=== PATIENT | male | born 1970 | race Caucasian/White ===

== ENCOUNTER 2020-11-15 09:01 | Outpatient (CLI) | payer SELFPAY ==
--- NOTE | 2020-11-15 09:00 | XR_ITS ---
WS: [id number] KUB, AP view, 11/15/2020 Clinical Data: URETERAL STONE Comparison: None. Findings: No abnormal intraabdominal masses are seen. There is no dilatated small bowel or evidence of obstruct ion. There are clustered calcifications to the left of the L3-L4 disc interspace which could be in the pro ximal left ureter. There are calcifications on the left side of the true pelvis which may be phleboli ths but one could be a left UVJ calculus. No calcifications overlying the right renal fossa. XR/XR KUB [id number] Impression: 1. Possible proximal left ureteral calculi. 2. Possible left UVJ calculus.
== END 2020-11-15 09:02 | disposition home or self-care (01) ==
LOC: RAD 09:08
PROVIDERS: PCP Urology; Visit Provider Nurse Practitioner Family
DX: N20.1 Calculus of ureter (principal)
CPT/HCPCS: 74018; 81003; 87077; 87086; 87184

== ENCOUNTER → 2020-11-22 08:31 | Outpatient (BNVA) | payer SELFPAY | PROVIDERS: PCP Urology; Visit Provider Urology | DX: N20.1 Calculus of ureter (principal); Z20.822 Contact with and (suspected) exposure to COVID-19 | CPT/HCPCS: 87635 ==

== ENCOUNTER 2020-11-24 09:21 | Outpatient (CLI) | payer OTHER, SELFPAY ==
--- NOTE | 2020-11-24 10:00 | XR_ITS ---
WS: [id number] Exam: XR KUB [id number] Date/Time of Exam: 11/24/2020 9:47 AM Reason For Exam: STONE Comparison 11/15/2020. A 9 mm irregular calcification is noted along the left paraspinal region at about the level of the L3 -4 disc. This may represent a left ureteral stone. This shows no change in location since previous ex am. Several small left pelvic calcifications are also noted unchanged. No bowel obstruction or free a ir. Moderate amount stool in the colon. No sign of organ enlargement. No other calcifications are see n in the region of the kidneys. XR/XR KUB [id number] IMPRESSION: 1. 9 mm irregular calcification noted along the left paraspinal region at about the level of the L3-4 disc. This shows no change in appearance or location sin ce previous study. This could be a stone in the left ureter. 2. No acute abdominal process noted.
== END 2020-11-24 09:22 | disposition home or self-care (01) ==
LOC: RAD 09:23
PROVIDERS: PCP Urology; Visit Provider Urology
DX: N20.9 Urinary calculus, unspecified (principal); Z20.822 Contact with and (suspected) exposure to COVID-19
CPT/HCPCS: 74018; 81003; 87635

== ENCOUNTER 2020-12-01 11:39 | Day surgery (SDC) | payer SELFPAY ==
[2020-11-30 13:32] VITALS: BMI 49.9
--- NOTE | 2020-12-01 | XR_ITS ---
WS: [id number] KUB, AP view, 12/01/2020 Clinical Data: OR PICS Comparison: KUB, 11/24/2020. Findings: No abnormal intraabdominal masses are seen. There is no dilatated small bowel or evidence of obstruc tion. The 0.9 cm irregular calcification at the level of the left L3 transverse process remains the same. T here are phleboliths in the left side of the true pelvis. No calcifications are overlying the right k idney. XR/XR KUB [id number] Impression: No change in calcification to the left L3 transverse process which could be in the left renal pelvis or proximal ureter.
[2020-12-01 12:13] VITALS: BP 211/117; PULSE 81; RESP 18; TEMP 37; O2SAT 96
[2020-12-01] MEDS: sodium chloride 0.9% 1,000 ML 30 ML IV (13:00)
--- NOTE | 2020-12-01 13:11 | W.PM.OPSUD ---
Surgery/Procedure H&P Update DATE OF PROCEDURE: December 01, 2020 DATE H&P PERFORMED: 11/24/20 H&P UPDATE INFORMATION: I have reviewed H&P completed within last 30 days, I have examined patient prior to procedure, No changes to prior documentation and H&P is in [facility] EMR on date indicated PREOP DIAGNOSIS: Refractory large left ureteral calculus PLANNED PROCEDURE: Operation Date: 12/01/20 13:20 Proposed Procedures p Cystoscopy 21655 36063 N20.1(Not Applicable) - Richy Sterling MD s Ureteral Stent Placement(Left) - Richy Sterling MD s ESWL(Not Applicable) - Richy Sterling MD
--- NOTE | 2020-12-01 13:12 | PM.OP ---
Operative Report Date of procedure: December 01, 2020 Pre-op Diagnosis: Refractory large left ureteral calculus Post-op Diagnosis: Same Procedure Done: 1. Cystoscopy, left ureteral stent placement 2. Extracorporeal shockwave lithotripsy to left ureteral calculus Implants: Left ureteral stent (7 Greenlandic by 26 cm double-pigtail without string) Pathology: None Surgeon: Asher Anesthesia: General Estimated blood loss: None Urine output: Not measured Complications: None Findings: 7 Greenlandic by 26 cm double-pigtail stent placed Stone easily identified and responded very well to treatment. Condition: stable Disposition: PACU Brief History: Mignon is a very pleasant 50-year-old white female with a long history of recurrent urolithiasis. Recently diagnosed with an obstructing left proximal ureteral stone. Symptoms well controlled with conservative measures and ultimately she elected to proceed with ESWL and stent. She has had multiple treatments with ESWL in the past with good response. Very familiar with the procedure stent etc. Procedure: After routine preoperative evaluation examination and obtaining of informed consent she was taken to the operating suite on 12/01/2020 where general anesthesia was administered without difficulty after appropriate timeout was performed, SCDs confirmed to be functioning, preoperative antibiotics administered, beta-simran protocol confirmed. Prepped and draped in usual sterile fashion in dorsolithotomy position paying careful attention to avoiding pressure points. 21 Greenlandic cystoscope with 30 degree lens was introduced into the urethra meatus and advanced into the bladder under videoscopy. Bladder was systematically examined and found to be within normal limits. There were no stones. Flexible tip guidewire was then easily advanced up the left ureter bypassing the stone curling in the area of the renal pelvis and a 7 Greenlandic by 26 cm double-pigtail stent was advanced over the guidewire through the cystoscope into appropriate position as confirmed via fluoroscopy and cystoscopy. Bladder was drained and the scope removed. She was then placed in supine position and the stone was brought to the focal point utilizing biplanar fluoroscopy. Shockwave was initiated intensity of 1 advanced slowly to an intensity of 4. Rate was begun at 60 with relatively early change. Real-time fluoroscopy was utilized for positional changes as needed. After significant change had occurred the right was increased to 80 and the last 500 shocks at 90. By the completion of the procedure the stone appeared to be completely fragmented. She tolerated procedure well without complications and was awakened in the operating room and returned to the cart room in stable condition. PLANS: 1. Anticipate discharge from outpatient surgery today 2. Follow-up next week with KUB and possible cystoscopy with stent removal.
[2020-12-01] MEDS: levofloxacin-dextrose 5 % 500 MG/100 ML PREMIX 100 MG IV (13:20)
--- NOTE | 2020-12-01 13:25 | P.ANESASSM_ITS ---
Pre-Anesthetic Assessment Pre-Anesthetic Assessment: Height/Weight: Height 1.65 m Weight 136.078 kg Temp Pulse Resp BP Pulse Ox 98.6 F 81 18 211/117 96 12/01/20 12:13 12/01/20 12:13 12/01/20 12:13 12/01/20 12:13 12/01/20 12:13 Preop Diagnosis: Refractory large left ureteral calculus Proposed Procedure: Operation Date: 12/01/20 13:20 Proposed Procedures p Cystoscopy 33892 64117 N20.1(Not Applicable) - Richy Sterling MD s Ureteral Stent Placement(Left) - Richy Sterling MD s ESWL(Not Applicable) - Richy Sterling MD Was Beta Erin taken within 24 hours: N/A Was Clonidine taken within 24 hours: N/A Last intake: Intake Last Liquid Date 11/30/20 Last Solid Date 11/30/20 Social: Social History: No alcohol and No tobacco Exam: Pre-Anes Outpt Exam: alert, oriented x 3, clear to auscultation diamante aterally and regular rate & rhythm Airway: Submandibular: WNL Cervical ROM: WNL MP: 2 Dentition: Full : Comments: Kidney stones Metabolic: Metabolic: Morbid obesity Anesthetic Plan: ASA status: 3 Anesthesia: General Risk of > 500 ml blood loss (7ml/kg in children): No PFSH Anesthesia PFSH: Medical History (Updated 11/26/20 @ 08:36 by Richy Sterling MD) History of stent insertion of renal artery BILATERAL Hydroureteronephrosis Left ureteral calculus Surgical History History of knee replacement Hx of appendectomy Family History Other No pertinent family history Social History Smoking and tobacco status: former smoker Alcohol intake: current Alcohol intake frequency: holidays/special occasions only Marital status: Current occupational status: unemployed History of recent travel: No Data Anesthesia Cardiac Studies: No Data to Display
[2020-12-01 14:39] VITALS: BP 167/98; PULSE 70; RESP 16; TEMP 36.3; O2SAT 95
[2020-12-01 14:45] VITALS: BP 165/95; PULSE 78; RESP 20; O2SAT 97
[2020-12-01 14:50] VITALS: BP 138/84; PULSE 79; RESP 20; O2SAT 97
[2020-12-01 14:55] VITALS: BP 157/89; PULSE 90; RESP 20; TEMP 36.4; O2SAT 95
[2020-12-01 14:58] VITALS: BP 163/101; PULSE 83; RESP 20; TEMP 36.4; O2SAT 94
--- NOTE | 2020-12-01 16:28 | ANE.PACU2 ---
Inpatient post-anesthesia follow up: Airway intact: Yes Vital signs: Temperature 97.6 F Pulse Rate 83 Respiratory Rate 20 Blood Pressure 163/101 Pulse Oximetry 94 Oxygen Delivery Me thod Room Air Oxygen Flow Rate 6 Fraction of Inspir ed Oxygen Hydration adequate: Yes Nausea and vomiting: No Pain level: 2 Mental status: Baseline
== END 2020-12-01 16:00 | disposition home or self-care (01) ==
PROVIDERS: PCP Urology; Visit Provider Urology
PROC: 0TJB8ZZ Inspection of Bladder, Via Natural or Artificial Opening Endoscopic (ICD-10-PCS; CPT 52000; principal; 2020-12-01 12:50)
PROC: (CPT 50605; 2020-12-01 12:50)
PROC: (CPT 50590; 2020-12-01 12:50)
DX: N20.1 Calculus of ureter (principal); E66.01 Morbid (severe) obesity due to excess calories; Z68.42 Body mass index [BMI] 45.0-49.9, adult; Z87.891 Personal history of nicotine dependence
CPT/HCPCS: 50590; 52332; 74018; 96365; C2625; J1100; J1956; J2370; J2405; J2704; J2710; J3010; J3490; J7030

== ENCOUNTER 2020-12-13 09:42 | Outpatient (CLI) | payer SELFPAY ==
--- NOTE | 2020-12-13 07:00 | XR_ITS ---
WS: [id number] Exam: XR KUB [id number] Date/Time of Exam: 12/13/2020 9:45 AM Reason For Exam: N20.1 - Calculus of ureter Comparison 12/01/2020. A left-sided ureteral catheter is in place appearing to be in appropriate location. There are small c alcifications superimposing the left kidney most likely representing renal stones. There are several nonspecific pelvic calcifications are noted. No bowel obstruction or free air. Visualized organ arias ns are intact. XR/XR KUB [id number] IMPRESSION: 1. Left-sided ureteral catheter appearing to be in satisfactory position. 2. Several small calcification superimpose the left kidney and apparently repre sent known renal stones. No acute abdominal process.
== END 2020-12-13 09:43 | disposition home or self-care (01) ==
LOC: RAD 09:44
PROVIDERS: PCP Urology; Visit Provider Urology
DX: N20.1 Calculus of ureter (principal); Z96.0 Presence of urogenital implants
CPT/HCPCS: 74018; 81003

== ENCOUNTER 2021-01-25 09:14 | Outpatient (CLI) | payer SELFPAY ==
--- NOTE | 2021-01-25 09:30 | XR_ITS ---
WS: [id number] XR KUB [id number] REASON FOR EXAM: URETERAL CALCULUS FINDINGS: Compared to 12/13/2020 the left ureteral stent has been removed. No urinary tract calculi can be identified. The small calculi seen previously overlying the lower lef t kidney are not identifiable. No other significant abnormality or interval change. XR/XR KUB [id number] IMPRESSION: Left ureteral catheter is been removed. No definite urinary tract calculi ident ified.
== END 2021-01-25 09:15 | disposition home or self-care (01) ==
PROVIDERS: PCP Nurse Practitioner; Visit Provider Urology
DX: N20.1 Calculus of ureter (principal)
CPT/HCPCS: 74018; 81003

== ENCOUNTER → 2021-02-20 10:13 | Outpatient (BNVA) | payer SELFPAY | PROVIDERS: PCP Nurse Practitioner; Visit Provider Nurse Practitioner | DX: I10 Essential (primary) hypertension (principal) | CPT/HCPCS: 80053; 80061; 85025 ==

== ENCOUNTER 2021-03-07 10:27 | Emergency (ER) | payer OTHER, SELFPAY ==
[2021-03-07] VITALS (10 sets, daily range): BP systolic 112–143; BP diastolic 73–94; PULSE 22–98; RESP 15–95; TEMP 37.8; O2SAT 89–96; BMI 51.5
--- NOTE | 2021-03-07 10:36 | XR_ITS ---
WS: [id number] Portable AP upright chest, 03/07/2021 Clinical Data: covid symptoms Comparison: None. Findings: The patient has patchy bilateral pulmonary opacities consistent with pneumonia. The heart is normal. The aortic arch and descending aorta show tortuosity. No nodules, masses or effusions are seen. XR/XR chest 1V portable [id number] Impression: 1. Patchy bilateral pulmonary opacities consistent with pneumonia. 2. Atherosclerosis.
--- NOTE | 2021-03-07 11:33 | ED_ITS ---
HPI - COVID General: Chief Complaint: COVID symptoms Stated Complaint: COVID SYMPTOMS Time Seen by Provider: 03/07/21 11:33 Triage information: Has fever, cough or shortness of breath . Exposure to COVID + person last 14 days History of Present Illness: HPI Narrative: Ms. Valencia is a 50-year-old lady with significant past medical history of hypertension, hyperlipidemia, obesity, and asthma who presents emerged department due to Covid-like symptoms. Symptom onset 1 week ago and subacute. She did have known sick contacts including her 's friend who did not tell her that he was Covid positive and subsequently her developed her symptoms. She endorses initially having headaches which have since resolved, she has had fevers, cough, shortness of breath, nausea, diarrhea for 5 days, and generalized aches and pains. Her symptoms are worse with exertion but do not go with rest. There is no other specific changes in health identified. She has tried daci-bya-kjzudrf medications without significant relief. The intensity symptoms is moderate to severe. The course has been persistent. No other specific exacerbating or alleviating factors identified. COVID Results: SARS-CoV-2 Antigen (Rapid) Positive (Negative) H 03/07/21 11:50 03/07/21 SARS-CoV-2 RNA (RT-PCR) Not detected (NOT DETECTED) 11/24/20 11:35 11/24/20 Nasal/Oral Coronavirus 2019 PCR Not detected 11/22/20 08:31 11/22/20 Review of Systems General: Reports: 10 or more systems reviewed and unremarkable except in HPI and below Narrative: CONSTITUTIONAL: see hpi EYES - denies pain, denies loss of vision EARS - denies ear issues. NOSE - denies congestion or rhinorrhea. THROAT - denies sore throat or difficulty swallowing. CARDIOVASCULAR - denies chest pain and palpitations RESPIRATORY - see hpi GASTROINTESTINAL - see hpi GENITOURINARY - denies dysuria or urinary frequency MUSCULOSKELETAL- see hpi SKIN - denies rashes or new changed skin lesions NEUROLOGIC - denies focal weakness or sensory changes HEMATOLOGIC/LYMPHATIC - denies easy bruising or lymphadenopathy. [facility] PFSH: Medical History Asthma Cystitis cystica Essential (primary) hypertension History of stent insertion of renal artery BILATERAL Hydroureteronephrosis Left ureteral calculus Obesity, morbid, BMI 50 or higher SUZIE on CPAP Renal calculus Retained ureteral stent Surgical History History of knee replacement Right 2000 Hx of appendectomy Family History Other Adopted No pertinent family history Social History Smoking and tobacco status: former smoker Second hand smoke exposure: No Smoking risk assessment/counseling performed?: No Alcohol intake: current Alcohol intake frequency: holidays/special occasions only Desire information about alcohol rehabilitation?: No Counseling given: No Desire information about substance/drug rehabilitation?: No Counseling given: No Adopted: No Caregiver/support person: No Lives independently: Yes Household members: spouse Housing: House Marital status: Number of children: 2 service: No Current occupational status: unemployed Current occupation: Works from home History of recent travel: No Current gender identity: Female Special ching needs: Yes Female Reproductive History: Date of last menstrual period: 01/28/17 Physical Exam Narrative: EXAM NARRATIVE: GENERAL/CONSTITUTIONAL - mildly ill-appearing. No acute distress. obese Eyes - PERRL, no conjunctival injection ENMT - Atraumatic external nose and ears. dry mucous membranes NECK - supple. trachea midline CARDIOVASCULAR - regular rate and rhythm. Peripheral pulses 2+ and equal RESPIRATORY -clear to auscultation bilaterally. No retractions or accessory muscle use. ABDOMEN/GI - Nontender/Nondistended. No tenderness to percussion or evidence of peritonitis MSK - Extremities without obvious deformity or tenderness to palpation SKIN - Warm, Dry NEURO - alert and appropriately oriented. strength and sensation intact. Moves all extremities equally. PSYCH - Appropriate mood and affect Course ED course: - Monitor, IV access, and vital signs obtained. - The patient was seen and evaluated by me at bedside. - Initial evaluation was notable for supplemental oxygen in place. no acute distress. - symptom treatment ordered - Labs notable for covid +. elevated d dimer. mild transaminitis - Imaging notable for no PE, covid pneumonia findings present - patient qualifies for 3 lpm of home O2. - The most likely cause for the patient's symptoms is COVID 19. - The results of ED evaluation were discussed with the patient including the need for follow up with PCP. Return precautions, follow up plan, and prescriptions (including responsible and appropriate use) were discussed with the patient. The patient verbalized understanding and felt safe for discharge. - Upon serial reexamation the patient's condition was improved. They were discharged without incident or clinical deterioration. Vital Signs: Vital signs: Vital Signs Temperature 100.1 F H 03/07/21 10:54 Pulse Rate 85 03/07/21 16:37 Respiratory Rate 22 H 03/07/21 16:37 Blood Pressure 112/75 03/07/21 16:37 Pulse Oximetry 96 03/07/21 16:37 [facility] - COVID Medical Records: Attestation: I reviewed the patient's medical records. Lab Data: Attestation: I reviewed the patient's lab results. Labs: Lab Results 03/07/21 03/07/21 03/07/21 Range/Units 11:35 11:50 11:50 WBC 4.4 (4.0-10.0) 10^3/ uL RBC 4.59 (4.1-5.3) 10^6/u L Hgb 13.4 (11.5-15.3) g/dL Hct 41.5 (37.0-47.0) % MCV 90.4 (81-99) fl MCH 29.2 (28.0-34.0) pg MCHC 32.3 (30.0-36.0) g/dL RDW 14.2 (12.1-15.1) % Plt Count 143 (130-400) 10^3/c mm MPV 10.2 (7.4-10.4) fL Neut % (Auto) 67.5 % Lymph % (Auto) 26.1 % [place] % (Auto) 5.7 % Eos % (Auto) 0.0 % Baso % (Auto) 0.2 % Neut # (Auto) 2.94 (1.8-7.7) 10^3/u L Lymph # (Auto) 1.1 (0.8-4.8) 10^3/u L [place] # (Auto) 0.3 (0.2-0.9) 10^3/u L Eos # (Auto) 0.0 (0.0-0.8) 10^3/u L Baso # (Auto) 0.0 (0.0-0.1) 10^3/u L Nucleated RBC % (a uto) 0 % Nucleated RBCs # 0.0 /100WBC PT 13.60 (12.1-14.9) SECO NDS INR 1.01 (0.8-1.2) APTT 30.7 (23.9-36.7) SECO NDS Fibrinogen 425 (174-498) mg/dL D-Dimer 0.81 H (0-0.59) ug/mIFE U Specimen Type Arterial Sample Site Radial, right ABG pH 7.38 (7.35-7.45) ABG pCO2 35.4 (35-45) mmHg ABG pO2 80.3 (80.0-100.0) mmH g ABG HCO3 20.8 L (22-26) mmol/L ABG Base Excess -3.7 L (-2.0-2.0) mmol/ L Anand Test Pos Hematocrit 40.9 (37-47) % O2 Delivery Device Nc O2 Liters/Min 3.0 % FiO2 32.0 % Community Service Coordinator ID [place] Sodium (136-145) mmol/L Potassium (3.5-5.1) mmol/L Chloride (98-107) mmol/L Carbon Dioxide (22-29) mmol/L Anion Gap (5-19) BUN (6-20) mg/dL Creatinine (0.5-0.9) mg/dL GFR Calculation (90-130) mL/min Glucose (65-115) mg/dL Calculated Osmolal ity (285-295) mOsm/k g Lactic Acid (0.5-2.2) mmol/L Calcium (8.5-10.5) mg/dL Ferritin (15-150) ng/mL Total Bilirubin (0.15-1.2) mg/dL AST (0-32) U/L ALT (0-33) U/L Alkaline Phosphata se (35-105) IU/L Troponin T Gen 5 n g/L (0-10) ng/L Troponin T 120 [place] (0-10) ng/L Delta Troponin T C-Reactive Protein (0.0-4.9) mg/L NT-Pro-B Natriuret Pep (0-125) pg/mL Total Protein (6.6-8.7) g/dL Albumin (3.5-5.2) g/dL Globulin (1.3-4.6) g/dL Procalcitonin (0-0.5) ng/mL SARS-CoV-2 Ag (Rap id) (Negative) 03/07/21 03/07/21 03/07/21 Range/Units 11:50 11:50 11:50 WBC (4.0-10.0) 10^3/ uL RBC (4.1-5.3) 10^6/u L Hgb (11.5-15.3) g/dL Hct (37.0-47.0) % MCV (81-99) fl MCH (28.0-34.0) pg MCHC (30.0-36.0) g/dL RDW (12.1-15.1) % Plt Count (130-400) 10^3/c mm MPV (7.4-10.4) fL Neut % (Auto) % Lymph % (Auto) % [place] % (Auto) % Eos % (Auto) % Baso % (Auto) % Neut # (Auto) (1.8-7.7) 10^3/u L Lymph # (Auto) (0.8-4.8) 10^3/u L [place] # (Auto) (0.2-0.9) 10^3/u L Eos # (Auto) (0.0-0.8) 10^3/u L Baso # (Auto) (0.0-0.1) 10^3/u L Nucleated RBC % (a uto) % Nucleated RBCs # /100WBC PT (12.1-14.9) SECO NDS INR (0.8-1.2) APTT (23.9-36.7) SECO NDS Fibrinogen (174-498) mg/dL D-Dimer (0-0.59) ug/mIFE U Specimen Type Sample Site ABG pH (7.35-7.45) ABG pCO2 (35-45) mmHg ABG pO2 (80.0-100.0) mmH g ABG HCO3 (22-26) mmol/L ABG Base Excess (-2.0-2.0) mmol/ L Anand Test Hematocrit (37-47) % O2 Delivery Device O2 Liters/Min % FiO2 % Community Service Coordinator ID Sodium 135 L (136-145) mmol/L Potassium 4.5 (3.5-5.1) mmol/L Chloride 100 (98-107) mmol/L Carbon Dioxide 22 (22-29) mmol/L Anion Gap 17.5 (5-19) BUN 13 (6-20) mg/dL Creatinine 0.9 (0.5-0.9) mg/dL GFR Calculation 66.3 L (90-130) mL/min Glucose 142 H (65-115) mg/dL Calculated Osmolal ity 283 L (285-295) mOsm/k g Lactic Acid 0.7 (0.5-2.2) mmol/L Calcium 8.0 L (8.5-10.5) mg/dL Ferritin 770 H (15-150) ng/mL Total Bilirubin 0.2 (0.15-1.2) mg/dL AST 81 H (0-32) U/L ALT 44 H (0-33) U/L Alkaline Phosphata se 95 (35-105) IU/L Troponin T Gen 5 n g/L 14 H (0-10) ng/L Troponin T 120 [place] (0-10) ng/L Delta Troponin T C-Reactive Protein 43.9 H (0.0-4.9) mg/L NT-Pro-B Natriuret Pep 32 (0-125) pg/mL Total Protein 6.4 L (6.6-8.7) g/dL Albumin 3.7 (3.5-5.2) g/dL Globulin 2.7 (1.3-4.6) g/dL Procalcitonin 0.11 (0-0.5) ng/mL SARS-CoV-2 Ag (Rap id) (Negative) 03/07/21 03/07/21 Range/Units 11:50 14:21 WBC (4.0-10.0) 10^3/ uL RBC (4.1-5.3) 10^6/u L Hgb (11.5-15.3) g/dL Hct (37.0-47.0) % MCV (81-99) fl MCH (28.0-34.0) pg MCHC (30.0-36.0) g/dL RDW (12.1-15.1) % Plt Count (130-400) 10^3/c mm MPV (7.4-10.4) fL Neut % (Auto) % Lymph % (Auto) % [place] % (Auto) % Eos % (Auto) % Baso % (Auto) % Neut # (Auto) (1.8-7.7) 10^3/u L Lymph # (Auto) (0.8-4.8) 10^3/u L [place] # (Auto) (0.2-0.9) 10^3/u L Eos # (Auto) (0.0-0.8) 10^3/u L Baso # (Auto) (0.0-0.1) 10^3/u L Nucleated RBC % (a uto) % Nucleated RBCs # /100WBC PT (12.1-14.9) SECO NDS INR (0.8-1.2) APTT (23.9-36.7) SECO NDS Fibrinogen (174-498) mg/dL D-Dimer (0-0.59) ug/mIFE U Specimen Type Sample Site ABG pH (7.35-7.45) ABG pCO2 (35-45) mmHg ABG pO2 (80.0-100.0) mmH g ABG HCO3 (22-26) mmol/L ABG Base Excess (-2.0-2.0) mmol/ L Anand Test Hematocrit (37-47) % O2 Delivery Device O2 Liters/Min % FiO2 % Community Service Coordinator ID Sodium (136-145) mmol/L Potassium (3.5-5.1) mmol/L Chloride (98-107) mmol/L Carbon Dioxide (22-29) mmol/L Anion Gap (5-19) BUN (6-20) mg/dL Creatinine (0.5-0.9) mg/dL GFR Calculation (90-130) mL/min Glucose (65-115) mg/dL Calculated Osmolal ity (285-295) mOsm/k g Lactic Acid (0.5-2.2) mmol/L Calcium (8.5-10.5) mg/dL Ferritin (15-150) ng/mL Total Bilirubin (0.15-1.2) mg/dL AST (0-32) U/L ALT (0-33) U/L Alkaline Phosphata se (35-105) IU/L Troponin T Gen 5 n g/L (0-10) ng/L Troponin T 120 [place] 12.75 H (0-10) ng/L Delta Troponin T Not Reportable C-Reactive Protein (0.0-4.9) mg/L NT-Pro-B Natriuret Pep (0-125) pg/mL Total Protein (6.6-8.7) g/dL Albumin (3.5-5.2) g/dL Globulin (1.3-4.6) g/dL Procalcitonin (0-0.5) ng/mL SARS-CoV-2 Ag (Rap id) Positive H (Negative) EKG Data: EKG 1: Attestation: I personally reviewed and interpreted this EKG as follows: EKG interpretation date: 03/07/21 EKG interpretation time: 12:25 Prior EKG tracings: not available for review Interpretation: 12 lead shows regular rhythm at rate of 91 TN 143, QRS 134 Left axis deviation. BBB Interpretation: sinus rhythm. RBBB. EKG 2: Attestation: I personally reviewed and interpreted this EKG as follows: EKG interpretation date: 03/07/21 EKG interpretation time: 14:09 Prior EKG tracings: available for review Interpretation: 12 lead shows regular sinus rhythm at rate of 83 TN 152. QRS 141 L axis deviation. RBBB Interp: sinus rhythm. similar to previous COVID Results: SARS-CoV-2 Antigen (Rapid) Positive (Negative) H 03/07/21 11:50 03/07/21 SARS-CoV-2 RNA (RT-PCR) Not detected (NOT DETECTED) 11/24/20 11:35 11/24/20 Nasal/Oral Coronavirus 2019 PCR Not detected 11/22/20 08:31 11/22/20 Discharge Plan Discharge Patient Disposition: Home Clinical Impression: COVID-19, Transaminitis, Hypoxemia Condition: Stable Prescriptions: No Action valsartan 160 mg tablet 160 mg PO BEDTIME RF: 0 cat's claw (uncaria tomentosa) Liquid See Rx Instructions .ROUTE .COMPLEX RF: 0 Lemon Fenton 2 ml PO DAILY RF: 0 Micro-C Tabs 1 tab PO DAILY RF: 0 Mullein Tabs 1 tab PO DAILY RF: 0 Red Root 1 ml PO DAILY RF: 0 Vitamin B-12 1 tab PO DAILY RF: 0 Zinc Suspension 2 ml PO DAILY RF: 0 Zofran 4 mg tablet 4 mg PO Q8H PRN (Reason: Nausea And Vomiting) RF: 0 Aspir-81 81 mg Tablet,Delayed Release (Dr/Ec) 81 mg PO PRN PRN (Reason: Pain) RF: 0 Discharge Orders: Discharge ED (Routine); Ordered 03/07/21 Ordered By: Lauri Garcia Other Ambulatory Orders: DME: Oxygen (Order) Location: None Selected Ordered By: Lauri Garcia Referrals: Debbie Remy, LANGUAGE TRANSLATOR-C [Primary Care Provider] - Discharge Diet: Usual diet Discharge Activity: Resume usual activity Patient Instructions: Using Oxygen at Home (ED), Pneumonia (ED), Pneumonia - Viral Activity Restrictions/Additional Instructions: Thank you for visiting the emergency department. You were seen and evaluated for concern over COVID-19. You were found to have COVID-19. You will be sent home with home oxygen and a pulse oximeter. I would expect you to improve within the next week. Please return to the emergency department for anything that you are concerned about and feel needs emergency department evaluation. Coding Level of Care Code ED Oyster Buyer for Paco Gill
--- NOTE | 2021-03-07 11:44 | ECG_ITS ---
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 Measurements Intervals [place] Rate: 91 P: 44 HI: 143 QRS: -31 QRSD: 134 T: 3 QT: 341 QTc: 421 Interpretive Statements SINUS RHYTHM LEFT AXIS DEVIATION [QRS AXIS < -30] RIGHT BUNDLE BRANCH BLOCK [120+ ms QRS DURATION, UPRIGHT V1, 40+ ms S IN I/aVL/V4/V5/V6] MINIMAL VOLTAGE CRITERIA FOR LVH, CONSIDER NORMAL VARIANT [MEETS CRITERIA IN ONE OF: R(aVL), S(V1), R(V5), R(V5/V6)+S(V1)] No previous ECG available for comparison Electronically Signed On 03-08-2021 10:38:22 CDT by Chantal Griffin M.D. [id number]
[2021-03-07 11:48] LABS: ABG PCO2 35.4 mmHg (35-45); ABG PH Result 7.38 (7.35-7.45); Arterial Blood Gas Hematocrit 40.9 % (37-47); Base Excess ABG -3.7 mmol/L (-2.0-2.0); Blood Gas Allen Test Pos; Blood Gas Operator Identificat MONRO; Blood Gas Sample Site Radial, right; Blood Gas Sample Type Arterial; HCO3 ABG 20.8 mmol/L (22-26); Oxygen Device NC; PO2 ABG 80.3 mmHg (80.0-100.0)
[2021-03-07 12:19] LABS: INR 1.01 (0.8-1.2); Partial Thromboplastin Time 30.7 SECONDS (23.9-36.7)
[2021-03-07] MEDS: sodium chloride 0.9% 500 ML 999 ML IV (12:19)
[2021-03-07] MEDS: ondansetron 2 mg/ML SDV 2 mL 4 MG IVP (12:19)
[2021-03-07 12:20] LABS: Fibrinogen 425 mg/dL (174-498)
[2021-03-07] MEDS: ketorolac 30 mg/mL INJ 15 MG IVP (12:20)
[2021-03-07] MEDS: acetaminophen 325 mg Tablet 650 MG PO (12:20)
[2021-03-07 12:21] LABS: Basophils % 0.2 %; Hematocrit 41.5 % (37.0-47.0); Hemoglobin 13.4 g/dL (11.5-15.3); Lymphocytes # 1.1 10^3/uL (0.8-4.8); Lymphocytes % 26.1 %; Mean Corpuscular HGB Conc 32.3 g/dL (30.0-36.0); Mean Corpuscular Hemoglobin 29.2 pg (28.0-34.0); Mean Corpuscular Volume 90.4 fl (81-99); Mean Platelet Volume 10.2 fL (7.4-10.4); Monocytes # 0.3 10^3/uL (0.2-0.9); Monocytes % 5.7 %; Neutrophils # 2.94 10^3/uL (1.8-7.7); Neutrophils % 67.5 %; Nucleated Red Blood Cells % 0 %; Platelet Count 143 10^3/cmm (130-400); Red Blood Count 4.59 10^6/uL (4.1-5.3); Red Cell Distribution Width 14.2 % (12.1-15.1); White Blood Count 4.4 10^3/uL (4.0-10.0)
[2021-03-07 12:23] LABS: Lactic Sepsis W/Reflex 0.7 mmol/L (0.5-2.2)
[2021-03-07 12:24] LABS: D Dimer 0.81 ug/mIFEU (0-0.59)
[2021-03-07 12:25] LABS: Troponin T (5th) Once 14 ng/L (0-10)
--- NOTE | 2021-03-07 12:26 | CT_ITS ---
WS: [id number] CTA OF THE CHEST WITH PULMONARY EMBOLISM PROTOCOL TECHNIQUE: High-resolution contrast enhanced CTA of the chest with coronal and sagittal reformatted i mages with pulmonary embolism protocol. MIP images are also reviewed. CLINICAL INFORMATION: d dimer elevated, hypoxemia COMPARISON: None. DLP: 609.[address] scans at [facility] use at least one of these dose optimization techniques: automated e xposure control; mA and/or kV adjustment per patient size (includes targeted exams where dose is matc hed to clinical indication); or iterative reconstruction. FINDINGS: Proximal pulmonary arteries are normal. Normal segmental pulmonary arteries. No evidence of pulmonary embolus. Bilateral perihilar and diffuse scattered groundglass infiltrates mainly in a subpleural distribution compatible with COVID19 pneumonia. Reactive anterior mediastinal and peribronchial lymph nodes. No f ocal consolidation or pleural fluid. Adrenal glands are normal. Small esophageal hiatal hernia. No axillary lymphadenopathy. CT/CT angio chest PE protcl [id number] IMPRESSION: 1. No evidence for pulmonary embolus. 2. Scattered diffuse groundglass infiltrates compatible with COVID 19 Pneumoni a 3. Reactive mediastinal and peribronchial lymph nodes.
[2021-03-07 12:34] LABS: NT Pro B Type Natriuretic Pept 32 pg/mL (0-125); Procalcitonin 0.11 ng/mL (0-0.5)
[2021-03-07 12:46] LABS: Alanine Aminotransferase 44 U/L (0-33); Albumin Level 3.7 g/dL (3.5-5.2); Alkaline Phosphatase 95 IU/L (35-105); Anion Gap 17.5 (5-19); Aspartate Amino Transferase 81 U/L (0-32); Blood Urea Nitrogen 13 mg/dL (6-20); C Reactive Protein 43.9 mg/L (0.0-4.9); Carbon Dioxide 22 mmol/L (22-29); Chloride 100 mmol/L (98-107); Ferritin 770 ng/mL (15-150); Globulin 2.7 g/dL (1.3-4.6); Glomerular Filtration Rate 66.3 mL/min (90-130); Glucose 142 mg/dL (65-115); Osmolality Calculated 283 mOsm/kg (285-295); Potassium 4.5 mmol/L (3.5-5.1); Sodium 135 mmol/L (136-145); Total Bilirubin 0.2 mg/dL (0.15-1.2); Total Protein 6.4 g/dL (6.6-8.7)
[2021-03-07 12:50] LABS: SARS Covid-2 Antigen Positive (Negative)
[2021-03-07] MEDS: iohexol 350 mg/mL 100 mL Btl IV (13:35)
--- NOTE | 2021-03-07 13:50 | ECG_ITS ---
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 Measurements Intervals [place] Rate: 83 P: 46 IN: 152 QRS: -29 QRSD: 141 T: -2 QT: 362 QTc: 427 Interpretive Statements SINUS RHYTHM BORDERLINE LEFT AXIS DEVIATION [QRS AXIS < -20] RIGHT BUNDLE BRANCH BLOCK [120+ ms QRS DURATION, UPRIGHT V1, 40+ ms S IN I/aVL/V4/V5/V6] MINIMAL VOLTAGE CRITERIA FOR LVH, CONSIDER NORMAL VARIANT [MEETS CRITERIA IN ONE OF: R(aVL), S(V1), R(V5), R(V5/V6)+S(V1)] Compared to ECG 03/07/2021 12:18:15 No significant changes Electronically Signed On 03-07-2021 17:03:15 CDT by Chantal Griffin M.D. [id number]
[2021-03-07 14:58] LABS: Troponin 5 2HR 12.75 ng/L (0-10)
== END 2021-03-07 16:39 | disposition home or self-care (01) ==
PROVIDERS: Physician Assistant; Emergency Provider Emergency Medicine; PCP Nurse Practitioner
DX: U07.1 COVID-19 (principal); R74.01 Elevation of levels of liver transaminase levels; R09.02 Hypoxemia; Z79.82 Long term (current) use of aspirin; I10 Essential (primary) hypertension; Z87.891 Personal history of nicotine dependence
CPT/HCPCS: 36415; 36600; 71045; 71275; 80053; 82728; 82803; 83605; 83880; 84145; 84484; 85025; 85378; 85384; 85610; 85730; 86140; 87426; 93005; 96374; 96375; 99284; J1885; J2405; J7040; Q9967

== ENCOUNTER 2021-03-08 02:09 | Inpatient (IN) | payer OTHER, SELFPAY ==
[2021-03-08] VITALS (16 sets, daily range): BP systolic 119–179; BP diastolic 71–94; PULSE 87–104; RESP 16–30; TEMP 36.5–38; O2SAT 89–96; BMI 51.5
--- NOTE | 2021-03-08 02:13 | XRR_ITS ---
PROCEDURE INFORMATION: Exam: XR Chest Exam date and time: 03/08/2021 2:13 AM Age: 50 years old Clinical indication: Shortness of breath; Patient HX: Worsening SOB and hypoxia. Covid + TECHNIQUE: Imaging protocol: XR of the chest. Views: 1 view. COMPARISON: CR XR chest 1V portable [id number] 03/07/2021 10:50 AM FINDINGS: Lungs: Bilateral [id number] pulmonary opacities most consistent with pneumonia. Pleural spaces: Unremarkable. No pleural effusion. No pneumothorax. Heart/Mediastinum: Unremarkable. No cardiomegaly. Bones/joints: Moderate thoracic spondylosis. XR/XR chest 1V portable [id number] IMPRESSION: Bilateral [id number] pulmonary opacities most consistent with pneumonia.
--- NOTE | 2021-03-08 02:15 | ED_ITS ---
HPI - SOB/Dyspnea General: Chief Complaint: Shortness of Breath/Dyspnea Stated Complaint: COVID/SOB Time Seen by Provider: 03/08/21 02:10 Source: patient and EMS Mode of arrival: EMS Limitations: no limitations History of Present Illness: HPI Narrative: 2-year-old female who was seen here yesterday and was diagnosed with Covid pneumonia. Patient was placed on home oxygen she states that with any movement or activity she has been getting hypoxic at home. We met states that had to turn her oxygen up from 3-4 and she did dip to the 80s when she stood to get on there caught. She states she has had 8 days of symptoms now. Associated symptoms: Deny abdominal pain, chest pain, nausea or vomiting Review of Systems Const: Reports: chills Eyes: Denies: blurry vision or eye discomfort ENMT: Denies: throat pain or dental pain Card: Denies: chest pain Resp: Reports: dyspnea and non-productive cough GI: Denies: abdominal pain, nausea, vomiting or diarrhea : Denies: dysuria Musc: Denies: neck pain or back pain Skin/Breast: Denies: rash Neuro: Denies: headache(s) Psych: Denies: depression Jameson/Lymph: Denies: easy bruising All/Imm: Denies: urticaria PFSH ED PFSH: Medical History Asthma Cystitis cystica Essential (primary) hypertension History of stent insertion of renal artery BILATERAL Hydroureteronephrosis Left ureteral calculus Obesity, morbid, BMI 50 or higher SUZIE on CPAP Renal calculus Retained ureteral stent Surgical History History of knee replacement Right 2000 Hx of appendectomy Family History Other Adopted No pertinent family history Social History Smoking and tobacco status: former smoker Second hand smoke exposure: No Smoking risk assessment/counseling performed?: No Alcohol intake: current Alcohol intake frequency: holidays/special occasions only Desire information about alcohol rehabilitation?: No Counseling given: No Desire information about substance/drug rehabilitation?: No Counseling given: No Adopted: No Caregiver/support person: No Lives independently: Yes Household members: spouse Housing: House Marital status: Number of children: 2 service: No Current occupational status: unemployed Current occupation: Works from home History of recent travel: No Current gender identity: Female Special ching needs: Yes Female Reproductive History: Date of last menstrual period: 01/28/17 Physical Exam Const: COMMON NORMALS: no acute distress, patient oriented x3 and healthy appearing HENMT: COMMON NORMALS: normocephalic and atraumatic HEAD & SCALP: normocephalic and atraumatic Eye: COMMON NORMALS: Equal, round and reactive pupils present and EOMs intact bilaterally PUPIL: Yes Equal, round and reactive pupils present Neck/C-Spine: COMMON NORMALS: full ROM and supple Chest: COMMONS NORMALS: normal inspection of the chest and normal palpation of entire chest wall Resp: COMMON NORMALS: No retractions and No use of accessory muscles EFFORT & INSPECTION: Yes tachypneic AUSCULTATION: rales Cardio: COMMON NORMALS: regular rate, regular rhythm and No murmurs present (Cardio) RATE: regular rate RHYTHM: regular rhythm GI: COMMON NORMALS: Normal to inspection, nondistended, normoactive bowel sounds present, Soft to palpation, non-tender and no masses PALPATION: Yes Soft to palpation Extremity: COMMON NORMALS: normal to inspection and full ROM Neuro: COMMON NORMALS: patient oriented x3, moves all extremities and no focal motor deficits Psych: COMMON NORMALS: mental status grossly normal, Normal thought process present and cooperative THOUGHT PROCESS: Normal thought process present Skin: COMMON NORMALS: no rashes or lesions noted and no wounds GENERAL SKIN EXAM: no rashes or lesions noted Course Vital Signs: Vital signs: Vital Signs Temperature 100.4 F H 03/08/21 02:16 Pulse Rate 93 03/08/21 02:55 Respiratory Rate 22 H 03/08/21 02:50 Blood Pressure 179/94 03/08/21 02:16 Pulse Oximetry 93 03/08/21 02:50 MDM - SOB/Dyspnea MDM Narrative: Medical decision making narrative: Patient presents here with COVID-19 pneumonia. X-ray is worsening from earlier and she is requiring more oxygen. Spoke to hospitalist and will admit. Lab Data: Labs: Lab Results 03/08/21 03/08/21 03/08/21 Range/Units 02:40 02:40 02:52 Specimen Type Arterial Sample Site Radial, right ABG pH 7.37 (7.35-7.45) ABG pCO2 38.9 (35-45) mmHg ABG pO2 66.0 L (80.0-100.0) mmH g ABG HCO3 22.6 (22-26) mmol/L ABG Base Excess -2.4 L (-2.0-2.0) mmol/ L Anand Test Pos Hematocrit 40.2 (37-47) % O2 Delivery Device Nc O2 Liters/Min 4.0 % Television Engineer ID Harkr Sodium 134 L (136-145) mmol/L Potassium 4.1 (3.5-5.1) mmol/L Chloride 101 (98-107) mmol/L Carbon Dioxide 21 L (22-29) mmol/L Anion Gap 16.1 (5-19) BUN 15 (6-20) mg/dL Creatinine 0.8 (0.5-0.9) mg/dL GFR Calculation 75.9 L (90-130) mL/min Glucose 153 H (65-115) mg/dL Calculated Osmolal ity 282 L (285-295) mOsm/k g Lactic Acid 0.5 (0.5-2.2) mmol/L Calcium 8.1 L (8.5-10.5) mg/dL Total Bilirubin 0.2 (0.15-1.2) mg/dL AST 91 H (0-32) U/L ALT 48 H (0-33) U/L Alkaline Phosphata se 92 (35-105) IU/L C-Reactive Protein 53.0 H (0.0-4.9) mg/L NT-Pro-B Natriuret Pep 29 (0-125) pg/mL Total Protein 6.5 L (6.6-8.7) g/dL Albumin 3.4 L (3.5-5.2) g/dL Globulin 3.1 (1.3-4.6) g/dL Imaging Data^: CXR: Attestation: I personally reviewed and interpreted this imaging study as follows: My impression: Bilateral infiltrates consistent with Covid pneumonia Discharge Plan Discharge Patient Disposition: Admitted As Inpatient Clinical Impression: Pneumonia due to 2019-nCoV Condition: Stable Coding Level of Care Code ED Innersole Maker for [facility] Fwd Exam Comprehensive
[2021-03-08] MEDS: dexamethasone 4 mg/mL INJ 6 MG IVP (02:42)
[2021-03-08] MEDS: acetaminophen 325 mg Tablet 650 MG PO ×2 (02:50→18:05)
[2021-03-08] MEDS: albuterol 8 gm MDI 2 PUFF INHALATION (02:50)
[2021-03-08 02:56] LABS: Hematocrit 39.9 % (37.0-47.0); Mean Corpuscular HGB Conc 32.6 g/dL (30.0-36.0); Mean Corpuscular Hemoglobin 29.7 pg (28.0-34.0); Mean Corpuscular Volume 91.1 fl (81-99); Mean Platelet Volume 10.2 fL (7.4-10.4); Platelet Count 141 10^3/cmm (130-400); Red Blood Count 4.38 10^6/uL (4.1-5.3); Red Cell Distribution Width 14.1 % (12.1-15.1); White Blood Count 4.9 10^3/uL (4.0-10.0)
[2021-03-08 03:04] LABS: ABG PCO2 38.9 mmHg (35-45); ABG PH Result 7.37 (7.35-7.45); Arterial Blood Gas Hematocrit 40.2 % (37-47); Base Excess ABG -2.4 mmol/L (-2.0-2.0); Blood Gas Allen Test Pos; Blood Gas Operator Identificat HARKR; Blood Gas Sample Site Radial, right; Blood Gas Sample Type Arterial; HCO3 ABG 22.6 mmol/L (22-26); Oxygen Device NC
[2021-03-08 03:16] LABS: Lactic Sepsis W/Reflex 0.5 mmol/L (0.5-2.2)
[2021-03-08 03:22] LABS: Alanine Aminotransferase 48 U/L (0-33); Albumin Level 3.4 g/dL (3.5-5.2); Alkaline Phosphatase 92 IU/L (35-105); Anion Gap 16.1 (5-19); Aspartate Amino Transferase 91 U/L (0-32); Blood Urea Nitrogen 15 mg/dL (6-20); Calcium 8.1 mg/dL (8.5-10.5); Carbon Dioxide 21 mmol/L (22-29); Chloride 101 mmol/L (98-107); Globulin 3.1 g/dL (1.3-4.6); Glomerular Filtration Rate 75.9 mL/min (90-130); Glucose 153 mg/dL (65-115); NT Pro B Type Natriuretic Pept 29 pg/mL (0-125); Osmolality Calculated 282 mOsm/kg (285-295); Potassium 4.1 mmol/L (3.5-5.1); Sodium 134 mmol/L (136-145); Total Bilirubin 0.2 mg/dL (0.15-1.2); Total Protein 6.5 g/dL (6.6-8.7)
[2021-03-08 03:27] LABS: Slide Review Slide Review Perform
[2021-03-08 03:30] LABS: Absolute Neutrophil 3.5 10^3/cmm (1.4-6.5); Absolute Segmented Neutrophil 2.5 10/cmm (1.6-7.1); Band Neutrophils Absolute 0.9 10^3/cmm (0.0-1.2); Eosinophils 0 %; Lymphocytes 22 %; Lymphocytes Absolute 1.2 10^3/cmm (1.2-3.4); Monocytes Absolute 0.2 10^3/cmm (0.1-0.6); Platelet Estimate Normal (Normal); Segmented Neutrophils 52 %; Total Cells Counted 100 (0-100)
--- NOTE | 2021-03-08 04:24 | PM.HP ---
Providers/Chief Complaint Admitting Physician: Eboni Wiseman MD Primary Care Provider: Debbie Remy, PAPER GRADER-C Chief Complaint: COVID/SOB History of Present Illness Mignon Valencia is a 50 year old female with Asthma, Cystitis cystica, hypertension, CAD, SUZIE on CPAP, p/w fever, cough, shortness of breath,generalized bodyache, diarrhea for 5 days. She tested COVID + yesterday. Had presented to the ER at the time, arranged to have 3lpm supplemental 02 at home and discharged. Returned today with worsening symptoms, 02 sat dipping in the 70s at home. CXR shows B/L infiltrates s/o COVID 19 pneumonia. Review of Systems General: Reports: 10 or more systems reviewed and unremarkable except in HPI and below Const: Reports: fever(s), chills and body aches Eyes: Denies: change in vision, blurry vision or photophobia ENMT: Reports: hoarseness; Denies: throat pain, enlarged tonsils, odynophagia or nasal congestion Card: Denies: chest pain, palpitations, irregular heart rhythm, edema, swelling of feet/ankles, lightheadedness, pre-syncope, dyspnea on exertion or orthopnea Resp: Denies: dyspnea, productive cough, non-productive cough, wheezing, stridor, pain on inspiration, change in phlegm color, hemoptysis or chest congestion GI: Denies: abdominal pain, nausea, vomiting, hematemesis, coffee ground emesis, dysphagia, heartburn, diarrhea, constipation, GI cramping, change in stool character, hematochezia or melena : Denies: flank pain, difficulty voiding, dysuria, urinary frequency, urinary urgency, urinary hesitancy or hematuria Musc: Denies: neck pain, back pain, extremity pain, joint swelling, joint warmth or deformity Neuro: Denies: headache(s), numbness in extremities, weakness in extremities, sensory changes, difficulty walking, frequent falls, dizziness, vertigo, behavioral changes, Slurred speech present or seizure-like activity Psych: Denies: anxiety, depression, suicidal ideation or homicidal ideation Endo: Denies: polyuria, polydipsia, tired all the time, cold intolerance or hot flashes Jameson/Lymph: Denies: easy bruising or easy bleeding Medications/Allergies Home Medications Medication Instructions Recorded Confirmed Last Taken Type Nadeen 160 mg PO DAILY 03/07/21 03/07/21 Unknown History ondansetron HCl [Zofran] 4 mg PO Q8H 5 Days #15 tab 03/07/21 Unknown Rx Allergies Allergy/AdvReac Type Severity Reaction Status Date / Time hydromorphone [From Dilaudid] AdvReac DOES NOT Verified 01/25/21 13:38 RESPOND TO THIS PAIN MED morphine AdvReac DOES NOT Verified 01/25/21 13:38 RESPOND TO THIS PAIN MED PFSH Acute PFSH: Medical History Asthma Cystitis cystica Essential (primary) hypertension History of stent insertion of renal artery BILATERAL Hydroureteronephrosis Left ureteral calculus Obesity, morbid, BMI 50 or higher SUZIE on CPAP Renal calculus Retained ureteral stent Surgical History History of knee replacement Right 2000 Hx of appendectomy Family History Other Adopted No pertinent family history Social History Smoking and tobacco status: former smoker Second hand smoke exposure: No Smoking risk assessment/counseling performed?: No Alcohol intake: current Alcohol intake frequency: holidays/special occasions only Desire information about alcohol rehabilitation?: No Counseling given: No Desire information about substance/drug rehabilitation?: No Counseling given: No Adopted: No Caregiver/support person: No Lives independently: Yes Household members: spouse Housing: House Marital status: Number of children: 2 service: No Current occupational status: unemployed Current occupation: Works from home History of recent travel: No Current gender identity: Female Special ching needs: Yes Female Reproductive History: Date of last menstrual period: 01/28/17 Vitals/I&O/Wt Last Vital Signs Temp 100.4 F H 03/08/21 02:16 Pulse 93 03/08/21 02:55 Resp 22 H 03/08/21 02:50 BP 179/94 03/08/21 02:16 Pulse Ox 93 03/08/21 02:50 Weight last 48 hrs Weight 136.078 kg Physical Exam Narrative: EXAM NARRATIVE: General: No acute distress, AO x3 HEENT: PERRLA, pupils bilaterally equal and reactive, pallors not present Chest: Scattered wheezing to auscultation all areas CVS: S1-S2 regular, no murmurs, no tachycardia, no gallops, no rubs Abdomen: Soft, nontender, no organomegaly, bowel sounds present Neuro: No focal deficits, no facial deformity, AO x3, power 5/5 in all limbs Data : 03/08/21 02:40 03/08/21 02:40 A&P Assessment and plan (1) Pneumonia due to 2019-nCoV: Remdisivir 200mg iv x 1 followed by 100mg iv daily dexamethasone 6mg IVP daily duoneb q6h, budesonide q12h empiric CTX and azithromycin Flutter valve/spirometer at bedside trend inflammatory markers including CRP CTA negative for PE Status: Acute Attestations Medical Necessity Statement*: >2 midnight admission anticipated for above defined care Coding Level of Care Code Acute Lead Dental Assistant for [facility] Fwd Diagnoses Pneumonia due to 2019-nCoV U07.1; J12.82
[2021-03-08] MEDS: remdesivir 200 MG in sodium chloride 0.9% (100 ml) 100 ML 100 MG IV (05:10)
[2021-03-08] MEDS: ipratropium-albuterol 3 mL Neb INHALATION ×4 (05:16→20:38)
[2021-03-08] MEDS: azithromycin 500 MG in sodium chloride 0.9% 250 ML 250 MG PO (05:29)
[2021-03-08] MEDS: enoxaparin 40 mg/0.4 mL Syringe SUBCUT (05:29)
[2021-03-08] MEDS: ondansetron 2 mg/ML SDV 2 mL 4 MG IVP (06:04)
[2021-03-08] MEDS: cefTRIAXone 1,000 MG in sodium chloride 0.9% (plus) 50 ML 100 MG IV (06:24)
[2021-03-08] MEDS: pantoprazole DR 40 mg Tablet PO (08:12)
--- NOTE | 2021-03-08 08:28 | PC.PHAR ---
pt states she takes care of her own medications-pt states the macrobid was dced ext med history shows last filled on 02/15/21 30d/s-pt states she takes the medications entered
[2021-03-08] MEDS: budesonide 0.5 mg/2 mL Neb INHALATION ×2 (09:33→20:38)
[2021-03-08] MEDS: benzonatate 100 mg Capsule PO (13:20)
--- NOTE | 2021-03-08 15:20 | P.PN_ITS ---
Subjective Subjective: Interval history: GetPatient was seen this morning, she complains of shortness of breath with minimal movement to the bathroom, sometimes when she is changing positions in bed, currently on 4 L, has a persistent cough, no chest pain Vitals/I&O/Wt Last Vital Signs Temp 97.7 F 03/08/21 12:00 Pulse 87 03/08/21 12:00 Resp 18 03/08/21 12:00 BP 125/78 03/08/21 12:00 Pulse Ox 91 03/08/21 12:00 03/08/21 03/08/21 03/08/21 06:59 14:59 22:59 Intake Total 350 / 350 50 / 50 Balance 350 / 350 50 / 50 Weight last 48 hrs Weight 136.078 kg Physical Exam Const: COMMON NORMALS: no acute distress and patient oriented x3 Resp: COMMON NORMALS: normal respiratory effort, No retractions, No use of accessory muscles and clear to auscultation bilaterally AUSCULTATION: clear to auscultation bilaterally Cardio: COMMON NORMALS: regular rate, regular rhythm, S1 normal heart sound present and S2 normal heart sound present RATE: regular rate RHYTHM: regular rhythm HEART SOUNDS: S1 normal heart sound present and S2 normal heart sound present GI: COMMON NORMALS: Normal to inspection, nondistended, normoactive bowel sounds present, Soft to palpation, non-tender and No hepatosplenomegaly present PALPATION: Yes Soft to palpation and Yes No hepatosplenomegaly present Extremity: COMMON NORMALS: no pedal edema Neuro: COMMON NORMALS: patient oriented x3 Data : 03/08/21 02:40 03/08/21 02:40 A&P Assessment and plan (1) Pneumonia due to 2019-nCoV: Remdisivir 200mg iv x 1 followed by 100mg iv daily dexamethasone 6mg IVP daily duoneb q6h, budesonide q12h empiric CTX and azithromycin Flutter valve/spirometer at bedside trend inflammatory markers including CRP CTA negative for PE Plan for today continue remdesivir, Decadron, nebulizers, antibiotics, clinically monitor, Status: Acute (2) Transaminitis: Status: Acute (3) Obesity, morbid, BMI 50 or higher: Status: Chronic (4) Essential (primary) hypertension: Status: Chronic Attestations Medical Necessity Statement*: Patient requires hospitalization for COVID-19 pneumonia Coding Level of Care Code Acute Construction Scheduler for [facility] Fwd Diagnoses Pneumonia due to 2019-nCoV U07.1; J12.82 Transaminitis R74.01 Obesity, morbid, BMI 50 or higher E66.01 Essential (primary) hypertension I10
[2021-03-09] VITALS (14 sets, daily range): BP systolic 112–152; BP diastolic 78–91; PULSE 85–100; RESP 16–28; TEMP 36.6–37; O2SAT 83–92
[2021-03-09] MEDS: benzonatate 100 mg Capsule PO ×2 (01:25→10:30)
[2021-03-09] MEDS: dexamethasone 4 mg/mL INJ 6 MG IVP (03:30)
[2021-03-09] MEDS: enoxaparin 40 mg/0.4 mL Syringe SUBCUT (03:32)
[2021-03-09] MEDS: ipratropium-albuterol 3 mL Neb INHALATION ×4 (03:40→22:05)
[2021-03-09] MEDS: azithromycin 500 MG in sodium chloride 0.9% 250 ML 250 MG PO (05:15)
[2021-03-09] MEDS: cefTRIAXone 1,000 MG in sodium chloride 0.9% (plus) 50 ML 100 MG IV (06:10)
[2021-03-09 06:29] LABS: Basophils % 0.1 %; Hematocrit 40.8 % (37.0-47.0); Hemoglobin 12.7 g/dL (11.5-15.3); Lymphocytes # 0.7 10^3/uL (0.8-4.8); Mean Corpuscular HGB Conc 31.1 g/dL (30.0-36.0); Mean Corpuscular Hemoglobin 29.3 pg (28.0-34.0); Mean Corpuscular Volume 94.2 fl (81-99); Mean Platelet Volume 10.4 fL (7.4-10.4); Monocytes # 0.3 10^3/uL (0.2-0.9); Monocytes % 4.7 %; Neutrophils # 5.78 10^3/uL (1.8-7.7); Neutrophils % 84.8 %; Nucleated Red Blood Cells % 0 %; Platelet Count 167 10^3/cmm (130-400); Red Blood Count 4.33 10^6/uL (4.1-5.3); Red Cell Distribution Width 14.1 % (12.1-15.1); White Blood Count 6.8 10^3/uL (4.0-10.0)
[2021-03-09 06:38] LABS: INR 1.04 (0.8-1.2)
[2021-03-09 06:41] LABS: D Dimer 1.28 ug/mIFEU (0-0.59)
[2021-03-09] MEDS: remdesivir 100 MG in sodium chloride 0.9% (100 ml) 100 ML IV (06:42)
[2021-03-09 06:43] LABS: Lactate (Lactic Acid level) 1.1 mmol/L (0.5-2.2)
[2021-03-09 06:51] LABS: Alanine Aminotransferase 49 U/L (0-33); Albumin Level 3.4 g/dL (3.5-5.2); Alkaline Phosphatase 91 IU/L (35-105); Anion Gap 15.3 (5-19); Aspartate Amino Transferase 75 U/L (0-32); Blood Urea Nitrogen 11 mg/dL (6-20); Calcium 8.4 mg/dL (8.5-10.5); Carbon Dioxide 22 mmol/L (22-29); Chloride 104 mmol/L (98-107); Globulin 3.3 g/dL (1.3-4.6); Glomerular Filtration Rate 75.9 mL/min (90-130); Glucose 247 mg/dL (65-115); Osmolality Calculated 292 mOsm/kg (285-295); Potassium 4.3 mmol/L (3.5-5.1); Sodium 137 mmol/L (136-145); Total Bilirubin 0.2 mg/dL (0.15-1.2); Total Protein 6.7 g/dL (6.6-8.7)
[2021-03-09 06:59] LABS: NT Pro B Type Natriuretic Pept 122 pg/mL (0-125); Procalcitonin 0.09 ng/mL (0-0.5)
[2021-03-09 07:10] LABS: C Reactive Protein 43.8 mg/L (0.0-4.9)
[2021-03-09 07:28] LABS: Creatine Phosphokinase 2700 U/L (26-192)
[2021-03-09] MEDS: pantoprazole DR 40 mg Tablet PO (08:02)
[2021-03-09] MEDS: budesonide 0.5 mg/2 mL Neb INHALATION ×2 (10:14→22:05)
[2021-03-09] MEDS: sodium chloride 0.9% 1,000 ML 50 ML IV (10:31)
[2021-03-09] MEDS: guaiFENesin 600 mg Tablet PO ×2 (11:08→17:02)
[2021-03-09] MEDS: acetaminophen-codeine 120-12 mg/5 mL UDC 2.5 ML PO (11:08)
--- NOTE | 2021-03-09 14:48 | P.PN_ITS ---
Subjective Subjective: Interval history: Patient was seen this morning, she continues to complain of severe cough, she tells me that she develops bowel incontinence whenever she coughs if that severe, she does have shortness of breath with minimal exertion Vitals/I&O/Wt Last Vital Signs Temp 97.9 F 03/09/21 11:27 Pulse 99 03/09/21 11:27 Resp 16 03/09/21 11:27 BP 131/86 03/09/21 11:27 Pulse Ox 89 L 03/09/21 11:27 03/08/21 03/09/21 03/09/21 22:59 06:59 14:59 Intake Total 240 / 290 400 / 690 340 / 340 Output Total 580 / 580 Balance 240 / 290 -180 / 110 340 / 340 Weight last 48 hrs Weight 136.078 kg Physical Exam Const: COMMON NORMALS: no acute distress and patient oriented x3 Resp: COMMON NORMALS: normal respiratory effort, No retractions and No use of accessory muscles AUSCULTATION: wheezes Cardio: COMMON NORMALS: regular rate, regular rhythm, S1 normal heart sound present and S2 normal heart sound present RATE: regular rate RHYTHM: regular rhythm HEART SOUNDS: S1 normal heart sound present and S2 normal heart sound present GI: COMMON NORMALS: Normal to inspection, nondistended, normoactive bowel sounds present, Soft to palpation and non-tender PALPATION: Yes Soft to palpation Extremity: COMMON NORMALS: no pedal edema Neuro: COMMON NORMALS: patient oriented x3 Psych: COMMON NORMALS: mental status grossly normal Data : 03/09/21 05:55 03/09/21 05:55 Micro: Microbiology 03/08/21 04:30 Stool Lactoferrin - Final Stool Enteric Pathogens (PCR) - Final C.difficile Toxin B Gene (PCR) - Final Occult Blood (FIT) - Final A&P Assessment and plan (1) Pneumonia due to 2019-nCoV: Currently on 6 to 7 L, no evidence of respiratory distress, does have wheezing on exam Remdisivir 200mg iv x 1 followed by 100mg iv daily dexamethasone 6mg IVP daily duoneb q6h, budesonide q12h empiric CTX and azithromycin Tessalon Perles, Mucinex, time with codeine for cough Await C. difficile For rhabdomyolysis, start gentle IV hydration Flutter valve/spirometer at bedside trend inflammatory markers including CRP CTA negative for PE Plan for today continue remdesivir, Decadron, nebulizers, antibiotics, clinically monitor, Status: Acute (2) Transaminitis: Status: Acute (3) Obesity, morbid, BMI 50 or higher: Status: Chronic (4) Essential (primary) hypertension: Status: Chronic (5) Rhabdomyolysis: Status: Acute Attestations Medical Necessity Statement*: Patient requires hospitalization due to pneumonia secondary COVID-19 Coding Level of Care Code Acute Motor Vehicle Light Assembler for [facility] Diagnoses Pneumonia due to 2019-nCoV U07.1; J12.82 Transaminitis R74.01 Obesity, morbid, BMI 50 or higher E66.01 Essential (primary) hypertension I10 Rhabdomyolysis M62.82
[2021-03-10] VITALS (19 sets, daily range): BP systolic 124–169; BP diastolic 71–108; PULSE 74–99; RESP 18–28; TEMP 36.4–36.9; O2SAT 82–98
[2021-03-10] MEDS: dexamethasone 4 mg/mL INJ 6 MG IVP (04:07)
[2021-03-10] MEDS: azithromycin 500 MG in sodium chloride 0.9% 250 ML 250 MG PO (04:07)
[2021-03-10] MEDS: enoxaparin 40 mg/0.4 mL Syringe SUBCUT (04:07)
[2021-03-10] MEDS: acetaminophen-codeine 120-12 mg/5 mL UDC 2.5 ML PO ×2 (04:19→19:54)
[2021-03-10] MEDS: benzonatate 100 mg Capsule 200 MG PO (04:20)
[2021-03-10] MEDS: cefTRIAXone 1,000 MG in sodium chloride 0.9% (plus) 50 ML 100 MG IV (05:11)
[2021-03-10] MEDS: sodium chloride 0.9% 1,000 ML 50 ML IV (06:01)
[2021-03-10] MEDS: remdesivir 100 MG in sodium chloride 0.9% (100 ml) 100 ML IV (06:01)
[2021-03-10] MEDS: pantoprazole DR 40 mg Tablet PO (07:14)
[2021-03-10] MEDS: guaiFENesin 600 mg Tablet PO ×2 (07:14→16:56)
[2021-03-10 07:36] LABS: Basophils % 0.1 %; Hematocrit 39.1 % (37.0-47.0); Lymphocytes # 0.8 10^3/uL (0.8-4.8); Lymphocytes % 9.9 %; Mean Corpuscular HGB Conc 30.7 g/dL (30.0-36.0); Mean Corpuscular Hemoglobin 29.1 pg (28.0-34.0); Mean Corpuscular Volume 94.9 fl (81-99); Mean Platelet Volume 10.3 fL (7.4-10.4); Monocytes # 0.3 10^3/uL (0.2-0.9); Monocytes % 4.4 %; Neutrophils % 84.4 %; Nucleated Red Blood Cells % 0 %; Platelet Count 212 10^3/cmm (130-400); Red Blood Count 4.12 10^6/uL (4.1-5.3); Red Cell Distribution Width 14.2 % (12.1-15.1); White Blood Count 7.7 10^3/uL (4.0-10.0)
[2021-03-10 07:50] LABS: INR 1.05 (0.8-1.2)
[2021-03-10 08:00] LABS: Lactate (Lactic Acid level) 0.9 mmol/L (0.5-2.2)
[2021-03-10 08:11] LABS: NT Pro B Type Natriuretic Pept 199 pg/mL (0-125); Procalcitonin 0.08 ng/mL (0-0.5)
[2021-03-10 08:23] LABS: Alanine Aminotransferase 44 U/L (0-33); Albumin Level 3.4 g/dL (3.5-5.2); Alkaline Phosphatase 88 IU/L (35-105); Anion Gap 16.9 (5-19); Aspartate Amino Transferase 57 U/L (0-32); Blood Urea Nitrogen 11 mg/dL (6-20); C Reactive Protein 35.2 mg/L (0.0-4.9); Calcium 8.3 mg/dL (8.5-10.5); Carbon Dioxide 22 mmol/L (22-29); Chloride 106 mmol/L (98-107); Globulin 3.1 g/dL (1.3-4.6); Glomerular Filtration Rate 88.6 mL/min (90-130); Glucose 205 mg/dL (65-115); Magnesium 2.1 mg/dL (1.7-2.3); Osmolality Calculated 295 mOsm/kg (285-295); Phosphorus 2.3 mg/dL (2.5-4.5); Potassium 4.9 mmol/L (3.5-5.1); Sodium 140 mmol/L (136-145); Total Bilirubin 0.2 mg/dL (0.15-1.2); Total Protein 6.5 g/dL (6.6-8.7)
[2021-03-10] MEDS: budesonide 0.5 mg/2 mL Neb INHALATION ×2 (08:32→21:13)
[2021-03-10] MEDS: ipratropium-albuterol 3 mL Neb INHALATION ×3 (08:32→21:13)
[2021-03-10 09:39] LABS: Creatine Phosphokinase 1646 U/L (26-192)
[2021-03-10] MEDS: cefepime 2,000 MG in sodium chloride 0.9% (plus) 50 ML 100 MG IV (14:18)
--- NOTE | 2021-03-10 15:18 | CTR_ITS ---
PROCEDURE INFORMATION: Exam: CTA Chest With Contrast Exam date and time: 03/10/2021 3:18 PM Age: 50 years old Clinical indication: Shortness of breath; Patient HX: Covid+ PT C/O worsening SOB; Additional info: Shortness of breath, covid TECHNIQUE: Imaging protocol: Computed tomographic angiography of the chest with contrast. 3D rendering (Not supervised by radiologist): MIP and/or 3D reconstructed images were created by the technologist. Radiation optimization: All CT scans at this facility use at least one of these dose optimization techniques: automated exposure control; mA and/or kV adjustment per patient size (includes targeted exams where dose is matched to clinical indication); or iterative reconstruction. Contrast material: OMNI 350; Contrast volume: 77 ml; Contrast route: INTRAVENOUS (IV); COMPARISON: CT angio chest PE protcl [id number] 03/07/2021 1:30 PM RADIATION DOSE METRICS: Total DLP (mGy-cm): 559.48 FINDINGS: Pulmonary arteries: Small nonocclusive segmental pulmonary artery level pulmonary emboli are identified in the right upper lobe and the right lower lobe primarily. No significant dilation of the main pulmonary artery. For example, there is a linear nonocclusive thrombus within a right upper lobe posterior segmental artery on axial series 2, image [id number]. Aorta: Unremarkable. No aortic aneurysm. No aortic dissection. Lungs: Scattered widely distributed ground-glass lesions involving substantial portion of the lung parenchyma. Small intervening areas of unremarkable parenchyma. Negative for endobronchial lesion. No fibrosis. No bronchiectasis. Pleural spaces: Unremarkable. No pneumothorax. No pleural effusion. Heart: No significant dilation of the cardiac chambers. Negative for pericardial effusion. RV/LV ratio is unremarkable, less than 0.9. Mediastinal space: No thoracic esophageal wall thickening. Lymph nodes: Unremarkable. No enlarged lymph nodes. Bones/joints: Unremarkable. No acute fracture. Soft tissues: Unremarkable. CT/CT angio chest PE protcl [id number] IMPRESSION: 1. Positive for small volume pulmonary embolism. 2. There is no convincing CT angiogram evidence of acute significant right heart strain. 3. Widespread predominantly ground-glass airspace disease significantly worse than prior. 4. Commonly reported imaging features of COVID-19 pneumonia are present. Other processes such as influenza pneumonia and organizing pneumonia, as can be seen with drug toxicity and connective tissue disease, can cause a similar imaging pattern. (Reference: William) REFERENCES: William Rawls, et al., Radiological Society of [place] Expert Consensus Statement on Reporting Chest CT Findings Related to COVID-19. Endorsed by the Society of Thoracic Radiology, the [place] [employer], and RSNA. Published September 22, 2019. Radiation Dose CTDIVOL = (mGy): DLP = 559.48 (mGy-cm)
--- NOTE | 2021-03-10 15:18 | USCV_ITS ---
[facility] Age: 50 Gender: F : 1970 Exam Date: 03/10/2021 17:02 Ordering Phys: Marquez Brooks MD Technologist: Exam Location: [facility] [place] Indication: SOB BP: 160 / 71 HR: 85 Rhythm: Sinus Technical Quality: Very technically difficult study MEASUREMENTS (Male / Female) Normal Values 2D ECHO LV Diastolic Diameter PLAX 4.2 cm 4.2 - 5.9 / 3.9 - 5.3 cm LV Systolic Diameter PLAX 3.3 cm LV Chamber Size 4.9 cm IVS Diastolic Thickness 1.2 cm 0.6 - 1.0 / 0.6 - 0.9 cm IVS Systolic Thickness 1.4 cm LVPW Diastolic Thickness 1.1 cm 0.6 - 1.0 / 0.6 - 0.9 cm LVPW Systolic Thickness 1.6 cm RV Chamber Size 2.2 cm LVOT Diameter 2.0 cm LV Ejection Fraction 2D Teich 44.3 % LA Diameter 3.0 cm LA Width 2.9 cm LA Height 4.9 cm RA Width 2.3 cm RA Height 3.8 cm Aorta at Sinotubular Diameter 3.1 cm M-MODE Aortic Annulus Diameter 3.6 cm LA Ao Ratio MM 1.0 MV E Point Septal Separation 0.3 cm DOPPLER AV Peak Velocity 123.0 cm/s LVOT Peak Velocity 90.0 cm/s AV Area Cont Eq vti 2.3 cm squared AV Area Cont Eq pk 2.3 cm squared MV Area PHT 3.6 cm squared Mitral E to A Ratio 0.9 MV E' Velocity 40.0 cm/s Mitral E to MV E' Ratio 9.7 Mitral E to LV E' Lateral Ratio 8.6 Mitral E to LV E' Septal Ratio 11.4 TV Peak E Velocity 53.0 cm/s FINDINGS Left Ventricle Normal left ventricular cavity size. Normal left ventricular systolic function. Left ventricular ejection fraction is estimated at 55 %. Although no diagnostic regional wall motion abnormality could be identified, this possibility cannot be completely excluded based on this study. Abnormal diastolic function. Right Ventricle Normal right ventricular size and systolic function. RVSP could not be calculated due to incomplete tricuspid regurgitation velocity profile. Right Atrium Right atrium not well visualized. Left Atrium Left atrium not well visualized. Probably normal left atrial size. Mitral Valve Structurally normal mitral valve. No mitral valve stenosis. Trace mitral valve regurgitation. Aortic Valve Aortic valve not well visualized. No aortic valve stenosis. No aortic valve regurgitation. Tricuspid Valve Tricuspid valve not well visualized. Pulmonic Valve Pulmonic valve not well visualized. Pericardium No pericardial effusion. Aorta Normal size aortic root. CONCLUSIONS 1. This is a technically difficult study. 2. Normal left ventricular cavity size. Normal left ventricular systolic function. Left ventricular ejection fraction is estimated at 55 %. Although no diagnostic regional wall motion abnormality could be identified, this possibility cannot be completely excluded based on this study. Abnormal diastolic function. 3. No gross valvular abnormality on this study. 4. No prior similar studies to compare. Chantal Griffin MD (Electronically Signed) Final Date: 11 March 2021 09:08 S
--- NOTE | 2021-03-10 15:37 | USR_ITS ---
PROCEDURE INFORMATION: Exam: US Retroperitoneal; Complete; Kidneys and Bladder Exam date and time: 03/10/2021 3:37 PM Age: 50 years old Clinical indication: Condition or disease; Other: History of kidney stone; Additional info: HX of kidney stone TECHNIQUE: Imaging protocol: Real-time ultrasound of the retroperitoneum with image documentation. Complete exam focused on the kidneys and bladder. COMPARISON: CT abdomen pelvis w con* [id number] 11/11/2020 9:52 AM FINDINGS: Right kidney: The right renal parenchyma is moderately atrophic. There is no hydronephrosis. No perirenal fluid. There is possibly a small echogenic lower pole nonobstructing stone measuring 6 mm. Left kidney: The left renal parenchyma is moderately atrophic. There is no hydronephrosis. There is a nonobstructing lower pole stone measuring 6 mm. Urinary bladder: The bladder was decompressed and not further assessed. US/US renal BI* [id number] IMPRESSION: 1. Negative for renal obstruction. 2. Possibly bilateral nonobstructing kidney stones.
[2021-03-10] MEDS: vancomycin 1,500 MG/300 ML PIGGYBACK 200 MG IV (16:00)
[2021-03-10] MEDS: ascorbic acid 500 mg Tablet PO (16:56)
--- NOTE | 2021-03-10 18:43 | PC.RESP ---
Therapist called to check on patient. patient stated that she was having trouble breathing. Therapist had patient on settings of 45L and 80% on heated high flow. Therapist got to room and noticed that settings were changed on Heated High Flow. Nurse had changed settings to 45L and 90% without notifying therapist.
[2021-03-10 20:24] LABS: Glucose Point of Care 185 mg/dL (70-110)
[2021-03-10] MEDS: iohexol 350 mg/mL 100 mL Btl IV (20:43)
[2021-03-10] MEDS: enoxaparin 100 mg/mL Syringe 140 MG SUBCUT (21:51)
[2021-03-11] VITALS (30 sets, daily range): BP systolic 149–181; BP diastolic 102–122; PULSE 63–98; RESP 16–29; TEMP 36.5–36.7; O2SAT 84–98
[2021-03-11] MEDS: sodium chloride 0.9% 1,000 ML 50 ML IV (01:02)
[2021-03-11] MEDS: cefepime 2,000 MG in sodium chloride 0.9% (plus) 50 ML 100 MG IV ×2 (01:02→13:53)
[2021-03-11] MEDS: vancomycin 1,500 MG/300 ML PIGGYBACK 200 MG IV ×2 (02:36→15:22)
[2021-03-11] MEDS: ipratropium-albuterol 3 mL Neb INHALATION ×4 (03:16→20:36)
[2021-03-11 03:48] LABS: ABG PCO2 43.1 mmHg (35-45); ABG PH Result 7.36 (7.35-7.45); Arterial Blood Gas Hematocrit 38.5 % (37-47); Base Excess ABG -1.1 mmol/L (-2.0-2.0); Blood Gas Allen Test Pos; Blood Gas Sample Site Radial, right; Blood Gas Sample Type Arterial; HCO3 ABG 24.5 mmol/L (22-26); Oxygen Device BIPAP; PO2 ABG 88.2 mmHg (80.0-100.0)
[2021-03-11 04:05] LABS: Basophils % 0.2 %; Hematocrit 38.7 % (37.0-47.0); Hemoglobin 12.2 g/dL (11.5-15.3); Lymphocytes % 22.5 %; Mean Corpuscular HGB Conc 31.5 g/dL (30.0-36.0); Mean Corpuscular Volume 91.9 fl (81-99); Mean Platelet Volume 10.8 fL (7.4-10.4); Monocytes # 0.3 10^3/uL (0.2-0.9); Monocytes % 5.5 %; Neutrophils # 3.19 10^3/uL (1.8-7.7); Neutrophils % 69.6 %; Nucleated Red Blood Cells % 0 %; Platelet Count 159 10^3/cmm (130-400); Red Blood Count 4.21 10^6/uL (4.1-5.3); Red Cell Distribution Width 14.1 % (12.1-15.1); White Blood Count 4.6 10^3/uL (4.0-10.0)
[2021-03-11 04:18] LABS: INR 1.11 (0.8-1.2)
[2021-03-11 04:26] LABS: Lactate (Lactic Acid level) 0.9 mmol/L (0.5-2.2)
[2021-03-11 04:34] LABS: D Dimer >= 20.00 ug/mIFEU (0-0.59)
[2021-03-11 04:39] LABS: NT Pro B Type Natriuretic Pept 541 pg/mL (0-125); Procalcitonin 0.07 ng/mL (0-0.5)
[2021-03-11 04:51] LABS: Alanine Aminotransferase 43 U/L (0-33); Albumin Level 3.2 g/dL (3.5-5.2); Alkaline Phosphatase 104 IU/L (35-105); Aspartate Amino Transferase 58 U/L (0-32); Blood Urea Nitrogen 11 mg/dL (6-20); C Reactive Protein 33.3 mg/L (0.0-4.9); Calcium 8.3 mg/dL (8.5-10.5); Carbon Dioxide 19 mmol/L (22-29); Chloride 103 mmol/L (98-107); Globulin 3.2 g/dL (1.3-4.6); Glomerular Filtration Rate 88.6 mL/min (90-130); Glucose 160 mg/dL (65-115); Magnesium 1.9 mg/dL (1.7-2.3); Osmolality Calculated 287 mOsm/kg (285-295); Phosphorus 2.2 mg/dL (2.5-4.5); Sodium 137 mmol/L (136-145); Total Bilirubin 0.2 mg/dL (0.15-1.2); Total Protein 6.4 g/dL (6.6-8.7)
[2021-03-11 04:53] LABS: Slide Review Slide Review Perform
[2021-03-11 05:00] LABS: Anion Gap 19.1 (5-19); Potassium 4.1 mmol/L (3.5-5.1)
[2021-03-11 05:07] LABS: Creatine Phosphokinase 1187 U/L (26-192)
[2021-03-11] MEDS: dexamethasone 4 mg/mL INJ 6 MG IVP (05:17)
[2021-03-11] MEDS: remdesivir 100 MG in sodium chloride 0.9% (100 ml) 100 ML IV (06:14)
--- NOTE | 2021-03-11 07:00 | XRR_ITS ---
PROCEDURE INFORMATION: Exam: XR Chest Exam date and time: 03/11/2021 7:00 AM Age: 50 years old Clinical indication: Dyspnea; Additional info: SOB TECHNIQUE: Imaging protocol: XR of the chest. Views: 1 view. COMPARISON: CR (CHEST, ) 03/08/2021 2:18 AM FINDINGS: Lungs: Extensive bilateral pulmonary infiltrates are present and greater in the right lung. They are more prominent than previous study. Pleural spaces: Unremarkable. No pleural effusion. No pneumothorax. Heart/Mediastinum: Unremarkable. No cardiomegaly. Bones/joints: Unremarkable. XR/XR chest 1V portable [id number] IMPRESSION: Worsening bilateral pulmonary consolidation greater on the right lung.
[2021-03-11] MEDS: benzonatate 100 mg Capsule 200 MG PO ×3 (08:50→23:42)
[2021-03-11] MEDS: guaiFENesin 600 mg Tablet PO ×2 (08:50→17:26)
[2021-03-11] MEDS: cholecalciferol (vitamin D3) 1,000 unit Tablet 1000 UNIT PO (08:50)
[2021-03-11] MEDS: pantoprazole DR 40 mg Tablet PO (08:50)
[2021-03-11] MEDS: zinc gluconate 50 mg Tablet PO (08:50)
[2021-03-11] MEDS: ascorbic acid 500 mg Tablet PO ×2 (08:50→17:27)
[2021-03-11] MEDS: enoxaparin 100 mg/mL Syringe 140 MG SUBCUT ×2 (08:51→20:43)
[2021-03-11] MEDS: budesonide 0.5 mg/2 mL Neb INHALATION ×2 (08:52→20:36)
[2021-03-11] MEDS: acetaminophen-codeine 120-12 mg/5 mL UDC 2.5 ML PO ×3 (09:19→17:25)
[2021-03-11 14:58] LABS: Vancomycin Trough 17.2 ug/mL (10-15)
--- NOTE | 2021-03-11 17:38 | P.PN_ITS ---
Subjective Subjective: Interval history: This is a progress note for 03/10/2021 Patient continues to have worsening shortness of breath, sitting up into a chair, no fevers overnight, she is up to 40%, no chest pain, diarrhea has improved Vitals/I&O/Wt Last Vital Signs Temp 98.1 F 03/11/21 09:32 Pulse 70 03/11/21 16:00 Resp 23 H 03/11/21 16:00 BP 149/113 03/11/21 14:00 Pulse Ox 97 03/11/21 16:00 03/11/21 03/11/21 03/11/21 06:59 14:59 22:59 Intake Total 1800.833 / 3190.833 100 / 100 350 / 450 Output Total 300 / 300 Balance 1800.833 / 3190.833 -200 / -200 350 / 150 Physical Exam Const: COMMON NORMALS: no acute distress and patient oriented x3 HENMT: COMMON NORMALS: normocephalic HEAD & SCALP: normocephalic Resp: COMMON NORMALS: normal respiratory effort, No retractions and No use of accessory muscles AUSCULTATION: diminished lung sounds diffuse Cardio: COMMON NORMALS: regular rate, regular rhythm, S1 normal heart sound present and S2 normal heart sound present RATE: regular rate RHYTHM: regular rhythm HEART SOUNDS: S1 normal heart sound present and S2 normal heart sound present GI: COMMON NORMALS: Normal to inspection, nondistended, normoactive bowel sounds present, Soft to palpation and non-tender PALPATION: Yes Soft to pa lpation Extremity: COMMON NORMALS: no pedal edema Neuro: COMMON NORMALS: patient oriented x3 Psych: COMMON NORMALS: mental status grossly normal Data : 03/11/21 03:40 03/11/21 03:40 A&P Assessment and plan (1) Pneumonia due to 2019-nCoV: Heated high flow, no evidence of respiratory distress, does have wheezing on exam Remdisivir 200mg iv x 1 followed by 100mg iv daily dexamethasone 6mg IVP daily Will give 1 dose of Actemra duoneb q6h, budesonide q12h Broaden antibiotic coverage to vancomycin and cefepime Tessalon Perles, Mucinex, time with codeine for cough For rhabdomyolysis, hold IV hydration Flutter valve/spirometer at bedside trend inflammatory markers including CRP CTA negative for PE Plan for today add Actemra, broaden antibiotic coverage, moved to ICU Status: Acute (2) Transaminitis: Status: Acute (3) Obesity, morbid, BMI 50 or higher: Status: Chronic (4) Essential (primary) hypertension: Status: Chronic (5) Rhabdomyolysis: Status: Acute Attestations Medical Necessity Statement*: Patient requires hospitalization due to pneumonia secondary COVID-19 Coding Level of Care Code Acute Chisel Mortiser Operator for [facility] Fwd Diagnoses Pneumonia due to 2019-nCoV U07.1; J12.82 Transaminitis R74.01 Obesity, morbid, BMI 50 or higher E66.01 Essential (primary) hypertension I10 Rhabdomyolysis M62.82
--- NOTE | 2021-03-11 17:40 | PM.PN ---
Subjective Subjective: Interval history: Patient was seen this morning, she is in the ICU, she sitting up in a chair, on BiPAP, she feels better, is on 80% FiO2, no fevers, no chills, no nausea, no vomiting, she tells me that she only wants chest compressions for about 15 minutes and if there is likelihood of no meaningful recovery to for us to stop, she also wants to avoid intubation as much as we can, but if absolutely necessary she is okay with it, she just worried about her how she is doing, she tells me that she is ready to go if is her time, but she is concerned for her family Vitals/I&O/Wt Last Vital Signs Temp 98.1 F 03/11/21 09:32 Pulse 70 03/11/21 16:00 Resp 23 H 03/11/21 16:00 BP 149/113 03/11/21 14:00 Pulse Ox 97 03/11/21 16:00 03/11/21 03/11/21 03/11/21 06:59 14:59 22:59 Intake Total 1800.833 / 3190.833 100 / 100 350 / 450 Output Total 300 / 300 Balance 1800.833 / 3190.833 -200 / -200 350 / 150 Physical Exam Const: COMMON NORMALS: no acute distress and patient oriented x3 Resp: COMMON NORMALS: normal respiratory effort, No retractions and No use of accessory muscles AUSCULTATION: diminished lung sounds diffuse Cardio: COMMON NORMALS: regular rate, regular rhythm, S1 normal heart sound present and S2 normal heart sound present RATE: regular rate RHYTHM: regular rhythm HEART SOUNDS: S1 normal heart sound present and S2 normal heart sound present GI: COMMON NORMALS: Normal to inspection, nondistended, normoactive bowel sounds present, Soft to palpation and non-tender PALPATION: Yes Soft to palpation Extremity: COMMON NORMALS: no pedal edema Neuro: COMMON NORMALS: patient oriented x3 Psych: COMMON NORMALS: mental status grossly normal Data : 03/11/21 03:40 03/11/21 03:40 A&P Assessment and plan (1) Pneumonia due to 2019-nCoV: Heated high flow, no evidence of respiratory distress, does have wheezing on exam CT angiogram of the chest shows 1. Positive for small volume pulmonary embolism. 2. There is no convincing CT angiogram evidence of acute significant right heart strain. 3. Widespread predominantly ground-glass airspace disease significantly worse than prior. 4. Commonly reported imaging features of COVID-19 pneumonia are present. Other processes such as influenza pneumonia and organizing pneumonia, as can be seen with drug toxicity and connective tissue disease, can cause a similar imaging pattern. (Reference: Thomas) -Cardiac echocardiogram shows . This is a technically difficult study. 2. Normal left ventricular cavity size. Normal left ventricular systolic function. Left ventricular ejection fraction is estimated at 55 %. Although no diagnostic regional wall motion abnormality could be identified, this possibility cannot be completely excluded based on this study. Abnormal diastolic function. 3. No gross valvular abnormality on this study. 4. No prior similar studies to compare. -This likely patient has severe COVID-19 pneumonia, with evidence of acute respiratory distress syndrome, small volume pulmonary embolism -I advised patient that in the next 24 to 48 hours, she is at high risk of intubation, she wants to avoid intubation as much as possible, only if absolutely required, and if she were to have cardiac arrest, she would only like CPR for about 15 minutes, she would not want to be resuscitated or kept on life support if the likelihood of meaningful recovery is unlikely Plan: Remdisivir 200mg iv x 1 followed by 100mg iv daily day 3 dexamethasone 6mg IVP daily day 3 Status post Actemra 03/10/2021 duoneb q6h, budesonide q12h Broaden antibiotic coverage to vancomycin and cefepime for secondary bacterial pneumonia prophylaxis Continue therapeutic Lovenox for pulmonary emboli is some as above Tesgal Strong Mucinex, time with codeine for cough For rhabdomyolysis, hold IV hydration Flutter valve/spirometer at bedside trend inflammatory markers including CRP -Full code -Lovenox for DVT prophylaxis -Protonix for GI prophylaxis Status: Acute (2) Transaminitis: Status: Acute (3) Obesity, morbid, BMI 50 or higher: Status: Chronic (4) Essential (primary) hypertension: Status: Chronic (5) Rhabdomyolysis: Status: Acute (6) ARDS (adult respiratory distress syndrome): Status: Acute (7) Acute respiratory failure with hypoxia: Status: Acute Attestations Medical Necessity Statement*: Patient requires hospitalization for acute respiratory distress syndrome, acute hypoxic respiratory failure, pneumonia secondary COVID-19 Coding Level of Care Code Acute Debt Recovery Officer for [facility] Diagnoses Pneumonia due to 2019-nCoV U07.1; J12.82 Transaminitis R74.01 Obesity, morbid, BMI 50 or higher E66.01 Essential (primary) hypertension I10 Rhabdomyolysis M62.82 ARDS (adult respiratory distress syndrome) J80 Acute respiratory failure with hypoxia J96.01
[2021-03-11] MEDS: hyDRALAzine 20 mg/mL INJ 1 mL 10 MG IVP (20:43)
[2021-03-11] MEDS: ALPRAZolam 0.5 mg Tablet PO (23:42)
[2021-03-12] VITALS (93 sets, daily range): BP systolic 82–169; BP diastolic 55–116; PULSE 62–108; RESP 12–43; TEMP 36.6–37.1; O2SAT 83–97
[2021-03-12] MEDS: cefepime 2,000 MG in sodium chloride 0.9% (plus) 50 ML 100 MG IV ×2 (01:18→13:03)
[2021-03-12] MEDS: vancomycin 1,500 MG/300 ML PIGGYBACK 200 MG IV ×2 (02:48→15:47)
[2021-03-12] MEDS: ipratropium-albuterol 3 mL Neb INHALATION ×4 (02:50→20:21)
[2021-03-12] MEDS: dexamethasone 4 mg/mL INJ 6 MG IVP (04:16)
[2021-03-12] MEDS: remdesivir 100 MG in sodium chloride 0.9% (100 ml) 100 ML IV (05:00)
[2021-03-12 05:02] LABS: Basophils % 0.4 %; Eosinophils % 0.4 %; Hematocrit 41.5 % (37.0-47.0); Hemoglobin 13.2 g/dL (11.5-15.3); Lymphocytes # 1.3 10^3/uL (0.8-4.8); Lymphocytes % 25.6 %; Mean Corpuscular HGB Conc 31.8 g/dL (30.0-36.0); Mean Corpuscular Hemoglobin 28.9 pg (28.0-34.0); Monocytes # 0.3 10^3/uL (0.2-0.9); Monocytes % 5.4 %; Neutrophils # 3.32 10^3/uL (1.8-7.7); Neutrophils % 64.3 %; Nucleated Red Blood Cells % 0 %; Platelet Count 198 10^3/cmm (130-400); Red Blood Count 4.56 10^6/uL (4.1-5.3); Red Cell Distribution Width 13.9 % (12.1-15.1); White Blood Count 5.2 10^3/uL (4.0-10.0)
--- NOTE | 2021-03-12 05:11 | PC.NURSE ---
Shift Note Frequent safety and comfort rounds continue. Orders and/or nursing care completed as indicated. Patient monitored for response to intervention and treatment(s). Education provided includes Xanax uses and side effects. Patient and/or represents verbalize understanding. Will continue to monitor.
[2021-03-12 05:19] LABS: Lactate (Lactic Acid level) 1.1 mmol/L (0.5-2.2)
[2021-03-12 05:22] LABS: INR 1.15 (0.8-1.2)
[2021-03-12 05:32] LABS: D Dimer 9.35 ug/mIFEU (0-0.59)
[2021-03-12 05:34] LABS: NT Pro B Type Natriuretic Pept 575 pg/mL (0-125); Procalcitonin 0.06 ng/mL (0-0.5)
[2021-03-12 05:45] LABS: Alanine Aminotransferase 41 U/L (0-33); Albumin Level 3.2 g/dL (3.5-5.2); Alkaline Phosphatase 109 IU/L (35-105); Aspartate Amino Transferase 45 U/L (0-32); Blood Urea Nitrogen 13 mg/dL (6-20); C Reactive Protein 13.7 mg/L (0.0-4.9); Calcium 8.3 mg/dL (8.5-10.5); Carbon Dioxide 20 mmol/L (22-29); Chloride 103 mmol/L (98-107); Globulin 3.1 g/dL (1.3-4.6); Glomerular Filtration Rate 88.6 mL/min (90-130); Glucose 159 mg/dL (65-115); Magnesium 1.9 mg/dL (1.7-2.3); Osmolality Calculated 287 mOsm/kg (285-295); Phosphorus 2.6 mg/dL (2.5-4.5); Sodium 137 mmol/L (136-145); Total Bilirubin 0.3 mg/dL (0.15-1.2); Total Protein 6.3 g/dL (6.6-8.7)
[2021-03-12 05:54] LABS: ABG PCO2 41.8 mmHg (35-45); ABG PH Result 7.39 (7.35-7.45); Arterial Blood Gas Hematocrit 41.4 % (37-47); Base Excess ABG 0.2 mmol/L (-2.0-2.0); Blood Gas Allen Test Pos; Blood Gas Operator Identificat JB; Blood Gas Sample Site Radial, right; Blood Gas Sample Type Arterial; HCO3 ABG 25.3 mmol/L (22-26); Oxygen Device BIPAP; PO2 ABG 77.4 mmHg (80.0-100.0)
[2021-03-12 06:10] LABS: Creatine Phosphokinase 440 U/L (26-192)
[2021-03-12 06:11] LABS: Anion Gap 18.1 (5-19); Potassium 4.1 mmol/L (3.5-5.1)
[2021-03-12 06:14] LABS: Slide Review Slide Review Perform
[2021-03-12] MEDS: budesonide 0.5 mg/2 mL Neb INHALATION ×2 (08:40→20:21)
--- NOTE | 2021-03-12 08:47 | PC.CHAP ---
Pastoral Care Encounter/Spiritual Assessment Type of Contact [] Declined corporate securities research analyst visit [] Patient/Family/Request visit [] Outpatient visit [] Follow-up visit [] Physician referral [] Code/Alert [x] Routine visit [] Staff referral [] Actively dying [x] Patient sleeping [] Family support [] [] Out of room [] Palliative care [] [] Receiving care in room [] Pre-surgical visit [] Trauma [] Long length of stay [x] ICU visit [x] Other: oxygen mask Relational/Emotional Strength [] Patient feels connected with others/family/visitors/staff [] Distress [] Loneliness/isolation [] Abandonment Spirituality of Patient [] Person of Sofia [] Attends Orthodox of their [place] [] Believes in Prayer [] Reads Bible or Christian materials [] There are Spiritual issues to be addressed Crew Scheduler Interventions [x] Prayer [] Active listening [] Non-anxious presence [] Spiritual/emotional support [] Crisis/trauma care [] Spiritual counseling [] Bereavement support [] Provided bereavement packet [] Provided Bible/devotional materials [] Provided toy/stuffed animal, coloring book to patient or family member [] Provided Communion [] Anointing/[place] [] Salvation [x] Completed spiritual assessment [] Other: Impact on Illness or Injury [] Angry [] Fearful [] Anxious [] Often cries [] Exhaustion [] Unable to work [] Unable to attend anglican [] Unable to walk/stand [] Unable to read [] Unable to drive [] Unable to eat/drink [] Unable to sleep [] Unable to be with family [] Patient intubated [] Other: Summary Time spent with patient
[2021-03-12] MEDS: guaiFENesin 600 mg Tablet PO ×2 (09:34→17:56)
[2021-03-12] MEDS: benzonatate 100 mg Capsule 200 MG PO ×2 (09:34→17:58)
[2021-03-12] MEDS: cholecalciferol (vitamin D3) 1,000 unit Tablet 1000 UNIT PO (09:34)
[2021-03-12] MEDS: zinc gluconate 50 mg Tablet PO (09:34)
[2021-03-12] MEDS: ascorbic acid 500 mg Tablet PO ×2 (09:34→17:56)
[2021-03-12] MEDS: enoxaparin 100 mg/mL Syringe 140 MG SUBCUT ×2 (09:35→23:11)
[2021-03-12] MEDS: pantoprazole DR 40 mg Tablet PO (09:35)
[2021-03-12] MEDS: LORazepam 2 mg/mL INJ 1 mL 1 MG IVP (09:50)
--- NOTE | 2021-03-12 15:15 | PM.PN ---
Subjective Medications: Reviewed: Yes Vitals/I&O/Wt Last Vital Signs Temp 97.8 F 03/12/21 12:30 Pulse 101 H 03/12/21 14:30 Resp 30 H 03/12/21 14:30 BP 114/89 03/12/21 14:30 Pulse Ox 87 L 03/12/21 14:15 03/12/21 03/12/21 03/12/21 06:59 14:59 22:59 Intake Total 510 / 1200 200 / 200 Output Total 1100 / 1400 575 / 575 Balance -590 / -200 -375 / -375 Physical Exam Const: COMMON NORMALS: patient oriented x3 HENMT: COMMON NORMALS: normocephalic and atraumatic HEAD & SCALP: normocephalic and atraumatic Resp: EFFORT & INSPECTION: Yes tachypneic, Yes respiratory distress and Yes Actively coughing OTHER: B/L Basal Crackles Present in both lungs field Cardio: COMMON NORMALS: regular rate, regular rhythm, S1 normal heart sound present, S2 normal heart sound present, No gallops present (Cardio), No murmurs present (Cardio), No rub (Cardio) and Peripheral pulses 2+ throughout RATE: regular rate RHYTHM: regular rhythm HEART SOUNDS: S1 normal heart sound present and S2 normal heart sound present PERIPHERAL PULSES: Peripheral pulses 2+ throughout GI: COMMON NORMALS: Normal to inspection, nondistended, normoactive bowel sounds present, Soft to palpation, non-tender, No hepatosplenomegaly present and no masses AUSCULTATION: Yes normoactive bowel sounds PALPATION: Yes Soft to palpation and Yes No hepatosplenomegaly present RECTAL EXAM: deferred Extremity: COMMON NORMALS: no clubbing, cyanosis or edema and no pedal edema Neuro: COMMON NORMALS: patient oriented x3 Urinary Catheter Management^: Ann: Cath Placed During This Visit: yes Reason for Continuing Indwelling Catheter: Accurate Measurement of Urinary Output in Critically Ill Patients Urinary Catheter Date of Insertion: 03/11/21 Urinary Catheter Time of Insertion: 18:30 Data : 03/12/21 04:20 03/12/21 04:20 A&P Assessment and plan (1) Pneumonia due to 2019-nCoV: Heated high flow, no evidence of respiratory distress, does have wheezing on exam CT angiogram of the chest shows 1. Positive for small volume pulmonary embolism. 2. There is no convincing CT angiogram evidence of acute significant right heart strain. 3. Widespread predominantly ground-glass airspace disease significantly worse than prior. 4. Commonly reported imaging features of COVID-19 pneumonia are present. Other processes such as influenza pneumonia and organizing pneumonia, as can be seen with drug toxicity and connective tissue disease, can cause a similar imaging pattern. (Reference: Thomas) -Cardiac echocardiogram shows . This is a technically difficult study. 2. Normal left ventricular cavity size. Normal left ventricular systolic function. Left ventricular ejection fraction is estimated at 55 %. Although no diagnostic regional wall motion abnormality could be identified, this possibility cannot be completely excluded based on this study. Abnormal diastolic function. 3. No gross valvular abnormality on this study. 4. No prior similar studies to compare. -This likely patient has severe COVID-19 pneumonia, with evidence of acute respiratory distress syndrome, small volume pulmonary embolism -I advised patient that in the next 24 to 48 hours, she is at high risk of intubation, she wants to avoid intubation as much as possible, only if absolutely required, and if she were to have cardiac arrest, she would only like CPR for about 15 minutes, she would not want to be resuscitated or kept on life support if the likelihood of meaningful recovery is unlikely Plan: Remdisivir 200mg iv x 1 followed by 100mg iv daily day 3 dexamethasone 6mg IVP daily day 3 Status post Actemra 03/10/2021 duoneb q6h, budesonide q12h Broaden antibiotic coverage to vancomycin and cefepime for secondary bacterial pneumonia prophylaxis Continue therapeutic Lovenox for pulmonary emboli is some as above Tesgal Strong, Tariex, time with codeine for cough For rhabdomyolysis, hold IV hydration Flutter valve/spirometer at bedside trend inflammatory markers including CRP -Full code -Lovenox for DVT prophylaxis -Protonix for GI prophylaxis Status: Acute (2) Transaminitis: Status: Acute (3) Obesity, morbid, BMI 50 or higher: Status: Chronic (4) Essential (primary) hypertension: Status: Chronic (5) Rhabdomyolysis: Status: Acute (6) ARDS (adult respiratory distress syndrome): Status: Acute (7) Acute respiratory failure with hypoxia: Status: Acute Attestations Medical Necessity Statement*: Patient needs to be in hospital for the management of Pneumonia Coding Level of Care Code Acute Brusher for [facility] Diagnoses Pneumonia due to 2019-nCoV U07.1; J12.82 Transaminitis R74.01 Obesity, morbid, BMI 50 or higher E66.01 Essential (primary) hypertension I10 Rhabdomyolysis M62.82 ARDS (adult respiratory distress syndrome) J80 Acute respiratory failure with hypoxia J96.01
[2021-03-12] MEDS: FUROsemide 10 mg/mL SDV 2mL 20 MG IVP (16:10)
--- NOTE | 2021-03-12 19:08 | PC.NURSE ---
Shift Note Frequent safety and comfort rounds continue. Orders and/or nursing care completed as indicated. Patient monitored for response to intervention and treatment. Uneventful shift. Patient was up the recliner for the entire day shift. No instances of desaturation. Education provided to patient about treatment plans and goals.
[2021-03-12] MEDS: ALPRAZolam 0.5 mg Tablet PO (19:48)
[2021-03-13] VITALS (104 sets, daily range): BP systolic 97–163; BP diastolic 61–118; PULSE 73–108; RESP 14–39; TEMP 36.3–36.8; O2SAT 82–96
[2021-03-13] MEDS: cefepime 2,000 MG in sodium chloride 0.9% (plus) 50 ML 100 MG IV ×2 (01:27→12:36)
[2021-03-13] MEDS: FUROsemide 10 mg/mL SDV 2mL 20 MG IVP ×2 (03:03→15:52)
[2021-03-13] MEDS: vancomycin 1,500 MG/300 ML PIGGYBACK 200 MG IV ×2 (03:03→15:53)
[2021-03-13] MEDS: ipratropium-albuterol 3 mL Neb INHALATION ×4 (03:13→20:05)
[2021-03-13] MEDS: dexamethasone 4 mg/mL INJ 6 MG IVP (03:30)
[2021-03-13] MEDS: acetaminophen-codeine 120-12 mg/5 mL UDC 2.5 ML PO (04:31)
[2021-03-13] MEDS: remdesivir 100 MG in sodium chloride 0.9% (100 ml) 100 ML IV (05:15)
--- NOTE | 2021-03-13 05:20 | PC.NURSE ---
Shift Note Frequent safety and comfort rounds continue. Orders and/or nursing care completed as indicated. Patient monitored for response to intervention and treatment(s). Education provided includes breathing techniques. Patient and/or product sales representative verbalizes understanding. Will continue to monitor.
[2021-03-13 06:06] LABS: Basophils % 0.5 %; Eosinophils % 0.5 %; Hematocrit 40.5 % (37.0-47.0); Hemoglobin 12.8 g/dL (11.5-15.3); Lymphocytes # 1.3 10^3/uL (0.8-4.8); Lymphocytes % 18.1 %; Mean Corpuscular HGB Conc 31.6 g/dL (30.0-36.0); Mean Corpuscular Hemoglobin 29.3 pg (28.0-34.0); Mean Corpuscular Volume 92.7 fl (81-99); Mean Platelet Volume 9.7 fL (7.4-10.4); Monocytes # 0.4 10^3/uL (0.2-0.9); Monocytes % 5.7 %; Neutrophils # 5.01 10^3/uL (1.8-7.7); Neutrophils % 68.6 %; Nucleated Red Blood Cells % 0 %; Platelet Count 316 10^3/cmm (130-400); Red Blood Count 4.37 10^6/uL (4.1-5.3); Red Cell Distribution Width 13.7 % (12.1-15.1); White Blood Count 7.3 10^3/uL (4.0-10.0)
[2021-03-13 06:18] LABS: Alanine Aminotransferase 50 U/L (0-33); Albumin Level 3.7 g/dL (3.5-5.2); Alkaline Phosphatase 105 IU/L (35-105); Anion Gap 17.1 (5-19); Aspartate Amino Transferase 44 U/L (0-32); Blood Urea Nitrogen 24 mg/dL (6-20); C Reactive Protein 7.8 mg/L (0.0-4.9); Calcium 8.3 mg/dL (8.5-10.5); Carbon Dioxide 23 mmol/L (22-29); Chloride 101 mmol/L (98-107); Glomerular Filtration Rate 66.3 mL/min (90-130); Glucose 294 mg/dL (65-115); Magnesium 2.1 mg/dL (1.7-2.3); Osmolality Calculated 299 mOsm/kg (285-295); Phosphorus 2.7 mg/dL (2.5-4.5); Potassium 4.1 mmol/L (3.5-5.1); Sodium 137 mmol/L (136-145); Total Bilirubin 0.5 mg/dL (0.15-1.2); Total Protein 6.7 g/dL (6.6-8.7)
[2021-03-13 06:19] LABS: Lactate (Lactic Acid level) 1.6 mmol/L (0.5-2.2)
[2021-03-13 06:23] LABS: D Dimer 3.91 ug/mIFEU (0-0.59)
[2021-03-13 06:31] LABS: NT Pro B Type Natriuretic Pept 250 pg/mL (0-125); Procalcitonin 0.14 ng/mL (0-0.5)
[2021-03-13 06:36] LABS: Slide Review Slide Review Perform
[2021-03-13 07:03] LABS: Creatine Phosphokinase 367 U/L (26-192)
[2021-03-13] MEDS: zinc gluconate 50 mg Tablet PO (08:50)
[2021-03-13] MEDS: cholecalciferol (vitamin D3) 1,000 unit Tablet 1000 UNIT PO (08:50)
[2021-03-13] MEDS: benzonatate 100 mg Capsule 200 MG PO ×2 (08:50→18:06)
[2021-03-13] MEDS: guaiFENesin 600 mg Tablet PO ×2 (08:50→18:06)
[2021-03-13] MEDS: ascorbic acid 500 mg Tablet PO ×2 (08:50→18:06)
[2021-03-13] MEDS: pantoprazole DR 40 mg Tablet PO (08:50)
[2021-03-13] MEDS: enoxaparin 100 mg/mL Syringe 140 MG SUBCUT ×2 (08:51→21:39)
[2021-03-13] MEDS: budesonide 0.5 mg/2 mL Neb INHALATION ×2 (08:53→20:05)
[2021-03-13 09:20] LABS: Glucose Point of Care 385 mg/dL (70-110)
--- NOTE | 2021-03-13 09:31 | PC.NURSE ---
Patient's blood sugar with morning labs was in the high 200's. NUrse checked agian with breakfast and it is 385. Nurse alerted Dr cordova and received orders to start moderate dose sliding scale insulin. starting now.
[2021-03-13 12:27] LABS: Glucose Point of Care 354 mg/dL (70-110)
[2021-03-13 14:54] LABS: Estmated Average Glucose 163; Hemoglobin A1C 7.3 % (4.0-6.0)
--- NOTE | 2021-03-13 15:07 | PC.RESP ---
RT Shift Note Frequent safety and respiratory rounds continue. Orders completed as indicated. Patient monitored pre and post treatments throughout shift. Patient [Did.] tolerate treatments appropriately. Condition [.DidNotChange]. Patient and/or screening representative educated on respiratory treatment and medications. Patient and/or screening representative [verbalized understanding]. Will continue to monitor patient progress.
--- NOTE | 2021-03-13 15:54 | P.PN_ITS ---
Subjective Subjective: Interval history: Patient was seen and examined this morning, continue to complain of worsening cough.Continue to be on high supplemental oxygen.Good urine output with lasix. Medications: Reviewed: Yes Vitals/I&O/Wt Last Vital Signs Temp 98.3 F 03/13/21 12:45 Pulse 89 03/13/21 15:06 Resp 18 03/13/21 15:06 BP 133/84 03/13/21 15:00 Pulse Ox 94 03/13/21 15:06 03/13/21 03/13/21 03/13/21 06:59 14:59 22:59 Intake Total 350 / 900 50 / 50 Output Total 500 / 1700 450 / 450 Balance -150 / -800 -450 / -450 50 / -400 Physical Exam Const: COMMON NORMALS: patient oriented x3 HENMT: COMMON NORMALS: normocephalic and atraumatic HEAD & SCALP: normocephalic and atraumatic Resp: EFFORT & INSPECTION: Yes tachypneic, Yes respiratory distress and Yes Actively coughing OTHER: B/L Basal Crackles Present in both lungs field Cardio: COMMON NORMALS: regular rate, regular rhythm, S1 normal heart sound present, S2 normal heart sound present, No gallops present (Cardio), No murmurs present (Cardio), No rub (Cardio) and Peripheral pulses 2+ throughout RATE: regular rate RHYTHM: regular rhythm HEART SOUNDS: S1 normal heart sound present and S2 normal heart sound present PERIPHERAL PULSES: Peripheral pulses 2+ throughout GI: COMMON NORMALS: Normal to inspection, nondistended, normoactive bowel sounds present, Soft to palpation, non-tender, No hepatosplenomegaly present and no masses AUSCULTATION: Yes normoactive bowel sounds PALPATION: Yes Soft to palpation and Yes No hepatosplenomegaly present RECTAL EXAM: deferred Extremity: COMMON NORMALS: no clubbing, cyanosis or edema and no pedal edema Neuro: COMMON NORMALS: patient oriented x3 Urinary Catheter Management^: Ann: Cath Placed During This Visit: yes Reason for Continuing Indwelling Catheter: Accurate Measurement of Urinary Output in Critically Ill Patients Urinary Catheter Date of Insertion: 03/11/21 Urinary Catheter Time of Insertion: 18:30 Data : 03/13/21 05:35 03/13/21 05:35 A&P Assessment and plan (1) Pneumonia due to 2019-nCoV: Heated high flow, no evidence of respiratory distress, does have wheezing on exam CT angiogram of the chest shows 1. Positive for small volume pulmonary embolism. 2. There is no convincing CT angiogram evidence of acute significant right heart strain. 3. Widespread predominantly ground-glass airspace disease significantly worse than prior. 4. Commonly reported imaging features of COVID-19 pneumonia are present. Other processes such as influenza pneumonia and organizing pneumonia, as can be seen with drug toxicity and connective tissue disease, can cause a similar imaging pattern. (Reference: Thomas) -Cardiac echocardiogram shows . This is a technically difficult study. 2. Normal left ventricular cavity size. Normal left ventricular systolic function. Left ventricular ejection fraction is estimated at 55 %. Although no diagnostic regional wall motion abnormality could be identified, this possibility cannot be completely excluded based on this study. Abnormal diastolic function. 3. No gross valvular abnormality on this study. 4. No prior similar studies to compare. -This likely patient has severe COVID-19 pneumonia, with evidence of acute respiratory distress syndrome, small volume pulmonary embolism -I advised patient that in the next 24 to 48 hours, she is at high risk of intubation, she wants to avoid intubation as much as possible, only if absolutely required, and if she were to have cardiac arrest, she would only like CPR for about 15 minutes, she would not want to be resuscitated or kept on life support if the likelihood of meaningful recovery is unlikely Plan: Remdisivir 200mg iv x 1 followed by 100mg iv daily day 3 dexamethasone 6mg IVP daily day 3 Status post Actemra 03/10/2021 duoneb q6h, budesonide q12h Broaden antibiotic coverage to vancomycin and cefepime for secondary bacterial pneumonia prophylaxis Continue therapeutic Lovenox for pulmonary emboli is some as above Aniceto Ricardo, time with codeine for cough For rhabdomyolysis, hold IV hydration Flutter valve/spirometer at bedside trend inflammatory markers including CRP -Full code -Lovenox for DVT prophylaxis -Protonix for GI prophylaxis Status: Acute (2) Transaminitis: Status: Acute (3) Obesity, morbid, BMI 50 or higher: Status: Chronic (4) Essential (primary) hypertension: Status: Chronic (5) Rhabdomyolysis: Status: Acute (6) ARDS (adult respiratory distress syndrome): Status: Acute (7) Acute respiratory failure with hypoxia: Status: Acute Attestations Medical Necessity Statement*: Patient needs to be in hospital for the management of PNA Coding Level of Care Code Acute Buckle Stapler for g Fwd Diagnoses Pneumonia due to 2019-nCoV U07.1; J12.82 Transaminitis R74.01 Obesity, morbid, BMI 50 or higher E66.01 Essential (primary) hypertension I10 Rhabdomyolysis M62.82 ARDS (adult respiratory distress syndrome) J80 Acute respiratory failure with hypoxia J96.01
--- NOTE | 2021-03-13 16:43 | PC.NUTR ---
Nutrition note: HgbA1C checked per RD recommendation and found to be 7.3 H. Recommend consideration of consistent carb added to diet. See full RD assessment for further details.
[2021-03-13 18:17] LABS: Glucose Point of Care 267 mg/dL (70-110)
--- NOTE | 2021-03-13 19:22 | PC.NURSE ---
Shift Note Frequent safety and comfort rounds continue. Orders and/or nursing care completed as indicated. Patient monitored for response to intervention and treatment. Uneventful shift. Patient spent day up to the reclining chair. Was able to tranfser to the bedisde commode without desaturating and required minimal asisstance, mostly just managing lines. SHe has had 2 bowel movements and 1550 urine output.
[2021-03-13 20:48] LABS: Glucose Point of Care 214 mg/dL (70-110)
[2021-03-14] VITALS (67 sets, daily range): BP systolic 108–176; BP diastolic 69–118; PULSE 74–110; RESP 14–35; TEMP 36.4–36.7; O2SAT 87–97
[2021-03-14 02:29] LABS: Basophils % 0.3 %; Eosinophils # 0.2 10^3/uL (0.0-0.8); Eosinophils % 1.5 %; Hematocrit 40.8 % (37.0-47.0); Lymphocytes # 1.7 10^3/uL (0.8-4.8); Mean Corpuscular HGB Conc 31.9 g/dL (30.0-36.0); Mean Corpuscular Hemoglobin 29.1 pg (28.0-34.0); Mean Corpuscular Volume 91.3 fl (81-99); Monocytes # 0.5 10^3/uL (0.2-0.9); Monocytes % 5.5 %; Neutrophils # 6.84 10^3/uL (1.8-7.7); Neutrophils % 69.3 %; Nucleated Red Blood Cells % 0 %; Platelet Count 372 10^3/cmm (130-400); Red Blood Count 4.47 10^6/uL (4.1-5.3); Red Cell Distribution Width 13.7 % (12.1-15.1); White Blood Count 9.9 10^3/uL (4.0-10.0)
[2021-03-14] MEDS: ipratropium-albuterol 3 mL Neb INHALATION ×4 (02:35→20:31)
[2021-03-14 02:47] LABS: Vancomycin Random 28.8 ug/mL (20.0-40.0)
[2021-03-14 02:50] LABS: Alanine Aminotransferase 75 U/L (0-33); Albumin Level 3.6 g/dL (3.5-5.2); Alkaline Phosphatase 106 IU/L (35-105); Anion Gap 17.8 (5-19); Aspartate Amino Transferase 69 U/L (0-32); Blood Urea Nitrogen 24 mg/dL (6-20); Calcium 8.9 mg/dL (8.5-10.5); Carbon Dioxide 21 mmol/L (22-29); Chloride 104 mmol/L (98-107); Globulin 2.8 g/dL (1.3-4.6); Glomerular Filtration Rate 75.9 mL/min (90-130); Glucose 130 mg/dL (65-115); Osmolality Calculated 294 mOsm/kg (285-295); Potassium 3.8 mmol/L (3.5-5.1); Slide Review Slide Review Perform; Sodium 139 mmol/L (136-145); Total Bilirubin 0.4 mg/dL (0.15-1.2); Total Protein 6.4 g/dL (6.6-8.7)
[2021-03-14] MEDS: FUROsemide 10 mg/mL SDV 2mL 20 MG IVP ×2 (03:06→16:30)
[2021-03-14] MEDS: vancomycin 1,500 MG/300 ML PIGGYBACK 200 MG IV (03:07)
[2021-03-14] MEDS: dexamethasone 4 mg/mL INJ 6 MG IVP (04:21)
--- NOTE | 2021-03-14 05:48 | PC.NURSE ---
Shift Note Frequent safety and comfort rounds continue. Orders and/or nursing care completed as indicated. Patient monitored for response to intervention and treatment(s). Education provided includes effective breathing pattern. Patient and/or tax compliance representative Verbalizes understanding. Will continue to monitor.
[2021-03-14] MEDS: budesonide 0.5 mg/2 mL Neb INHALATION ×2 (08:01→20:31)
[2021-03-14] MEDS: cholecalciferol (vitamin D3) 1,000 unit Tablet 1000 UNIT PO (08:37)
[2021-03-14] MEDS: pantoprazole DR 40 mg Tablet PO (08:37)
[2021-03-14] MEDS: ascorbic acid 500 mg Tablet PO ×2 (08:37→17:36)
[2021-03-14] MEDS: guaiFENesin 600 mg Tablet PO ×3 (08:37→17:36)
[2021-03-14] MEDS: benzonatate 100 mg Capsule 200 MG PO ×3 (08:37→17:38)
[2021-03-14] MEDS: zinc gluconate 50 mg Tablet PO (08:37)
[2021-03-14] MEDS: enoxaparin 100 mg/mL Syringe 140 MG SUBCUT ×2 (08:37→20:36)
[2021-03-14 08:59] LABS: Glucose Point of Care 321 mg/dL (70-110)
--- NOTE | 2021-03-14 09:11 | PC.CHAP ---
Pastoral Care Encounter/Spiritual Assessment Type of Contact [] Declined cook helper fruit visit [] Patient/Family/Request visit [] Outpatient visit [] Follow-up visit [] Physician referral [] Code/Alert [x] Routine visit [] Staff referral [] Actively dying [] Patient sleeping [] Family support [] [] Out of room [] Palliative care [] [] Receiving care in room [] Pre-surgical visit [] Trauma [] Long length of stay [x] ICU visit [x] Other: patient acknowledged prayer through door Relational/Emotional Strength [] Patient feels connected with others/family/visitors/staff [] Distress [] Loneliness/isolation [] Abandonment Spirituality of Patient [] Person of Sofia [] Attends Jainism of their Sofia [] Believes in Prayer [] Reads Bible or Faith materials [] There are Spiritual issues to be addressed Emissions Repair Technician Interventions [x] Prayer [] Active listening [] Non-anxious presence [] Spiritual/emotional support [] Crisis/trauma care [] Spiritual counseling [] Bereavement support [] Provided bereavement packet [] Provided Bible/devotional materials [] Provided toy/stuffed animal, coloring book to patient or family member [] Provided Communion [] Anointing/[place] [] Salvation [x] Completed spiritual assessment [] Other: Impact on Illness or Injury [] Angry [] Fearful [] Anxious [] Often cries [] Exhaustion [] Unable to work [] Unable to attend gnosticism [] Unable to walk/stand [] Unable to read [] Unable to drive [] Unable to eat/drink [] Unable to sleep [] Unable to be with family [] Patient intubated [] Other: Summary Time spent with patient
[2021-03-14] MEDS: lanolin oint 7 gm 1 APPLIC TOPICAL (09:38)
[2021-03-14 12:29] LABS: Glucose Point of Care 350 mg/dL (70-110)
[2021-03-14] MEDS: cefepime 2,000 MG in sodium chloride 0.9% (plus) 50 ML 100 MG IV (12:33)
--- NOTE | 2021-03-14 13:07 | PM.PN ---
Subjective Subjective: Interval history: Patient was seen and examined this morning, supplemental oxygen requirement is going down, shortness of breath is slightly improved, feels slightly better today as compared to yesterday, has been sitting in chair for full day today. Still has persistent nagging nonproductive cough. We will discontinue vancomycin today. Medications: Reviewed: Yes Vitals/I&O/Wt Last Vital Signs Temp 97.5 F L 03/14/21 10:30 Pulse 102 H 03/14/21 12:45 Resp 24 H 03/14/21 12:45 BP 135/91 03/14/21 12:45 Pulse Ox 94 03/14/21 12:45 03/13/21 03/14/21 03/14/21 22:59 06:59 14:59 Intake Total 450 / 450 700 / 1150 100 / 100 Output Total 1100 / 1550 1000 / 2550 200 / 200 Balance -650 / -1100 -300 / -1400 -100 / -100 Physical Exam Const: COMMON NORMALS: patient oriented x3 HENMT: COMMON NORMALS: normocephalic and atraumatic HEAD & SCALP: normocephalic and atraumatic Resp: EFFORT & INSPECTION: Yes tachypneic, Yes respiratory distress and Yes Actively coughing OTHER: B/L Basal Crackles Present in both lungs field Cardio: COMMON NORMALS: regular rate, regular rhythm, S1 normal heart sound present, S2 normal heart sound present, No gallops present (Cardio), No murmurs present (Cardio), No rub (Cardio) and Peripheral pulses 2+ throughout RATE: regular rate RHYTHM: regular rhythm HEART SOUNDS: S1 normal heart sound present and S2 normal heart sound present PERIPHERAL PULSES: Peripheral pulses 2+ throughout GI: COMMON NORMALS: Normal to inspection, nondistended, normoactive bowel sounds present, Soft to palpation, non-tender, No hepatosplenomegaly present and no masses AUSCULTATION: Yes normoactive bowel sounds PALPATION: Yes Soft to palpation and Yes No hepatosplenomegaly present RECTAL EXAM: deferred Extremity: COMMON NORMALS: no clubbing, cyanosis or edema and no pedal edema Neuro: COMMON NORMALS: patient oriented x3 Urinary Catheter Management^: Ann: Cath Placed During This Visit: yes Reason for Continuing Indwelling Catheter: Accurate Measurement of Urinary Output in Critically Ill Patients Urinary Catheter Date of Insertion: 03/11/21 Urinary Catheter Time of Insertion: 18:30 Data : 03/14/21 01:57 03/14/21 01:57 A&P Assessment and plan (1) Pneumonia due to 2019-nCoV: Heated high flow, no evidence of respiratory distress, does have wheezing on exam CT angiogram of the chest shows 1. Positive for small volume pulmonary embolism. 2. There is no convincing CT angiogram evidence of acute significant right heart strain. 3. Widespread predominantly ground-glass airspace disease significantly worse than prior. 4. Commonly reported imaging features of COVID-19 pneumonia are present. Other processes such as influenza pneumonia and organizing pneumonia, as can be seen with drug toxicity and connective tissue disease, can cause a similar imaging pattern. (Reference: Thomas) -Cardiac echocardiogram shows . This is a technically difficult study. 2. Normal left ventricular cavity size. Normal left ventricular systolic function. Left ventricular ejection fraction is estimated at 55 %. Although no diagnostic regional wall motion abnormality could be identified, this possibility cannot be completely excluded based on this study. Abnormal diastolic function. 3. No gross valvular abnormality on this study. 4. No prior similar studies to compare. -This likely patient has severe COVID-19 pneumonia, with evidence of acute respiratory distress syndrome, small volume pulmonary embolism -I advised patient that in the next 24 to 48 hours, she is at high risk of intubation, she wants to avoid intubation as much as possible, only if absolutely required, and if she were to have cardiac arrest, she would only like CPR for about 15 minutes, she would not want to be resuscitated or kept on life support if the likelihood of meaningful recovery is unlikely Plan: Remdisivir 200mg iv x 1 followed by 100mg iv daily day 3 dexamethasone 6mg IVP daily day 3 Status post Actemra 03/10/2021 duoneb q6h, budesonide q12h Broaden antibiotic coverage to vancomycin and cefepime for secondary bacterial pneumonia prophylaxis Continue therapeutic Lovenox for pulmonary emboli is some as above Aniceto Ricardo, time with codeine for cough For rhabdomyolysis, hold IV hydration Flutter valve/spirometer at bedside trend inflammatory markers including CRP -Full code -Lovenox for DVT prophylaxis -Protonix for GI prophylaxis Status: Acute (2) Transaminitis: Status: Acute (3) Obesity, morbid, BMI 50 or higher: Status: Chronic (4) Essential (primary) hypertension: Status: Chronic (5) Rhabdomyolysis: Status: Acute (6) ARDS (adult respiratory distress syndrome): Status: Acute (7) Acute respiratory failure with hypoxia: Status: Acute Attestations Medical Necessity Statement*: Patient is to the hospital for management of Covid pneumonia Coding Level of Care Code Acute Lean Manufacturing Engineer for [facility] Fwd Exam Detailed Diagnoses Pneumonia due to 2019-nCoV U07.1; J12.82 Transaminitis R74.01 Obesity, morbid, BMI 50 or higher E66.01 Essential (primary) hypertension I10 Rhabdomyolysis M62.82 ARDS (adult respiratory distress syndrome) J80 Acute respiratory failure with hypoxia J96.01
[2021-03-14 16:43] LABS: Glucose Point of Care 234 mg/dL (70-110)
--- NOTE | 2021-03-14 19:08 | PC.NURSE ---
Shift Note Frequent safety and comfort rounds continue. Orders and/or nursing care completed as indicated. Patient monitored for response to intervention and treatment. Overall uneventful shift patient rested in the reclining chair throughout the day. Oxygen requirements came down form 35L/65% to 35L/55%. Patient appears more energetic and optimistic than yesterday. WHen moving from chair to bedside commode patient retains and o2 saturation of 89%+, has an easier time doing so compared to yesterday, and has an almost immeadiate recovery back up to 93%.
[2021-03-14] MEDS: ALPRAZolam 0.5 mg Tablet PO (20:36)
[2021-03-14 20:43] LABS: Glucose Point of Care 170 mg/dL (70-110)
[2021-03-15] VITALS (30 sets, daily range): BP systolic 107–148; BP diastolic 67–101; PULSE 76–109; RESP 15–32; TEMP 36.7; O2SAT 88–94
[2021-03-15] MEDS: cefepime 2,000 MG in sodium chloride 0.9% (plus) 50 ML 100 MG IV ×2 (01:10→12:46)
[2021-03-15] MEDS: benzonatate 100 mg Capsule 200 MG PO ×5 (01:27→21:49)
[2021-03-15] MEDS: acetaminophen 325 mg Tablet 650 MG PO (02:34)
[2021-03-15] MEDS: FUROsemide 10 mg/mL SDV 2mL 20 MG IVP ×3 (03:36→21:48)
[2021-03-15] MEDS: dexamethasone 4 mg/mL INJ 6 MG IVP (03:36)
[2021-03-15] MEDS: acetaminophen-codeine 120-12 mg/5 mL UDC PO ×3 (03:45→21:48)
[2021-03-15 04:10] LABS: Basophils # 0.1 10^3/uL (0.0-0.1); Basophils % 0.4 %; Eosinophils # 0.4 10^3/uL (0.0-0.8); Eosinophils % 3.3 %; Hematocrit 40.2 % (37.0-47.0); Hemoglobin 12.6 g/dL (11.5-15.3); Lymphocytes # 1.9 10^3/uL (0.8-4.8); Lymphocytes % 16.7 %; Mean Corpuscular HGB Conc 31.3 g/dL (30.0-36.0); Mean Corpuscular Hemoglobin 29.6 pg (28.0-34.0); Mean Corpuscular Volume 94.6 fl (81-99); Mean Platelet Volume 10.1 fL (7.4-10.4); Monocytes # 0.5 10^3/uL (0.2-0.9); Monocytes % 4.2 %; Neutrophils # 7.87 10^3/uL (1.8-7.7); Neutrophils % 68.1 %; Nucleated Red Blood Cells % 0 %; Platelet Count 382 10^3/cmm (130-400); Red Blood Count 4.25 10^6/uL (4.1-5.3); White Blood Count 11.6 10^3/uL (4.0-10.0)
[2021-03-15 04:28] LABS: Alanine Aminotransferase 116 U/L (0-33); Albumin Level 3.4 g/dL (3.5-5.2); Alkaline Phosphatase 99 IU/L (35-105); Anion Gap 16.8 (5-19); Aspartate Amino Transferase 72 U/L (0-32); Blood Urea Nitrogen 34 mg/dL (6-20); Calcium 8.6 mg/dL (8.5-10.5); Carbon Dioxide 21 mmol/L (22-29); Chloride 106 mmol/L (98-107); Creatine Phosphokinase 283 U/L (26-192); Globulin 2.9 g/dL (1.3-4.6); Glomerular Filtration Rate 66.3 mL/min (90-130); Glucose 149 mg/dL (65-115); Osmolality Calculated 300 mOsm/kg (285-295); Potassium 3.8 mmol/L (3.5-5.1); Sodium 140 mmol/L (136-145); Total Bilirubin 0.4 mg/dL (0.15-1.2); Total Protein 6.3 g/dL (6.6-8.7)
[2021-03-15 04:47] LABS: Slide Review Slide Review Perform
[2021-03-15 07:40] LABS: Glucose Point of Care 236 mg/dL (70-110)
[2021-03-15] MEDS: budesonide 0.5 mg/2 mL Neb INHALATION ×2 (08:05→20:38)
[2021-03-15] MEDS: ipratropium-albuterol 3 mL Neb INHALATION ×3 (08:05→20:38)
[2021-03-15] MEDS: ascorbic acid 500 mg Tablet PO ×2 (08:35→18:46)
[2021-03-15] MEDS: pantoprazole DR 40 mg Tablet PO (08:35)
[2021-03-15] MEDS: zinc gluconate 50 mg Tablet PO (08:35)
[2021-03-15] MEDS: enoxaparin 100 mg/mL Syringe 140 MG SUBCUT ×2 (08:35→21:49)
[2021-03-15] MEDS: guaiFENesin 600 mg Tablet PO ×2 (08:35→18:46)
[2021-03-15] MEDS: cholecalciferol (vitamin D3) 1,000 unit Tablet 1000 UNIT PO (08:35)
[2021-03-15 12:07] LABS: Glucose Point of Care 337 mg/dL (70-110)
--- NOTE | 2021-03-15 14:58 | PM.PN ---
Subjective Subjective: Interval history: Patient was seen and examined this morning, supplemental oxygen requirement is going down, shortness of breath has improved,Persistent nagging nonproductive cough. Medications: Reviewed: Yes Vitals/I&O/Wt Last Vital Signs Temp 98.0 F 03/15/21 13:00 Pulse 101 H 03/15/21 14:12 Resp 20 H 03/15/21 14:10 BP 110/77 03/15/21 13:00 Pulse Ox 93 03/15/21 14:10 03/14/21 03/15/21 03/15/21 22:59 06:59 14:59 Intake Total 850 / 950 550 / 1500 240 / 240 Output Total 375 / 575 750 / 1325 Balance 475 / 375 -200 / 175 240 / 240 Physical Exam Const: COMMON NORMALS: patient oriented x3 HENMT: COMMON NORMALS: normocephalic and atraumatic HEAD & SCALP: normocephalic and atraumatic Resp: EFFORT & INSPECTION: Yes tachypneic, Yes respiratory distress and Yes Actively coughing OTHER: B/L Basal Crackles Present in both lungs field is improving Cardio: COMMON NORMALS: regular rate, regular rhythm, S1 normal heart sound present, S2 normal heart sound present, No gallops present (Cardio), No murmurs present (Cardio), No rub (Cardio) and Peripheral pulses 2+ throughout RATE: regular rate RHYTHM: regular rhythm HEART SOUNDS: S1 normal heart sound present and S2 normal heart sound present PERIPHERAL PULSES: Peripheral pulses 2+ throughout GI: COMMON NORMALS: Normal to inspection, nondistended, normoactive bowel sounds present, Soft to palpation, non-tender, No hepatosplenomegaly present and no masses AUSCULTATION: Yes normoactive bowel sounds PALPATION: Yes Soft to palpation and Yes No hepatosplenomegaly present RECTAL EXAM: deferred Extremity: COMMON NORMALS: no clubbing, cyanosis or edema and no pedal edema Neuro: COMMON NORMALS: patient oriented x3 Urinary Catheter Management^: Ann: Cath Placed During This Visit: yes Reason for Continuing Indwelling Catheter: Accurate Measurement of Urinary Output in Critically Ill Patients Urinary Catheter Date of Insertion: 03/11/21 Urinary Catheter Time of Insertion: 18:30 Data : 03/15/21 03:24 03/15/21 03:24 Micro: Microbiology 03/14/21 12:45 MRSA Culture - Final Nose A&P Assessment and plan (1) Pneumonia due to 2019-nCoV: Heated high flow, no evidence of respiratory distress, does have wheezing on exam CT angiogram of the chest shows 1. Positive for small volume pulmonary embolism. 2. There is no convincing CT angiogram evidence of acute significant right heart strain. 3. Widespread predominantly ground-glass airspace disease significantly worse than prior. 4. Commonly reported imaging features of COVID-19 pneumonia are present. Other processes such as influenza pneumonia and organizing pneumonia, as can be seen with drug toxicity and connective tissue disease, can cause a similar imaging pattern. (Reference: Thomas) -Cardiac echocardiogram shows . This is a technically difficult study. 2. Normal left ventricular cavity size. Normal left ventricular systolic function. Left ventricular ejection fraction is estimated at 55 %. Although no diagnostic regional wall motion abnormality could be identified, this possibility cannot be completely excluded based on this study. Abnormal diastolic function. 3. No gross valvular abnormality on this study. 4. No prior similar studies to compare. -This likely patient has severe COVID-19 pneumonia, with evidence of acute respiratory distress syndrome, small volume pulmonary embolism -I advised patient that in the next 24 to 48 hours, she is at high risk of intubation, she wants to avoid intubation as much as possible, only if absolutely required, and if she were to have cardiac arrest, she would only like CPR for about 15 minutes, she would not want to be resuscitated or kept on life support if the likelihood of meaningful recovery is unlikely Plan: Remdisivir 200mg iv x 1 followed by 100mg iv daily day 3 dexamethasone 6mg IVP daily day 3 Status post Actemra 03/10/2021 duoneb q6h, budesonide q12h Broaden antibiotic coverage to vancomycin and cefepime for secondary bacterial pneumonia prophylaxis Continue therapeutic Lovenox for pulmonary emboli is some as above Aniceto Ricardo, time with codeine for cough For rhabdomyolysis, hold IV hydration Flutter valve/spirometer at bedside trend inflammatory markers including CRP -Full code -Lovenox for DVT prophylaxis -Protonix for GI prophylaxis Status: Acute (2) Transaminitis: Status: Inactive (3) Obesity, morbid, BMI 50 or higher: Status: Chronic (4) Essential (primary) hypertension: Status: Chronic (5) Rhabdomyolysis: Status: Acute (6) ARDS (adult respiratory distress syndrome): Status: Acute (7) Acute respiratory failure with hypoxia: Status: Acute Attestations Medical Necessity Statement*: Patient is to be in hospital for management of Covid pneumonia Coding Level of Care Code Acute Freedom Of Information Officer for g Fwd Exam Detailed Diagnoses Pneumonia due to 2019-nCoV U07.1; J12.82 Transaminitis R74.01 Obesity, morbid, BMI 50 or higher E66.01 Essential (primary) hypertension I10 Rhabdomyolysis M62.82 ARDS (adult respiratory distress syndrome) J80 Acute respiratory failure with hypoxia J96.01
[2021-03-15] MEDS: oxyCODONE-APAP 5-325 mg Tablet PO (16:08)
[2021-03-15] MEDS: guaiFENesin 100 mg/5 mL UDC 10 mL 400 MG PO ×3 (16:09→22:01)
[2021-03-15 17:37] LABS: Glucose Point of Care 148 mg/dL (70-110)
[2021-03-15] MEDS: ALPRAZolam 0.5 mg Tablet PO (21:48)
[2021-03-15 22:00] LABS: Glucose Point of Care 141 mg/dL (70-110)
--- NOTE | 2021-03-15 22:00 | PC.NURSE ---
Shift report given to
[2021-03-16] VITALS (33 sets, daily range): BP systolic 95–142; BP diastolic 56–104; PULSE 74–107; RESP 14–31; TEMP 36.7–36.9; O2SAT 84–97
[2021-03-16] MEDS: guaiFENesin 100 mg/5 mL UDC 10 mL 400 MG PO ×4 (03:38→21:25)
[2021-03-16] MEDS: cefepime 2,000 MG in sodium chloride 0.9% (plus) 50 ML 100 MG IV ×2 (03:38→13:14)
[2021-03-16] MEDS: FUROsemide 10 mg/mL SDV 2mL 20 MG IVP ×2 (03:40→15:53)
[2021-03-16] MEDS: dexamethasone 4 mg/mL INJ 6 MG IVP (03:41)
[2021-03-16] MEDS: acetaminophen-codeine 120-12 mg/5 mL UDC PO ×2 (03:59→18:43)
[2021-03-16 04:25] LABS: Basophils # 0.1 10^3/uL (0.0-0.1); Basophils % 0.4 %; Eosinophils # 0.4 10^3/uL (0.0-0.8); Eosinophils % 3.6 %; Hematocrit 39.5 % (37.0-47.0); Hemoglobin 12.7 g/dL (11.5-15.3); Lymphocytes # 1.9 10^3/uL (0.8-4.8); Lymphocytes % 15.2 %; Mean Corpuscular HGB Conc 32.2 g/dL (30.0-36.0); Mean Corpuscular Hemoglobin 29.5 pg (28.0-34.0); Mean Corpuscular Volume 91.9 fl (81-99); Mean Platelet Volume 9.7 fL (7.4-10.4); Monocytes # 0.6 10^3/uL (0.2-0.9); Monocytes % 4.7 %; Neutrophils # 8.44 10^3/uL (1.8-7.7); Neutrophils % 68.8 %; Nucleated Red Blood Cells % 0 %; Platelet Count 333 10^3/cmm (130-400); Red Cell Distribution Width 14.2 % (12.1-15.1); White Blood Count 12.3 10^3/uL (4.0-10.0)
[2021-03-16 04:47] LABS: Slide Review Slide Review Perform
[2021-03-16 05:03] LABS: Alanine Aminotransferase 98 U/L (0-33); Albumin Level 3.8 g/dL (3.5-5.2); Alkaline Phosphatase 103 IU/L (35-105); Anion Gap 16.1 (5-19); Aspartate Amino Transferase 41 U/L (0-32); Blood Urea Nitrogen 32 mg/dL (6-20); Calcium 8.8 mg/dL (8.5-10.5); Carbon Dioxide 23 mmol/L (22-29); Chloride 103 mmol/L (98-107); Creatine Phosphokinase 235 U/L (26-192); Globulin 2.3 g/dL (1.3-4.6); Glomerular Filtration Rate 66.3 mL/min (90-130); Glucose 130 mg/dL (65-115); Osmolality Calculated 295 mOsm/kg (285-295); Potassium 4.1 mmol/L (3.5-5.1); Sodium 138 mmol/L (136-145); Total Bilirubin 0.4 mg/dL (0.15-1.2); Total Protein 6.1 g/dL (6.6-8.7)
[2021-03-16 08:06] LABS: Glucose Point of Care 222 mg/dL (70-110)
[2021-03-16] MEDS: budesonide 0.5 mg/2 mL Neb INHALATION ×2 (08:20→20:22)
[2021-03-16] MEDS: ipratropium-albuterol 3 mL Neb INHALATION ×4 (08:20→20:22)
[2021-03-16] MEDS: benzonatate 100 mg Capsule 200 MG PO ×3 (08:22→20:40)
[2021-03-16] MEDS: guaiFENesin 600 mg Tablet PO ×2 (08:22→18:43)
[2021-03-16] MEDS: ascorbic acid 500 mg Tablet PO ×2 (08:22→18:43)
[2021-03-16] MEDS: pantoprazole DR 40 mg Tablet PO (08:22)
[2021-03-16] MEDS: zinc gluconate 50 mg Tablet PO (08:22)
[2021-03-16] MEDS: cholecalciferol (vitamin D3) 1,000 unit Tablet 1000 UNIT PO (08:22)
[2021-03-16] MEDS: enoxaparin 100 mg/mL Syringe 140 MG SUBCUT (10:15)
[2021-03-16] MEDS: oxyCODONE-APAP 5-325 mg Tablet PO (10:16)
[2021-03-16 11:41] LABS: Glucose Point of Care 277 mg/dL (70-110)
--- NOTE | 2021-03-16 13:27 | PM.PN ---
Subjective Subjective: Interval history: Patient was seen and examined this morning, supplemental oxygen requirement is going down,plan is to switch her to regular Nasal canula,continue to make good urine output with lasix. Has slight hematuria but her H&H has remained stable. Medications: Reviewed: Yes Vitals/I&O/Wt Last Vital Signs Temp 98.4 F 03/16/21 04:00 Pulse 104 H 03/16/21 08:40 Resp 20 H 03/16/21 10:16 BP 125/89 03/16/21 08:00 Pulse Ox 93 03/16/21 10:16 03/15/21 03/16/21 03/16/21 22:59 06:59 14:59 Intake Total 450 / 690 170 / 860 120 / 120 Output Total 850 / 850 1200 / 0 Balance -400 / -160 -1030 / -1190 120 / 120 Physical Exam Const: COMMON NORMALS: patient oriented x3 HENMT: COMMON NORMALS: normocephalic and atraumatic HEAD & SCALP: normocephalic and atraumatic Resp: EFFORT & INSPECTION: Yes tachypneic, Yes respiratory distress and Yes Actively coughing OTHER: B/L Basal Crackles Present in both lungs field is improving Cardio: COMMON NORMALS: regular rate, regular rhythm, S1 normal heart sound present, S2 normal heart sound present, No gallops present (Cardio), No murmurs present (Cardio), No rub (Cardio) and Peripheral pulses 2+ throughout RATE: regular rate RHYTHM: regular rhythm HEART SOUNDS: S1 normal heart sound present and S2 normal heart sound present PERIPHERAL PULSES: Peripheral pulses 2+ throughout GI: COMMON NORMALS: Normal to inspection, nondistended, normoactive bowel sounds present, Soft to palpation, non-tender, No hepatosplenomegaly present and no masses AUSCULTATION: Yes normoactive bowel sounds PALPATION: Yes Soft to palpation and Yes No hepatosplenomegaly present RECTAL EXAM: deferred Extremity: COMMON NORMALS: no clubbing, cyanosis or edema and no pedal edema Neuro: COMMON NORMALS: patient oriented x3 Urinary Catheter Management^: Ann: Cath Placed During This Visit: yes Reason for Continuing Indwelling Catheter: Accurate Measurement of Urinary Output in Critically Ill Patients Urinary Catheter Date of Insertion: 03/11/21 Urinary Catheter Time of Insertion: 18:30 Data : 03/16/21 04:12 03/16/21 04:12 Micro: Microbiology 03/14/21 12:45 MRSA Culture - Final Nose A&P Assessment and plan (1) Pneumonia due to 2019-nCoV: Heated high flow, no evidence of respiratory distress, does have wheezing on exam CT angiogram of the chest shows 1. Positive for small volume pulmonary embolism. 2. There is no convincing CT angiogram evidence of acute significant right heart strain. 3. Widespread predominantly ground-glass airspace disease significantly worse than prior. 4. Commonly reported imaging features of COVID-19 pneumonia are present. Other processes such as influenza pneumonia and organizing pneumonia, as can be seen with drug toxicity and connective tissue disease, can cause a similar imaging pattern. (Reference: Thomas) -Cardiac echocardiogram shows . This is a technically difficult study. 2. Normal left ventricular cavity size. Normal left ventricular systolic function. Left ventricular ejection fraction is estimated at 55 %. Although no diagnostic regional wall motion abnormality could be identified, this possibility cannot be completely excluded based on this study. Abnormal diastolic function. 3. No gross valvular abnormality on this study. 4. No prior similar studies to compare. -This likely patient has severe COVID-19 pneumonia, with evidence of acute respiratory distress syndrome, small volume pulmonary embolism -I advised patient that in the next 24 to 48 hours, she is at high risk of intubation, she wants to avoid intubation as much as possible, only if absolutely required, and if she were to have cardiac arrest, she would only like CPR for about 15 minutes, she would not want to be resuscitated or kept on life support if the likelihood of meaningful recovery is unlikely Plan: Remdisivir 200mg iv x 1 followed by 100mg iv daily day 3 dexamethasone 6mg IVP daily day 3 Status post Actemra 03/10/2021 duoneb q6h, budesonide q12h Broaden antibiotic coverage to vancomycin and cefepime for secondary bacterial pneumonia prophylaxis Continue therapeutic Lovenox for pulmonary emboli is some as above Aniceto Ricardo, time with codeine for cough For rhabdomyolysis, hold IV hydration Flutter valve/spirometer at bedside trend inflammatory markers including CRP -Full code -Lovenox for DVT prophylaxis -Protonix for GI prophylaxis Status: Acute (2) Transaminitis: Status: Inactive (3) Obesity, morbid, BMI 50 or higher: Status: Chronic (4) Essential (primary) hypertension: Status: Chronic (5) Rhabdomyolysis: Status: Acute (6) ARDS (adult respiratory distress syndrome): Status: Acute (7) Acute respiratory failure with hypoxia: Status: Acute Attestations Medical Necessity Statement*: patient needs to be in hospital for the management of PNA Coding Level of Care Code Acute Opticianry Teacher for [facility] Fwd Exam Detailed Diagnoses Pneumonia due to 2019-nCoV U07.1; J12.82 Transaminitis R74.01 Obesity, morbid, BMI 50 or higher E66.01 Essential (primary) hypertension I10 Rhabdomyolysis M62.82 ARDS (adult respiratory distress syndrome) J80 Acute respiratory failure with hypoxia J96.01
[2021-03-16 17:18] LABS: Glucose Point of Care 207 mg/dL (70-110)
[2021-03-16 20:36] LABS: Glucose Point of Care 173 mg/dL (70-110)
[2021-03-16] MEDS: apixaban 5 mg Tablet PO (20:40)
[2021-03-16] MEDS: ALPRAZolam 0.5 mg Tablet PO (20:43)
[2021-03-17] VITALS (27 sets, daily range): BP systolic 90–129; BP diastolic 56–83; PULSE 76–124; RESP 16–25; TEMP 36.4–36.6; O2SAT 82–99
[2021-03-17] MEDS: cefepime 2,000 MG in sodium chloride 0.9% (plus) 50 ML 100 MG IV (01:20)
[2021-03-17] MEDS: guaiFENesin 100 mg/5 mL UDC 10 mL 400 MG PO ×3 (01:20→14:13)
[2021-03-17] MEDS: oxyCODONE-APAP 5-325 mg Tablet PO ×4 (03:34→20:33)
[2021-03-17] MEDS: FUROsemide 10 mg/mL SDV 2mL 20 MG IVP (04:10)
[2021-03-17] MEDS: dexamethasone 4 mg/mL INJ 6 MG IVP (04:11)
[2021-03-17] MEDS: aspirin 81 mg EC Tablet PO (04:11)
[2021-03-17] MEDS: acetaminophen-codeine 120-12 mg/5 mL UDC PO ×2 (06:09→23:55)
[2021-03-17 07:12] LABS: Creatine Phosphokinase 332 U/L (26-192)
--- NOTE | 2021-03-17 08:11 | PC.NURSE ---
Shift Note Frequent safety and comfort rounds continue. Orders and/or nursing care completed as indicated. Patient monitored for response to intervention and treatment(s). Education provided includes covid 19 and oxygen monitoring. 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 Will continue to monitor. Received bed side shift report from off going nurse. Pt's plan of care reviewed. Pt sitting up in chair and watching a movie on her phone. Respirations are even and unlabored. No s/sx of distress noted. Pt is alert and oriented and able to make her own decisions. Pt c/o pleurisy and rates pain an 8/10 and is requesting pain medication at this time. Pt denied any other pains or concerns at this time. Will continue to monitor.
[2021-03-17] MEDS: benzonatate 100 mg Capsule 200 MG PO ×3 (08:33→20:33)
[2021-03-17] MEDS: zinc gluconate 50 mg Tablet PO (08:33)
[2021-03-17] MEDS: cholecalciferol (vitamin D3) 1,000 unit Tablet 1000 UNIT PO (08:33)
[2021-03-17] MEDS: apixaban 5 mg Tablet PO (08:33)
[2021-03-17] MEDS: ascorbic acid 500 mg Tablet PO ×2 (08:34→17:33)
[2021-03-17] MEDS: guaiFENesin 600 mg Tablet PO ×2 (08:34→17:32)
[2021-03-17] MEDS: pantoprazole DR 40 mg Tablet PO ×2 (08:34→21:32)
[2021-03-17] MEDS: ipratropium-albuterol 3 mL Neb INHALATION ×3 (09:30→20:13)
[2021-03-17] MEDS: budesonide 0.5 mg/2 mL Neb INHALATION ×2 (09:30→20:13)
[2021-03-17 09:49] LABS: Glucose Point of Care 265 mg/dL (70-110)
[2021-03-17] MEDS: levofloxacin-dextrose 5 % 750 MG/150 ML PREMIX 100 MG IV (10:05)
[2021-03-17 11:35] LABS: Glucose Point of Care 375 mg/dL (70-110)
--- NOTE | 2021-03-17 11:37 | XRR_ITS ---
PROCEDURE INFORMATION: Exam: XR Chest Exam date and time: 03/17/2021 11:37 AM Age: 50 years old Clinical indication: Cough and dyspnea; Additional info: Pna TECHNIQUE: Imaging protocol: XR of the chest. Views: 1 view. COMPARISON: CR (CHEST, ) 03/11/2021 5:33 AM FINDINGS: Lungs: Low lung volumes are seen. There is interstitial congestion right upper lobe. No consolidation. There is improved aeration in the right lower lobe compared to prior Pleural spaces: Unremarkable. No pleural effusion. No pneumothorax. Pleural spaces: : Unremarkable. No pleural effusion. No pneumothorax. Heart/Mediastinum: Unremarkable. No cardiomegaly. Bones/joints: Unremarkable. XR/XR chest 1V portable [id number] IMPRESSION: 1. Right upper lobe interstitial congestion. 2. Improved aeration right lower lobe since prior exam
--- NOTE | 2021-03-17 11:45 | PM.PN ---
Subjective Subjective: Interval history: Patient was seen and examined this morning, currently she is on 8 Ls oxygen through nasal cannula. Medications: Reviewed: Yes Vitals/I&O/Wt Last Vital Signs Temp 97.9 F 03/17/21 08:00 Pulse 108 H 03/17/21 10:00 Resp 22 H 03/17/21 10:00 BP 106/76 03/17/21 10:00 Pulse Ox 92 03/17/21 10:00 03/16/21 03/17/21 03/17/21 22:59 06:59 14:59 Intake Total 50 / 570 50 / 620 Output Total 800 / 1300 600 / 1900 Balance -750 / -730 -550 / -1280 Physical Exam Const: COMMON NORMALS: patient oriented x3 HENMT: COMMON NORMALS: normocephalic and atraumatic HEAD & SCALP: normocephalic and atraumatic Resp: COMMON NORMALS: clear to auscultation bilaterally EFFORT & INSPECTION: Yes tachypneic, Yes respiratory distress and Yes Actively coughing AUSCULTATION: clear to auscultation bilaterally Cardio: COMMON NORMALS: regular rate, regular rhythm, S1 normal heart sound present, S2 normal heart sound present, No gallops present (Cardio), No murmurs present (Cardio), No rub (Cardio) and Peripheral pulses 2+ throughout RATE: regular rate RHYTHM: regular rhythm HEART SOUNDS: S1 normal heart sound present and S2 normal heart sound present PERIPHERAL PULSES: Peripheral pulses 2+ throughout GI: COMMON NORMALS: Normal to inspection, nondistended, normoactive bowel sounds present, Soft to palpation, non-tender, No hepatosplenomegaly present and no masses AUSCULTATION: Yes normoactive bowel sounds PALPATION: Yes Soft to palpation and Yes No hepatosplenomegaly present RECTAL EXAM: deferred Extremity: COMMON NORMALS: no clubbing, cyanosis or edema and no pedal edema Neuro: COMMON NORMALS: patient oriented x3 Urinary Catheter Management^: Ann: Cath Placed During This Visit: yes Reason for Continuing Indwelling Catheter: Accurate Measurement of Urinary Output in Critically Ill Patients Urinary Catheter Date of Insertion: 03/11/21 Urinary Catheter Time of Insertion: 18:30 Data : 03/16/21 04:12 03/16/21 04:12 A&P Assessment and plan (1) Pneumonia due to 2019-nCoV: Heated high flow, no evidence of respiratory distress, does have wheezing on exam CT angiogram of the chest shows 1. Positive for small volume pulmonary embolism. 2. There is no convincing CT angiogram evidence of acute significant right heart strain. 3. Widespread predominantly ground-glass airspace disease significantly worse than prior. 4. Commonly reported imaging features of COVID-19 pneumonia are present. Other processes such as influenza pneumonia and organizing pneumonia, as can be seen with drug toxicity and connective tissue disease, can cause a similar imaging pattern. (Reference: Thomas) -Cardiac echocardiogram shows . This is a technically difficult study. 2. Normal left ventricular cavity size. Normal left ventricular systolic function. Left ventricular ejection fraction is estimated at 55 %. Although no diagnostic regional wall motion abnormality could be identified, this possibility cannot be completely excluded based on this study. Abnormal diastolic function. 3. No gross valvular abnormality on this study. 4. No prior similar studies to compare. -This likely patient has severe COVID-19 pneumonia, with evidence of acute respiratory distress syndrome, small volume pulmonary embolism -I advised patient that in the next 24 to 48 hours, she is at high risk of intubation, she wants to avoid intubation as much as possible, only if absolutely required, and if she were to have cardiac arrest, she would only like CPR for about 15 minutes, she would not want to be resuscitated or kept on life support if the likelihood of meaningful recovery is unlikely Plan: Remdisivir 200mg iv x 1 followed by 100mg iv daily day 3 dexamethasone 6mg IVP daily day 3 Status post Actemra 03/10/2021 duoneb q6h, budesonide q12h Broaden antibiotic coverage to vancomycin and cefepime for secondary bacterial pneumonia prophylaxis Continue therapeutic Lovenox for pulmonary emboli is some as above Aniceto Ricardo, time with codeine for cough For rhabdomyolysis, hold IV hydration Flutter valve/spirometer at bedside trend inflammatory markers including CRP -Full code -Lovenox for DVT prophylaxis -Protonix for GI prophylaxis Status: Acute (2) Transaminitis: Status: Inactive (3) Obesity, morbid, BMI 50 or higher: Status: Chronic (4) Essential (primary) hypertension: Status: Chronic (5) Rhabdomyolysis: Status: Acute (6) ARDS (adult respiratory distress syndrome): Status: Acute (7) Acute respiratory failure with hypoxia: Status: Acute Attestations Medical Necessity Statement*: Patient needs to hospital for management of pneumonia. Coding Level of Care Code Acute Administrative Support Clerk for [facility] Fwd Exam Detailed Diagnoses Pneumonia due to 2019-nCoV U07.1; J12.82 Transaminitis R74.01 Obesity, morbid, BMI 50 or higher E66.01 Essential (primary) hypertension I10 Rhabdomyolysis M62.82 ARDS (adult respiratory distress syndrome) J80 Acute respiratory failure with hypoxia J96.01
--- NOTE | 2021-03-17 15:07 | CTR_ITS ---
PROCEDURE INFORMATION: Exam: CT Abdomen And Pelvis Without Contrast Exam date and time: 03/17/2021 3:07 PM Age: 50 years old Clinical indication: Abdominal pain; Localized; Right; Additional info: RT upper qudrant abdominal pain TECHNIQUE: Imaging protocol: Computed tomography of the abdomen and pelvis without contrast. Radiation optimization: All CT scans at this facility use at least one of these dose optimization techniques: automated exposure control; mA and/or kV adjustment per patient size (includes targeted exams where dose is matched to clinical indication); or iterative reconstruction. COMPARISON: CT abdomen pelvis w con* [id number] 11/11/2020 9:52 AM RADIATION DOSE METRICS: Total DLP (mGy-cm): 1497.94 FINDINGS: Lungs: Chest: There is diffuse interstitial densities in the bilateral lower lobes. Liver: There is hepatomegaly the liver span is 23 cm. . No mass. Gallbladder and bile ducts: Normal. No calcified stones. No ductal dilation. Pancreas: Normal. No ductal dilation. Spleen: Normal. No splenomegaly. Adrenal glands: Normal. No mass. Kidneys and ureters: Small 3-4 mm nonobstructing caliceal stones are seen in the proximal collecting system of both kidneys. No hydronephrosis. Stomach and bowel: Unremarkable. No obstruction. No mucosal thickening. Appendix: No evidence of appendicitis. Intraperitoneal space: Unremarkable. No free air. No significant fluid collection. Vasculature: Unremarkable. No abdominal aortic aneurysm. Lymph nodes: Unremarkable. No enlarged lymph nodes. Urinary bladder: Unremarkable as visualized. Reproductive: Unremarkable as visualized. Bones/joints: Unremarkable. No acute fracture. Soft tissues: There is a right side anterolateral abdominal wall mass seen. This finding shows soft tissue density and appears to taper in the superior and inferior aspect. The finding seen correspond to a rectus sheath hematoma This finding arises at the level of the abdominal inlet and extends into the pelvis. This finding has a craniocaudal length of 345 mm with AP measurement of 61 mm transverse measurement is 117 mm. In the anterior right pelvis a portion of the hematoma is present with AP measurement of 79 mm, transverse measurement of 119 mm and craniocaudal measurement of 58 mm. This lesion appears to extend into the right posterolateral abdomen measuring 129 mm x 40 mm in the axial plane at the level of the lower pole of the right kidney. There is diffuse increased density in the subcutaneous fat on the right side of the abdomen which may represent a contusion; CT/CT abdomen pelvis wo con [id number] IMPRESSION: 1. Large right side rectus sheath hematoma in the abdomen and pelvis 2. Hepatomegaly without focal hepatic abnormality. 3. Nonobstructing caliceal stones in both kidneys 4. Subcutaneous soft tissue contusion right abdominal wall . 5. Bilateral lower lung interstitial densities Radiation Dose CTDIVOL = (mGy): DLP = 1497.94 (mGy-cm)
[2021-03-17 19:41] LABS: Glucose Point of Care 131 mg/dL (70-110)
--- NOTE | 2021-03-17 20:03 | PC.NURSE ---
Pt requested RN to call Kalen, , to give an update on condition and pt cell phone broke. Call placed and Kalen appreciative of update. Call transferred to pt room.
[2021-03-17 20:14] LABS: Basophils # 0.1 10^3/uL (0.0-0.1); Basophils % 0.3 %; Eosinophils # 0.2 10^3/uL (0.0-0.8); Hematocrit 33.8 % (37.0-47.0); Hemoglobin 10.7 g/dL (11.5-15.3); Lymphocytes # 1.9 10^3/uL (0.8-4.8); Mean Corpuscular HGB Conc 31.7 g/dL (30.0-36.0); Mean Corpuscular Hemoglobin 29.6 pg (28.0-34.0); Mean Corpuscular Volume 93.6 fl (81-99); Mean Platelet Volume 10.2 fL (7.4-10.4); Monocytes # 1.1 10^3/uL (0.2-0.9); Monocytes % 5.9 %; Neutrophils # 14.57 10^3/uL (1.8-7.7); Nucleated Red Blood Cells % 0 %; Platelet Count 422 10^3/cmm (130-400); Red Blood Count 3.61 10^6/uL (4.1-5.3); Red Cell Distribution Width 14.1 % (12.1-15.1); White Blood Count 18.7 10^3/uL (4.0-10.0)
[2021-03-17 20:36] LABS: Glucose Point of Care 215 mg/dL (70-110)
[2021-03-17] MEDS: ALPRAZolam 0.5 mg Tablet PO (21:32)
[2021-03-18] VITALS (15 sets, daily range): BP systolic 93–119; BP diastolic 65–83; PULSE 98–118; RESP 15–20; TEMP 36.4–36.9; O2SAT 90–96
[2021-03-18] MEDS: dexamethasone 4 mg/mL INJ 6 MG IVP (04:16)
[2021-03-18 06:11] LABS: Basophils % 0.2 %; Eosinophils # 0.2 10^3/uL (0.0-0.8); Hematocrit 31.9 % (37.0-47.0); Hemoglobin 9.9 g/dL (11.5-15.3); Lymphocytes # 2.3 10^3/uL (0.8-4.8); Lymphocytes % 10.2 %; Mean Corpuscular Hemoglobin 29.3 pg (28.0-34.0); Mean Corpuscular Volume 94.4 fl (81-99); Mean Platelet Volume 10.2 fL (7.4-10.4); Monocytes # 0.9 10^3/uL (0.2-0.9); Monocytes % 3.9 %; Neutrophils # 17.99 10^3/uL (1.8-7.7); Neutrophils % 80.1 %; Nucleated Red Blood Cells % 0 %; Platelet Count 381 10^3/cmm (130-400); Red Blood Count 3.38 10^6/uL (4.1-5.3); Red Cell Distribution Width 14.4 % (12.1-15.1); White Blood Count 22.5 10^3/uL (4.0-10.0)
[2021-03-18 06:37] LABS: Alanine Aminotransferase 56 U/L (0-33); Albumin Level 3.5 g/dL (3.5-5.2); Alkaline Phosphatase 81 IU/L (35-105); Aspartate Amino Transferase 20 U/L (0-32); Blood Urea Nitrogen 64 mg/dL (6-20); Calcium 8.7 mg/dL (8.5-10.5); Carbon Dioxide 20 mmol/L (22-29); Chloride 101 mmol/L (98-107); Globulin 2.5 g/dL (1.3-4.6); Glomerular Filtration Rate 31.8 mL/min (90-130); Glucose 203 mg/dL (65-115); Magnesium 2.8 mg/dL (1.7-2.3); Osmolality Calculated 306 mOsm/kg (285-295); Sodium 136 mmol/L (136-145); Total Bilirubin 0.3 mg/dL (0.15-1.2)
[2021-03-18 07:10] LABS: Glucose Point of Care 240 mg/dL (70-110)
[2021-03-18] MEDS: ipratropium-albuterol 3 mL Neb INHALATION ×3 (08:43→20:51)
[2021-03-18] MEDS: budesonide 0.5 mg/2 mL Neb INHALATION ×2 (08:43→20:51)
[2021-03-18] MEDS: sodium chloride 0.9% 1,000 ML 30 ML IV (08:59)
[2021-03-18] MEDS: benzonatate 100 mg Capsule 200 MG PO ×3 (09:04→21:23)
[2021-03-18] MEDS: cholecalciferol (vitamin D3) 1,000 unit Tablet 1000 UNIT PO (09:04)
[2021-03-18] MEDS: zinc gluconate 50 mg Tablet PO (09:04)
[2021-03-18] MEDS: levofloxacin-dextrose 5 % 750 MG/150 ML PREMIX 100 MG IV (09:05)
[2021-03-18] MEDS: ascorbic acid 500 mg Tablet PO ×2 (09:05→18:20)
[2021-03-18] MEDS: pantoprazole DR 40 mg Tablet PO ×2 (09:05→18:20)
[2021-03-18] MEDS: oxyCODONE-APAP 5-325 mg Tablet PO ×2 (09:20→16:26)
[2021-03-18 11:08] LABS: Glucose Point of Care 441 mg/dL (70-110)
--- NOTE | 2021-03-18 11:21 | P.PN_ITS ---
Subjective Subjective: Interval history: Patient was seen and examined this morning, currently she is on 8 Ls oxygen through nasal cannula. Medications: Reviewed: Yes Vitals/I&O/Wt Last Vital Signs Temp 97.9 F 03/18/21 07:30 Pulse 108 H 03/18/21 08:58 Resp 18 03/18/21 09:20 BP 93/65 03/18/21 07:30 Pulse Ox 95 03/18/21 09:20 03/17/21 03/18/21 03/18/21 22:59 06:59 14:59 Intake Total 240 / 390 270 / 270 Output Total 175 / 175 Balance 240 / 390 -175 / 215 270 / 270 Physical Exam Const: COMMON NORMALS: patient oriented x3 HENMT: COMMON NORMALS: normocephalic and atraumatic HEAD & SCALP: normocephalic and atraumatic Resp: COMMON NORMALS: clear to auscultation bilaterally AUSCULTATION: clear to auscultation bilaterally Cardio: COMMON NORMALS: regular rate, regular rhythm, S1 normal heart sound present, S2 normal heart sound present, No gallops present (Cardio), No murmurs present (Cardio), No rub (Cardio) and Peripheral pulses 2+ throughout RATE: regular rate RHYTHM: regular rhythm HEART SOUNDS: S1 normal heart sound present and S2 normal heart sound present PERIPHERAL PULSES: Peripheral pulses 2+ throughout GI: COMMON NORMALS: Normal to inspection, nondistended, normoactive bowel sounds present AUSCULTATION: Yes normoactive bowel sounds RECTAL EXAM: deferred OTHER: Rt upper quadrant tenderness present as well as well circumscribed mass. Extremity: COMMON NORMALS: no clubbing, cyanosis or edema and no pedal edema Neuro: COMMON NORMALS: patient oriented x3 Urinary Catheter Management^: Ann: Cath Placed During This Visit: yes Reason for Continuing Indwelling Catheter: Acute Urinary Retention or Obstruction Urinary Catheter Date of Insertion: 03/11/21 Urinary Catheter Time of Insertion: 18:30 Data : 03/18/21 05:45 03/18/21 05:45 A&P Assessment and plan (1) Pneumonia due to 2019-nCoV: Covid pneumonia: Patient was kept on Covid protocol. she completed course of remdesivir, status post 1 dose of Actemra, completed 10 days of dexamethasone course, currently on tapering dexamethasone dose 3 mg p.o. daily. She was empirically covered with antibiotics Which has been discontinued now. [id number], budesonide inhale. Currently she is requiring 4 L oxygen per nasal cannula. CT angio of chest during this hospital stay: Showed small volume pulmonary embolism, for which she was on therapeutic anticoagulation.Therapeutic anticoa gulation had to be kept on hold, as the patient has developed a large right- sided rectus sheath hematoma. CT scan also showed: Widespread predominantly ground-glass airspace disease significantly worse than prior. Follow-up chest x-ray: Has shown improvement in pneumonia. 2D echo done during the hospital stay:Has shown Normal LV cavity and systolic function with LVEF of 55%. No gross valvular ab normality. So far patient has responded well to Covid pneumonia, initially she was on heated high flow oxygen,currently she has been transitioned to 4 L oxygen through nasal cannula. Status: Acute (2) Pulmonary embolism: Status: Acute (3) Transaminitis: Status: Inactive (4) Obesity, morbid, BMI 50 or higher: Status: Chronic (5) Essential (primary) hypertension: Status: Chronic (6) Rhabdomyolysis: Status: Acute (7) ARDS (adult respiratory distress syndrome): Status: Acute (8) Acute respiratory failure with hypoxia: Status: Acute Additional A&P Information # Large right side rectus sheath hematoma in the abdomen and pelvis: Anti coagulation on hold Monitor CBC for now. Transfuse to maintain Hb>7 Attestations Medical Necessity Statement*: Patient is to be in hospital for management of Covid pneumonia. Coding Level of Care Code Acute Emergency Medicine Specialist for [facility] Fwd Exam Detailed Diagnoses Pneumonia due to 2019-nCoV U07.1; J12.82 Pulmonary embolism I26.99 Transaminitis R74.01 Obesity, morbid, BMI 50 or higher E66.01 Essential (primary) hypertension I10 Rhabdomyolysis M62.82 ARDS (adult respiratory distress syndrome) J80 Acute respiratory failure with hypoxia J96.01
--- NOTE | 2021-03-18 12:05 | PC.NURSE ---
Physician allowed two visitors to come in and visit patient. Patient on COVID Droplet/contact precaution. Patient informed of time restrictions.
[2021-03-18 16:44] LABS: Glucose Point of Care 174 mg/dL (70-110)
[2021-03-18 16:55] LABS: Basophils # 0.1 10^3/uL (0.0-0.1); Basophils % 0.2 %; Eosinophils % 0.1 %; Hemoglobin 9.2 g/dL (11.5-15.3); Mean Corpuscular HGB Conc 31.7 g/dL (30.0-36.0); Mean Corpuscular Hemoglobin 29.7 pg (28.0-34.0); Mean Corpuscular Volume 93.5 fl (81-99); Mean Platelet Volume 10.2 fL (7.4-10.4); Neutrophils % 83.5 %; Nucleated Red Blood Cells % 0 %; Platelet Count 366 10^3/cmm (130-400); Red Cell Distribution Width 14.5 % (12.1-15.1); White Blood Count 25.1 10^3/uL (4.0-10.0)
[2021-03-18 20:39] LABS: Glucose Point of Care 210 mg/dL (70-110)
[2021-03-18] MEDS: ALPRAZolam 0.5 mg Tablet PO (22:52)
[2021-03-19] VITALS (13 sets, daily range): BP systolic 111–167; BP diastolic 76–97; PULSE 78–119; RESP 14–18; TEMP 36.5–37.1; O2SAT 91–97
[2021-03-19 05:46] LABS: Basophils % 0.2 %; Eosinophils # 0.1 10^3/uL (0.0-0.8); Eosinophils % 0.3 %; Hematocrit 25.3 % (37.0-47.0); Hemoglobin 8.1 g/dL (11.5-15.3); Lymphocytes # 2.1 10^3/uL (0.8-4.8); Lymphocytes % 11.1 %; Mean Corpuscular Hemoglobin 30.3 pg (28.0-34.0); Mean Corpuscular Volume 94.8 fl (81-99); Mean Platelet Volume 10.5 fL (7.4-10.4); Monocytes % 5.4 %; Neutrophils # 14.74 10^3/uL (1.8-7.7); Neutrophils % 78.8 %; Nucleated Red Blood Cells % 0 %; Platelet Count 263 10^3/cmm (130-400); Red Blood Count 2.67 10^6/uL (4.1-5.3); Red Cell Distribution Width 14.6 % (12.1-15.1); White Blood Count 18.7 10^3/uL (4.0-10.0)
[2021-03-19 06:15] LABS: Alanine Aminotransferase 39 U/L (0-33); Albumin Level 3.3 g/dL (3.5-5.2); Alkaline Phosphatase 74 IU/L (35-105); Anion Gap 15.4 (5-19); Aspartate Amino Transferase 12 U/L (0-32); Blood Urea Nitrogen 57 mg/dL (6-20); Calcium 8.6 mg/dL (8.5-10.5); Carbon Dioxide 22 mmol/L (22-29); Chloride 100 mmol/L (98-107); Glomerular Filtration Rate 43.4 mL/min (90-130); Glucose 156 mg/dL (65-115); Osmolality Calculated 295 mOsm/kg (285-295); Potassium 4.4 mmol/L (3.5-5.1); Sodium 133 mmol/L (136-145); Total Bilirubin 0.3 mg/dL (0.15-1.2); Total Protein 5.3 g/dL (6.6-8.7)
[2021-03-19 06:15] LABS: Glucose Point of Care 186 mg/dL (70-110)
[2021-03-19] MEDS: benzonatate 100 mg Capsule 200 MG PO ×3 (08:17→21:54)
[2021-03-19] MEDS: dexamethasone 4 mg Tablet 3 MG PO (08:17)
[2021-03-19] MEDS: pantoprazole DR 40 mg Tablet PO ×2 (08:17→17:47)
[2021-03-19] MEDS: zinc gluconate 50 mg Tablet PO (08:17)
[2021-03-19] MEDS: oxyCODONE-APAP 5-325 mg Tablet PO (08:17)
[2021-03-19] MEDS: cholecalciferol (vitamin D3) 1,000 unit Tablet 1000 UNIT PO (08:17)
[2021-03-19] MEDS: ascorbic acid 500 mg Tablet PO ×2 (08:17→17:47)
[2021-03-19] MEDS: ipratropium-albuterol 3 mL Neb INHALATION (09:22)
[2021-03-19] MEDS: budesonide 0.5 mg/2 mL Neb INHALATION (09:25)
[2021-03-19 11:38] LABS: Glucose Point of Care 193 mg/dL (70-110)
[2021-03-19 11:53] LABS: NT Pro B Type Natriuretic Pept 90 pg/mL (0-125); Procalcitonin 0.08 ng/mL (0-0.5)
[2021-03-19 11:54] LABS: Thyroid Stimulating Hormone 1.35 uIU/mL (0.27-4.20)
[2021-03-19 12:03] LABS: Iron 149 ug/dL (37-145); Percent Saturation 60.5 % (20-50); Total Iron Binding Capacity 246 mcg/dl; Unsaturated Iron Binding 97 ug/dL (112-347)
--- NOTE | 2021-03-19 13:14 | PM.PN ---
Subjective Subjective: Interval history: Hospital course, labs appreciated. On examination patient sitting up in recliner comfortable on 4 L oxygen supplementation saturating at 92%. Denies any nausea, vomiting, headache, dizziness. Has been working well with I-S and Acapella. We discussed the future plan of holding off on anticoagulation for next 2 weeks while her rectus sheath hematoma stabilizes and then need to be on anticoagulation for at least 6 months for a new diagnosis of pulmonary embolism while monitoring her hemoglobin. Medications: Reviewed: Yes Vitals/I&O/Wt Last Vital Signs Temp 98.3 F 03/19/21 11:42 Pulse 96 03/19/21 11:42 Resp 17 03/19/21 11:42 BP 122/83 03/19/21 11:42 Pulse Ox 96 03/19/21 11:42 03/18/21 03/19/21 03/19/21 22:59 06:59 14:59 Intake Total 480 / 480 Output Total 475 / 475 900 / 1375 325 / 325 Balance -475 / -205 -900 / -1105 155 / 155 Physical Exam Narrative: EXAM NARRATIVE: General: No acute distress, AO x3, morbidly obese, on 4 L oxygen supplementation HEENT: PERRLA, pupils bilaterally equal and reactive Chest: Bilateral bronchial breath sounds, coarse crackles present on both lung miller, equal good air entry bilaterally CVS: S1-S2 regular, no murmurs, no tachycardia, no gallops, no rubs Abdomen: Soft, nontender, no organomegaly, bowel sounds present Neuro: No focal deficits, no facial deformity, AO x3, power 5/5 in all limbs Urinary Catheter Management^: Ann: Cath Placed During This Visit: yes Reason for Continuing Indwelling Catheter: Acute Urinary Retention or Obstruction Urinary Catheter Date of Insertion: 03/11/21 Urinary Catheter Time of Insertion: 18:30 Data : 03/19/21 05:26 03/19/21 05:26 A&P Assessment and plan (1) Acute respiratory failure with hypoxia: Multifactorial. Combination of COPD, sleep apnea, COVID-19 pneumonia, pulmonary embolism Status: Acute (2) Pneumonia due to 2019-nCoV: Post treatment with remdesivir, 1 dose Actemra. Currently on dexamethasone 3 mg daily. Advair, Spiriva. Vitamin C, zinc. External supplementation keeping saturation over 88%. 2D echo done during the hospital stay:Has shown Normal LV cavity and systolic function with LVEF of 55%. No gross valvular abnormality. Continue to monitor inflammatory markers including ESR, CRP, D-dimer. Status: Acute (3) Pulmonary embolism: As seen on CTA done on admission. Off anticoagulation because of anemia secondary to rectus sheath hematoma. Hold off anticoagulation for next 2 weeks. Echocardiogram negative for right-sided heart strain. Status: Acute (4) Anemia: Hemoglobin down to 8 today. 9.2 yesterday. Could be secondary to dilutional from IV fluids running at 30 cc/h. 1 unit of PRBC. Vitamin B12, folate, iron studies. Start on oral supplementation. Protonix 40 mg IV twice daily. Status: Acute (5) Rectus sheath hematoma: From the history sounds like traumatic from aggressive coughing. Denies any fall or injury during hospitalization or prior to coming in. Continue to monitor hemoglobin daily for now. Denies any pain. Status: Acute (6) Rhabdomyolysis: Status: Acute (7) Essential (primary) hypertension: Status: Chronic (8) Transaminitis: Status: Inactive (9) Obesity, morbid, BMI 50 or higher: Status: Chronic Additional A&P Information Full code. Protonix for PUD prophylaxis. Hold off on DVT prophylaxis given anemia secondary rectus sheath hematoma, SCDs. Attestations Medical Necessity Statement*: Requires further hospitalization for management of hypoxia secondary to COVID-19 pneumonia, pulmonary embolism, SUZIE, anemia secondary rectus sheath hematoma Time Spent in Patient Care: Greater than 35 minutes (>than 50% of time spent in counselling and/or direct pt care on unit). Coding Level of Care Code Acute Supervisor [employer] for [facility] Diagnoses Acute respiratory failure with hypoxia J96.01 Pneumonia due to 2019-nCoV U07.1; J12.82 Pulmonary embolism I26.99 Anemia D64.9 Rectus sheath hematoma S30.1XXA Rhabdomyolysis M62.82 Essential (primary) hypertension I10 Transaminitis R74.01 Obesity, morbid, BMI 50 or higher E66.01
[2021-03-19] MEDS: sodium chloride 0.9% (100 ml) 100 ML 50 ML (13:52)
[2021-03-19] MEDS: guaiFENesin 100 mg/5 mL UDC 10 mL 200 MG PO (15:52)
[2021-03-19 17:31] LABS: Glucose Point of Care 238 mg/dL (70-110)
[2021-03-19] MEDS: ferrous gluconate 324 mg Tablet PO (17:47)
[2021-03-19 21:13] LABS: Glucose Point of Care 193 mg/dL (70-110)
--- NOTE | 2021-03-19 21:50 | PC.NURSE ---
Patient incontinent of bladder with one brief being soaked through with copious amounts of urine.
[2021-03-19] MEDS: sodium chloride 0.9% 1,000 ML 30 ML IV (21:57)
[2021-03-20] VITALS (8 sets, daily range): BP systolic 116–156; BP diastolic 67–99; PULSE 76–102; RESP 16–20; TEMP 36.4–36.6; O2SAT 88–98
[2021-03-20 05:36] LABS: Basophils % 0.2 %; Eosinophils % 0.1 %; Lymphocytes # 1.9 10^3/uL (0.8-4.8); Lymphocytes % 11.3 %; Mean Corpuscular Hemoglobin 30.1 pg (28.0-34.0); Mean Platelet Volume 10.6 fL (7.4-10.4); Monocytes # 0.9 10^3/uL (0.2-0.9); Monocytes % 5.3 %; Neutrophils # 13.07 10^3/uL (1.8-7.7); Neutrophils % 77.8 %; Nucleated Red Blood Cells # 0.1 /100WBC; Nucleated Red Blood Cells % 0.3 %; Platelet Count 247 10^3/cmm (130-400); Red Blood Count 2.66 10^6/uL (4.1-5.3); Red Cell Distribution Width 14.6 % (12.1-15.1); White Blood Count 16.8 10^3/uL (4.0-10.0)
[2021-03-20 05:47] LABS: D Dimer 1.05 ug/mIFEU (0-0.59)
[2021-03-20 05:58] LABS: Alanine Aminotransferase 33 U/L (0-33); Albumin Level 3.5 g/dL (3.5-5.2); Alkaline Phosphatase 68 IU/L (35-105); Anion Gap 13.6 (5-19); Aspartate Amino Transferase 16 U/L (0-32); Blood Urea Nitrogen 47 mg/dL (6-20); C Reactive Protein 0.7 mg/L (0.0-4.9); Calcium 8.7 mg/dL (8.5-10.5); Carbon Dioxide 25 mmol/L (22-29); Chloride 103 mmol/L (98-107); Creatine Phosphokinase 158 U/L (26-192); Ferritin 334 ng/mL (15-150); Glomerular Filtration Rate 75.9 mL/min (90-130); Glucose 180 mg/dL (65-115); Osmolality Calculated 301 mOsm/kg (285-295); Potassium 4.6 mmol/L (3.5-5.1); Sodium 137 mmol/L (136-145); Total Bilirubin 0.3 mg/dL (0.15-1.2); Total Protein 5.5 g/dL (6.6-8.7)
--- NOTE | 2021-03-20 06:00 | XRR_ITS ---
PROCEDURE INFORMATION: Exam: XR Chest Exam date and time: 03/20/2021 6:00 AM Age: 50 years old Clinical indication: Cough and shortness of breath; Patient HX: History--follow up covid TECHNIQUE: Imaging protocol: XR of the chest. Views: 1 view. COMPARISON: CR (CHEST, ) 03/17/2021 11:54 AM FINDINGS: Lungs: Low lung volumes. Persistent bilateral airspace opacities. No large pleural effusion or pneumothorax. Pleural spaces: See Lungs finding. Heart/Mediastinum: Stable cardiomediastinal silhouette. Bones/joints: No acute osseous injury identified. XR/XR chest 1V portable [id number] IMPRESSION: Persistent bilateral airspace opacities.
[2021-03-20 06:03] LABS: Slide Review Slide Review Perform
[2021-03-20 06:13] LABS: Estmated Average Glucose 151; Hemoglobin A1C 6.9 % (4.0-6.0)
[2021-03-20 06:25] LABS: Glucose Point of Care 208 mg/dL (70-110)
[2021-03-20 06:34] LABS: Erythrocyte Sedimentation Rate 16 mm/hr (0-15)
[2021-03-20] MEDS: ascorbic acid 500 mg Tablet PO ×2 (08:43→17:50)
[2021-03-20] MEDS: dexamethasone 4 mg Tablet 3 MG PO (08:43)
[2021-03-20] MEDS: cholecalciferol (vitamin D3) 1,000 unit Tablet 1000 UNIT PO (08:43)
[2021-03-20] MEDS: zinc gluconate 50 mg Tablet PO (08:43)
[2021-03-20] MEDS: benzonatate 100 mg Capsule 200 MG PO ×3 (08:44→22:27)
[2021-03-20] MEDS: pantoprazole DR 40 mg Tablet PO ×2 (08:44→17:50)
[2021-03-20] MEDS: ferrous gluconate 324 mg Tablet PO ×2 (08:44→17:50)
[2021-03-20] MEDS: acetaminophen 325 mg Tablet 650 MG PO (08:54)
--- NOTE | 2021-03-20 10:35 | PC.NURSE ---
Patient walked to the bathroom with a walker and voided and had a bowel movement. Karri with therapy states that patient is able to walk to the bathroom with a walker safely.
[2021-03-20 11:39] LABS: Glucose Point of Care 233 mg/dL (70-110)
--- NOTE | 2021-03-20 12:45 | P.PN_ITS ---
Subjective Subjective: Interval history: No acute events overnight. Patient denies any nausea, vomiting, headache. States she is feeling better. Getting stronger. Able to work with physical therapy. Walked in the room to the commode today. Denies any nausea, vomiting, headache. States abdominal pain is better. Thinks that her hematoma is improving. Currently on 3 L oxygen supplementation with nasal cannula saturating 92%. Medications: Reviewed: Yes Vitals/I&O/Wt Last Vital Signs Temp 97.7 F 03/20/21 11:39 Pulse 92 03/20/21 11:39 Resp 20 H 03/20/21 11:39 BP 151/70 03/20/21 11:39 Pulse Ox 92 03/20/21 11:39 03/19/21 03/20/21 03/20/21 22:59 06:59 14:59 Intake Total 1690 / 2170 900 / 3070 240 / 240 Output Total Balance 1690 / 1645 899 / 2544 240 / 240 Physical Exam Narrative: EXAM NARRATIVE: General: No acute distress, AO x3, morbidly obese, on 3 L oxygen supplementation HEENT: PERRLA, pupils bilaterally equal and reactive Chest: Bilateral bronchial breath sounds, coarse crackles present on both lung miller, equal good air entry bilaterally CVS: S1-S2 regular, no murmurs, no tachycardia, no gallops, no rubs Abdomen: Soft, nontender, no organomegaly, bowel sounds present Neuro: No focal deficits, no facial deformity, AO x3, power 5/5 in all limbs Urinary Catheter Management^: Ann: Cath Placed During This Visit: yes Reason for Continuing Indwelling Catheter: Acute Urinary Retention or Obstruction Urinary Catheter Date of Insertion: 03/11/21 Urinary Catheter Time of Insertion: 18:30 Data : 03/20/21 04:45 03/20/21 04:45 A&P Assessment and plan (1) Acute respiratory failure with hypoxia: Multifactorial. Combination of COPD, sleep apnea, COVID-19 pneumonia, pulmonary embolism Status: Acute (2) Pneumonia due to 2019-nCoV: Post treatment with remdesivir, 1 dose Actemra. Currently on dexamethasone 3 mg daily. Advair, Spiriva. Vitamin C, zinc. External supplementation keeping saturation over 88%. 2D echo done during the hospital stay:Has shown Normal LV cavity and systolic function with LVEF of 55%. No gross valvular abnormality. Continue to monitor inflammatory markers including ESR, CRP, D-dimer. Status: Acute (3) Pulmonary embolism: As seen on CTA done on admission. Off anticoagulation because of anemia secondary to rectus sheath hematoma. Hold off anticoagulation for next 1 weeks. Echocardiogram negative for right-sided heart strain. Status: Acute (4) Anemia: Post 1 unit PRBC transfusion. Hemoglobin stable at 8. Stop IV fluids. Repeat hemoglobin in afternoon and monitor CBC daily. Vitamin B12, folate, iron studies. Start on oral supplementation. Protonix 40 mg IV twice daily. Status: Acute (5) Rectus sheath hematoma: From the history sounds like traumatic from aggressive coughing. Denies any fall or injury during hospitalization or prior to coming in. Continue to monitor hemoglobin daily for now. Denies any pain. Status: Acute (6) Rhabdomyolysis: Status: Acute (7) Essential (primary) hypertension: Status: Chronic (8) Transaminitis: Status: Inactive (9) Obesity, morbid, BMI 50 or higher: Status: Chronic Additional A&P Information Full code. Protonix for PUD prophylaxis. Hold off on DVT prophylaxis given anemia secondary rectus sheath hematoma, SCDs. Attestations Medical Necessity Statement*: Requires further hospitalization for management of hypoxia secondary to COVID-19 pneumonia, pulmonary embolism, anemia secondary rectus sheath hematoma Time Spent in Patient Care: Greater than 35 minutes (>than 50% of time spent in counselling and/or direct pt care on unit) . Coding Level of Care Code Acute Loader Magazine Grinder for [facility] Fwd Diagnoses Acute respiratory failure with hypoxia J96.01 Pneumonia due to 2019-nCoV U07.1; J12.82 Pulmonary embolism I26.99 Anemia D64.9 Rectus sheath hematoma S30.1XXA Rhabdomyolysis M62.82 Essential (primary) hypertension I10 Transaminitis R74.01 Obesity, morbid, BMI 50 or higher E66.01
[2021-03-20] MEDS: FUROsemide 10 mg/mL SDV 2mL 20 MG IVP (14:01)
[2021-03-20] MEDS: amlodipine 10 mg Tablet PO (14:01)
[2021-03-20 15:24] LABS: Hematocrit 28.2 % (37.0-47.0); Hemoglobin 8.9 g/dL (11.5-15.3)
[2021-03-20 17:01] LABS: Glucose Point of Care 258 mg/dL (70-110)
[2021-03-20] MEDS: acetaminophen-codeine 300-30mg Tablet 1 TAB PO (18:42)
--- NOTE | 2021-03-20 18:47 | XR_ITS ---
WS: [id number] Portable AP upright chest, 03/20/2021, 1851 hours Clinical Data: Increased pain Comparison: Portable chest, 03/20/2021, 0619 hours. Findings: The bilateral pulmonary opacities remain the same. The heart remains enlarged. The aortic a rch is tortuous. Monitor leads are on the chest wall. XR/XR chest 1V portable [id number] Impression: No change in bilateral pulmonary opacities and cardiomegaly.
[2021-03-20] MEDS: guaiFENesin 100 mg/5 mL UDC 10 mL 200 MG PO (18:50)
--- NOTE | 2021-03-20 19:16 | PC.NURSE ---
Report to Vivien TAN at this time.
[2021-03-20 21:04] LABS: Glucose Point of Care 232 mg/dL (70-110)
[2021-03-21] VITALS: BP 137/85; PULSE 92; RESP 19; TEMP 36.6; O2SAT 96
[2021-03-21] MEDS: acetaminophen 325 mg Tablet 650 MG PO (03:31)
[2021-03-21 04:00] VITALS: BP 154/85; PULSE 101; RESP 17; TEMP 36.9; O2SAT 98
[2021-03-21 05:44] LABS: Basophils % 0.1 %; Eosinophils # 0.1 10^3/uL (0.0-0.8); Eosinophils % 0.4 %; Hematocrit 26.7 % (37.0-47.0); Hemoglobin 8.5 g/dL (11.5-15.3); Lymphocytes # 2.5 10^3/uL (0.8-4.8); Lymphocytes % 15.6 %; Mean Corpuscular HGB Conc 31.8 g/dL (30.0-36.0); Mean Corpuscular Hemoglobin 30.6 pg (28.0-34.0); Mean Platelet Volume 10.2 fL (7.4-10.4); Neutrophils # 11.38 10^3/uL (1.8-7.7); Neutrophils % 72.3 %; Nucleated Red Blood Cells # 0.1 /100WBC; Nucleated Red Blood Cells % 0.6 %; Platelet Count 276 10^3/cmm (130-400); Red Blood Count 2.78 10^6/uL (4.1-5.3); Red Cell Distribution Width 14.9 % (12.1-15.1); White Blood Count 15.8 10^3/uL (4.0-10.0)
[2021-03-21 06:11] LABS: Alanine Aminotransferase 34 U/L (0-33); Albumin Level 3.9 g/dL (3.5-5.2); Alkaline Phosphatase 72 IU/L (35-105); Anion Gap 14.9 (5-19); Aspartate Amino Transferase 18 U/L (0-32); Blood Urea Nitrogen 35 mg/dL (6-20); Calcium 8.8 mg/dL (8.5-10.5); Carbon Dioxide 26 mmol/L (22-29); Chloride 103 mmol/L (98-107); Creatine Phosphokinase 154 U/L (26-192); Ferritin 362 ng/mL (15-150); Globulin 2.2 g/dL (1.3-4.6); Glomerular Filtration Rate 75.9 mL/min (90-130); Glucose 148 mg/dL (65-115); Osmolality Calculated 301 mOsm/kg (285-295); Potassium 3.9 mmol/L (3.5-5.1); Sodium 140 mmol/L (136-145); Total Bilirubin 0.5 mg/dL (0.15-1.2); Total Protein 6.1 g/dL (6.6-8.7)
[2021-03-21 06:31] LABS: Glucose Point of Care 147 mg/dL (70-110)
[2021-03-21 06:31] LABS: HIV 1 & 2 Antibody Non-Reactive (Non-Reactiv); HIV 1 & 2 Antigen Non-Reactive (Non-Reactiv); Slide Review Slide Review Perform
[2021-03-21 06:34] LABS: Hepatitis B Surface Antigen Non-Reactive (Nonreactive); Hepatitis C Virus Antibody Non-Reactive (Nonreactive)
[2021-03-21] MEDS: dexamethasone 4 mg Tablet 3 MG PO (07:41)
[2021-03-21] MEDS: cholecalciferol (vitamin D3) 1,000 unit Tablet 1000 UNIT PO (07:41)
[2021-03-21] MEDS: zinc gluconate 50 mg Tablet PO (07:41)
[2021-03-21] MEDS: pantoprazole DR 40 mg Tablet PO (07:42)
[2021-03-21] MEDS: ascorbic acid 500 mg Tablet PO (07:42)
[2021-03-21] MEDS: ferrous gluconate 324 mg Tablet PO (07:42)
[2021-03-21] MEDS: benzonatate 100 mg Capsule 200 MG PO (07:42)
[2021-03-21] MEDS: amlodipine 10 mg Tablet PO (07:43)
[2021-03-21 08:00] VITALS: BP 124/81; PULSE 91; RESP 18; TEMP 36.6; O2SAT 94
[2021-03-21 08:04] VITALS: PULSE 95; RESP 17; O2SAT 95
--- NOTE | 2021-03-21 10:17 | PC.RESP ---
RT Shift Note Frequent safety and respiratory rounds continue. Orders completed as indicated. Patient monitored pre and post treatments throughout shift. Patient [Did.] tolerate treatments appropriately. Condition [DidNotChange]. Patient and/or employer relations representative educated on respiratory treatment and medications. Patient and/or employer relations representative [verbalized understanding]. Will continue to monitor patient progress.
[2021-03-21 11:56] VITALS: BP 129/81; PULSE 111; RESP 18; TEMP 37; O2SAT 98
--- NOTE | 2021-03-21 12:00 | P.DS_ITS ---
Discharge Providers Date of Admission: 03/08/21 03:13 Date of Discharge: March 21, 2021 Attending Provider at Admission: Eboni Wiseman MD Attending Provider at Discharge: Melecio Barrientos MD Primary Care Provider: INGRID Guo Diagnoses at Discharge Discharge Diagnosis (1) Acute respiratory failure with hypoxia: Status: Acute (2) Pneumonia due to 2019-nCoV: Status: Acute (3) Pulmonary embolism: Status: Acute (4) Anemia: Status: Acute (5) Rectus sheath hematoma: Status: Acute (6) Rhabdomyolysis: Status: Acute (7) Essential (primary) hypertension: Status: Chronic (8) Transaminitis: Status: Inactive (9) Obesity, morbid, BMI 50 or higher: Status: Chronic Reason for Visit Reason for Visit: COVID/SOB Hospital Course Hospital Course Mignon Valencia is a 50 year old female with Asthma, Cystitis cystica, hypertension, CAD, SUZIE on CPAP, p/w fever, cough, shortness of breath,generalized bodyache, diarrhea for 5 days. She tested COVID + on March 08, 2021. Had presented to the ER at the time, arranged to have 3lpm supplemental 02 at home and discharged. Returned today with worsening symptoms, 02 sat dipping in the 70s at home. Patient went to the hospital and was started on treatment for COVID-19 pneumonia with protocol for 5 days remdesivir, dexamethasone. CTA was done on admission which was consistent with pulmonary embolism for which she was started on full dose Lovenox. Patient responded well to the treatment and her oxygen supplementation continued to wean down. Her hospitalization was complicated by her developing rectus sheath hematoma most likely secondary to aggressive bout of coughing and muscular strain which was managed by withholding her anticoagulation and monitoring her hemoglobin. She did receive 1 unit of PRBC. Her hemoglobin remained stable. Patient continued to improve. She has been discharged in hemodynamically stable condition advised to continue taking her inhalers for next 2 weeks, vitamin C and zinc for next 2 weeks, pulmonary toilet with incentive spirometry and flutter valve for next 2 weeks, to restart her Eliquis in 1 week on March 28 at 5 mg twice daily and repeat her hemoglobin in a week post initiation of treatment and then continue for next 6 weeks. Physical Exam Narrative: EXAM NARRATIVE: General: No acute distress, AO x3, morbidly obese, on 3 L oxygen supplementation HEENT: PERRLA, pupils bilaterally equal and reactive Chest: Bilateral bronchial breath sounds, coarse crackles present on both lung miller, equal good air entry bilaterally CVS: S1-S2 regular, no murmurs, no tachycardia, no gallops, no rubs Abdomen: Soft, nontender, no organomegaly, bowel sounds present Neuro: No focal deficits, no facial deformity, AO x3, power 5/5 in all limbs Urinary Catheter Management^: Ann: Cath Placed During This Visit: yes Reason for Continuing Indwelling Catheter: Acute Urinary Retention or Obstruction Urinary Catheter Date of Insertion: 03/11/21 Urinary Catheter Time of Insertion: 18:30 Discharge Data Data Completed and Pending: Completed Studies During Hospitalization Category Date Time Status CT abdomen pelvis wo con [id number] Rout ine Cat Scan 03/17/21 15:[address] angio chest PE protcl [id number] Stat Cat Scan 03/10/21 15:18 Completed XR chest 1V claudia ble [id number] Q48H Exams 03/20/21 06:00 Completed XR chest 1V claudia ble [id number] Routine Exams 03/11/21 07:00 Completed XR chest 1V claudia ble [id number] Routine Exams 03/17/21 11:37 Completed XR chest 1V claudia ble [id number] Routine Exams 03/20/21 18:47 Completed XR chest 1V claudia ble [id number] Stat Exams 03/08/21 02:13 Completed CV. echo complete * [id number] Stat Ultrasound 03/10/21 15:18 Completed US renal BI* [id number] Routine Ultrasound 03/10/21 15:37 Completed Pending at discharge Category Date Time Status XR chest 1V claudia ble 98703 Q48H Exams 03/22/21 06:00 Ordered XR chest 1V claudia ble 30647 Q48H Exams 03/24/21 06:00 Ordered C Reactive Protei n Q48H Lab 03/22/21 04:00 Ordered Creatine Phosphok inase AM LABS Lab 03/22/21 04:00 Ordered D Dimer Q48H Lab 03/22/21 04:00 Ordered Erythrocyte Sedim entation Rate Q48H Lab 03/22/21 04:00 Ordered Ferritin AM LABS Lab 03/22/21 04:00 Ordered Labs from last 24 hours 03/21/21 03/21/21 03/21/21 06:23 04:45 04:45 WBC RBC Hgb Hct MCV MCH MCHC RDW Plt Count MPV Neut % (Auto) Lymph % (Auto) [place] % (Auto) Eos % (Auto) Baso % (Auto) Neut # (Auto) Lymph # (Auto) [place] # (Auto) Eos # (Auto) Baso # (Auto) Nucleated RBC % (a uto) Nucleated RBCs # Sodium Potassium Chloride Carbon Dioxide Anion Gap BUN Creatinine GFR Calculation Glucose POC Glucose 147 H Calculated Osmolal ity Calcium Ferritin Total Bilirubin AST ALT Alkaline Phosphata se Creatine Kinase Total Protein Albumin Globulin Hepatitis A IgM Ab Hep Bs Antigen Non-reactive Hep Bs Antibody Hep B Core Total A b Hepatitis C Antibo dy Non-reactive HIV 1&2 Ab & HIV 1 Ag Cancelled HIV 1&2 Antibody Cancelled 03/21/21 03/21/21 03/21/21 04:45 04:45 04:45 WBC RBC Hgb Hct MCV MCH MCHC RDW Plt Count MPV Neut % (Auto) Lymph % (Auto) [place] % (Auto) Eos % (Auto) Baso % (Auto) Neut # (Auto) Lymph # (Auto) [place] # (Auto) Eos # (Auto) Baso # (Auto) Nucleated RBC % (a uto) Nucleated RBCs # Sodium Potassium Chloride Carbon Dioxide Anion Gap BUN Creatinine GFR Calculation Glucose POC Glucose Calculated Osmolal ity Calcium Ferritin Total Bilirubin AST ALT Alkaline Phosphata se Creatine Kinase Total Protein Albumin Globulin Hepatitis A IgM Ab Cancelled Hep Bs Antigen Cancelled Hep Bs Antibody Cancelled Hep B Core Total A b Cancelled Hepatitis C Antibo dy Cancelled HIV 1&2 Ab & HIV 1 Ag Non-reactive Cancelled HIV 1&2 Antibody Non-reactive Cancelled 03/21/21 03/21/21 03/20/21 04:45 04:45 20:46 WBC 15.8 H RBC 2.78 L Hgb 8.5 L Hct 26.7 L MCV 96.0 MCH 30.6 MCHC 31.8 RDW 14.9 Plt Count 276 MPV 10.2 Neut % (Auto) 72.3 Lymph % (Auto) 15.6 [place] % (Auto) 6.0 Eos % (Auto) 0.4 Baso % (Auto) 0.1 Neut # (Auto) 11.38 H Lymph # (Auto) 2.5 [place] # (Auto) 1.0 H Eos # (Auto) 0.1 Baso # (Auto) 0.0 Nucleated RBC % (a uto) 0.6 Nucleated RBCs # 0.1 Sodium 140 Potassium 3.9 Chloride 103 Carbon Dioxide 26 Anion Gap 14.9 BUN 35 H Creatinine 0.8 GFR Calculation 75.9 L Glucose 148 H POC Glucose 232 H Calculated Osmolal ity 301 H Calcium 8.8 Ferritin 362 H Total Bilirubin 0.5 AST 18 ALT 34 H Alkaline Phosphata se 72 Creatine Kinase 154 Total Protein 6.1 L Albumin 3.9 Globulin 2.2 Hepatitis A IgM Ab Hep Bs Antigen Hep Bs Antibody Hep B Core Total A b Hepatitis C Antibo dy HIV 1&2 Ab & HIV 1 Ag HIV 1&2 Antibody 03/20/21 03/20/21 16:57 15:17 WBC RBC Hgb 8.9 L Hct 28.2 L MCV MCH MCHC RDW Plt Count MPV Neut % (Auto) Lymph % (Auto) [place] % (Auto) Eos % (Auto) Baso % (Auto) Neut # (Auto) Lymph # (Auto) [place] # (Auto) Eos # (Auto) Baso # (Auto) Nucleated RBC % (a uto) Nucleated RBCs # Sodium Potassium Chloride Carbon Dioxide Anion Gap BUN Creatinine GFR Calculation Glucose POC Glucose 258 H Calculated Osmolal ity Calcium Ferritin Total Bilirubin AST ALT Alkaline Phosphata se Creatine Kinase Total Protein Albumin Globulin Hepatitis A IgM Ab Hep Bs Antigen Hep Bs Antibody Hep B Core Total A b Hepatitis C Antibo dy HIV 1&2 Ab & HIV 1 Ag HIV 1&2 Antibody Addt'l Data from Hospital Stay: Laboratory Results WBC 15.8 10^3/uL (4.0 -10.0) H 03/21/21 04:45 RBC 2.78 10^6/uL (4.1 -5.3) L 03/21/21 04:45 Hgb 8.5 g/dL (11.5-15 .3) L 03/21/21 04:45 Hct 26.7 % (37.0-47.0 ) L 03/21/21 04:45 MCV 96.0 fl (81-99) 03/21/21 04:45 MCH 30.6 pg (28.0-34. 0) 03/21/21 04:45 MCHC 31.8 g/dL (30.0-3 6.0) 03/21/21 04:45 RDW 14.9 % (12.1-15.1 ) 03/21/21 04:45 Plt Count 276 10^3/cmm (130 -400) 03/21/21 04:45 MPV 10.2 fL (7.4-10.4 ) 03/21/21 04:45 Neut % (Auto) 72.3 % 03/21/21 04:45 Lymph % (Auto) 15.6 % 03/21/21 04:45 [place] % (Auto) 6.0 % 03/21/21 04:45 Eos % (Auto) 0.4 % 03/21/21 04:45 Baso % (Auto) 0.1 % 03/21/21 04:45 Neut # (Auto) 11.38 10^3/uL (1. 8-7.7) H 03/21/21 04:45 Lymph # (Auto) 2.5 10^3/uL (0.8- 4.8) 03/21/21 04:45 [place] # (Auto) 1.0 10^3/uL (0.2- 0.9) H 03/21/21 04:45 Eos # (Auto) 0.1 10^3/uL (0.0- 0.8) 03/21/21 04:45 Baso # (Auto) 0.0 10^3/uL (0.0- 0.1) 03/21/21 04:45 Nucleated RBC % (a uto) 0.6 % 03/21/21 04:45 Total Counted 100 (0-100) 03/08/21 02:40 Atypical Lymphs % 2.0 % (0-5) 03/08/21 02:40 Absolute Neutrophi ls 3.5 10^3/cmm (1.4 -6.5) 03/08/21 02:40 Segmented Neutroph ils 52 % 03/08/21 02:40 Abs Segm Neuts (Ma n) 2.5 10/cmm (1.6-7 .1) 03/08/21 02:40 Band Neutrophils 19.0 % 03/08/21 02:40 Abs Band Neuts (Ma n) 0.9 10^3/cmm (0.0 -1.2) 03/08/21 02:40 Absolute Lymphocyt es 1.2 10^3/cmm (1.2 -3.4) 03/08/21 02:40 Lymphocytes (Manua l) 22 % 03/08/21 02:40 Monocytes (Manual) 5.0 % 03/08/21 02:40 Absolute Monocytes 0.2 10^3/cmm (0.1 -0.6) 03/08/21 02:40 Eosinophils (Manua l) 0 % 03/08/21 02:40 Absolute Eosinophi ls 0.0 10^3/cmm (0.0 -0.7) 03/08/21 02:40 Basophils (Manual) 0.0 % 03/08/21 02:40 Absolute Basophils 0.0 10^3/cmm (0.0 -0.2) 03/08/21 02:40 Nucleated RBCs # 0.1 /100WBC 03/21/21 04:45 Platelet Estimate Normal (Normal) 03/08/21 02:40 ESR 16 mm/hr (0-15) H 03/20/21 04:45 PT 14.60 SECONDS (12 .1-14.9) 03/13/21 05:35 INR 1.10 (0.8-1.2) 03/13/21 05:35 D-Dimer 1.05 ug/mIFEU (0- 0.59) H 03/20/21 04:45 Specimen Type Arterial 03/12/21 05:40 Sample Site Radial, right 03/12/21 05:40 ABG pH 7.39 (7.35-7.45) 03/12/21 05:40 ABG pCO2 41.8 mmHg (35-45) 03/12/21 05:40 ABG pO2 77.4 mmHg (80.0-1 00.0) L 03/12/21 05:40 ABG HCO3 25.3 mmol/L (22-2 6) 03/12/21 05:40 ABG Base Excess 0.2 mmol/L (-2.0- 2.0) 03/12/21 05:40 Anand Test Pos 03/12/21 05:40 Hematocrit 41.4 % (37-47) 03/12/21 05:40 O2 Delivery Device Bipap 03/12/21 05:40 O2 Liters/Min 4.0 % 03/08/21 02:52 FiO2 60.0 % 03/12/21 05:40 Special Assemblies Supervisor ID [email or web address] 03/12/21 05:40 Sodium 140 mmol/L (136-1 45) 03/21/21 04:45 Potassium 3.9 mmol/L (3.5-5 .1) 03/21/21 04:45 Chloride 103 mmol/L (98-10 7) 03/21/21 04:45 Carbon Dioxide 26 mmol/L (22-29) 03/21/21 04:45 Anion Gap 14.9 (5-19) 03/21/21 04:45 BUN 35 mg/dL (6-20) H 03/21/21 04:45 Creatinine 0.8 mg/dL (0.5-0. 9) 03/21/21 04:45 GFR Calculation 75.9 mL/min (90-1 30) L 03/21/21 04:45 Glucose 148 mg/dL (65-115 ) H 03/21/21 04:45 POC Glucose 147 mg/dL (70-110 ) H 03/21/21 06:23 Estimat Average Gl ucose 151 03/20/21 04:45 Hemoglobin A1c 6.9 % (4.0-6.0) H 03/20/21 04:45 Calculated Osmolal ity 301 mOsm/kg (285- 295) H 03/21/21 04:45 Lactic Acid 0.5 mmol/L (0.5-2 .2) 03/08/21 02:40 Lactate 1.6 mmol/L (0.5-2 .2) 03/13/21 05:35 Calcium 8.8 mg/dL (8.5-10 .5) 03/21/21 04:45 Phosphorus 2.7 mg/dL (2.5-4. 5) 03/13/21 05:35 Magnesium 2.8 mg/dL (1.7-2. 3) H 03/18/21 05:45 Iron 149 ug/dL (37-145 ) H 03/19/21 05:26 TIBC 246 mcg/dl 03/19/21 05:26 % Saturation 60.5 % (20-50) H 03/19/21 05:26 Unsat Iron Binding 97 ug/dL (112-347 ) L 03/19/21 05:26 Ferritin 362 ng/mL (15-150 ) H 03/21/21 04:45 Total Bilirubin 0.5 mg/dL (0.15-1 .2) 03/21/21 04:45 AST 18 U/L (0-32) 03/21/21 04:45 ALT 34 U/L (0-33) H 03/21/21 04:45 Alkaline Phosphata se 72 IU/L (35-105) 03/21/21 04:45 Creatine Kinase 154 U/L (26-192) 03/21/21 04:45 C-Reactive Protein 0.7 mg/L (0.0-4.9 ) 03/20/21 04:45 NT-Pro-B Natriuret Pep 90 pg/mL (0-125) 03/19/21 05:26 Total Protein 6.1 g/dL (6.6-8.7 ) L 03/21/21 04:45 Albumin 3.9 g/dL (3.5-5.2 ) 03/21/21 04:45 Globulin 2.2 g/dL (1.3-4.6 ) 03/21/21 04:45 Procalcitonin 0.08 ng/mL (0-0.5 ) 03/19/21 05:26 TSH 1.35 uIU/mL (0.27 -4.20) 03/19/21 05:26 Vancomycin Trough 17.2 ug/mL (10-15 ) H 03/11/21 14:14 Random Vancomycin 28.8 ug/mL (20.0- 40.0) 03/14/21 01:57 Hepatitis A IgM Ab Cancelled 03/21/21 04:45 Hep Bs Antigen Cancelled 03/21/21 04:45 Hep Bs Antigen Non-reactive (No nreactive) 03/21/21 04:45 Hep Bs Antibody Cancelled 03/21/21 04:45 Hep B Core Total A b Cancelled 03/21/21 04:45 Hepatitis C Antibo dy Cancelled 03/21/21 04:45 Hepatitis C Antibo dy Non-reactive (No nreactive) 03/21/21 04:45 HIV 1&2 Ab & HIV 1 Ag Cancelled 03/21/21 04:45 HIV 1&2 Ab & HIV 1 Ag Cancelled 03/21/21 04:45 HIV 1&2 Ab & HIV 1 Ag Non-reactive (No n-Reactiv) 03/21/21 04:45 HIV 1&2 Antibody Cancelled 03/21/21 04:45 HIV 1&2 Antibody Cancelled 03/21/21 04:45 HIV 1&2 Antibody Non-reactive (No n-Reactiv) 03/21/21 04:45 Blood Type O Negative 03/19/21 11:35 Rho(D) Type Negative 03/19/21 11:35 Antibody Screen Negative 03/19/21 11:35 Crossmatch See Detail 03/19/21 11:35 Impressions Chest CTA 03/10/21 15:18 IMPRESSION: 1. Positive for small volume pulmonary embolism. 2. There is no convincing CT angiogram evidence of acute significant right heart strain. 3. Widespread predominantly ground-glass airspace disease significantly worse than prior. 4. Commonly reported imaging features of COVID-19 pneumonia are present. Other processes such as influenza pneumonia and organizing pneumonia, as can be seen with drug toxicity and connective tissue disease, can cause a similar imaging pattern. (Reference: William) REFERENCES: William Rawls, et al., Radiological Society of [place] Expert Consensus Statement on Reporting Chest CT Findings Related to COVID-19. Endorsed by the Society of Thoracic Radiology, the [place] [employer], and RSNA. Published September 22, 2019. Radiation Dose CTDIVOL = (mGy): DLP = 559.48 (mGy-cm) ADDENDUM: 03/10/212125 THIS REPORT CONTAINS FINDINGS THAT MAY BE CRITICAL TO PATIENT CARE. The findings were verbally communicated via telephone conference with Dr. Wiseman at 9:25 PM CDT on 03/10/2021. The findings were acknowledged and understood. Radiation Dose CTDIVOL = (mGy): DLP = 559.48 (mGy-cm) Renal Ultrasound 03/10/21 15:37 IMPRESSION: 1. Negative for renal obstruction. 2. Possibly bilateral nonobstructing kidney stones. Abdomen/Pelvis CT 03/17/21 15:07 IMPRESSION: 1. Large right side rectus sheath hematoma in the abdomen and pelvis 2. Hepatomegaly without focal hepatic abnormality. 3. Nonobstructing caliceal stones in both kidneys 4. Subcutaneous soft tissue contusion right abdominal wall . 5. Bilateral lower lung interstitial densities Radiation Dose CTDIVOL = (mGy): DLP = 1497.94 (mGy-cm) Chest X-Ray 03/20/21 18:47 Impression: No change in bilateral pulmonary opacities and cardiomegaly. Microbiology 03/14/21 12:45 Nose MRSA Culture - Final 03/08/21 04:30 Stool Stool Lactoferrin - Final 03/08/21 04:30 Stool Enteric Pathogens (PCR) - Final 03/08/21 04:30 Stool Parasite Antigen Panel - Final 03/08/21 04:30 Stool C.difficile Toxin B Gene (PCR) - Final 03/08/21 04:30 Stool Occult Blood (FIT) - Final Vitals: Last Vital Signs Temp 98.6 F 03/21/21 11:56 Pulse 111 H 03/21/21 11:56 Resp 18 03/21/21 11:56 BP 129/81 03/21/21 11:56 Pulse Ox 98 03/21/21 11:56 Discharge Plan Discharge Patient Disposition: Home Condition: Stable Prescriptions: New amlodipine 10 mg Tablet 10 mg PO DAILY 30 Days Qty: 30 RF: 0 Eliquis 5 mg Tablet 5 mg PO BID@0900,2100 30 Days Qty: 60 RF: 0 Advair Diskus 250-50 mcg/dose Blister With Device 1 puff inhalation BID.RESPIRATORY 14 Days Qty: 28 RF: 0 Vitamin C 500 mg Tablet 500 mg PO BID 14 Days Qty: 28 RF: 0 benzonatate 100 mg Capsule 200 mg PO TID 14 Days Qty: 84 RF: 0 pantoprazole 40 mg Tablet,Delayed Release (Dr/Ec) 40 mg PO BID 14 Days Qty: 28 RF: 0 codeine-guaifenesin 10-100 mg/5 mL Liquid 10 ml PO Q4H PRN (Reason: Cough) 10 Days Qty: 300 RF: 0 ferrous gluconate 324 mg (37.5 mg iron) Tablet 324 mg PO BIDWM 30 Days Qty: 60 RF: 0 dexamethasone 6 mg tablet 3 mg PO DAILY 7 Days Qty: 4 RF: 0 Spiriva with HandiHaler 18 mcg capsule, w/inhalation device 1 cap inhalation DAILY 14 Days Qty: 14 RF: 0 metformin 850 mg tablet 850 mg PO DAILY Qty: 30 RF: 0 Continued Micro-C Tabs 1 tab PO DAILY RF: 0 Vitamin B-12 1 tab PO DAILY RF: 0 Zinc Suspension 2 ml PO DAILY RF: 0 Zofran 4 mg tablet 4 mg PO Q8H PRN (Reason: Nausea And Vomiting) RF: 0 aspirin 81 mg Tablet,Delayed Release (Dr/Ec) 81 mg PO PRN PRN (Reason: Pain) RF: 0 Changed valsartan 160 mg tablet 80 mg PO DAILY Qty: 0 RF: 0 Discontinued cat's claw (dakota virkosa) Liquid See Rx Instructions .ROUTE .COMPLEX RF: 0 Lemon [place] 2 ml PO DAILY RF: 0 [place]lein Tabs 1 tab PO DAILY RF: 0 Red Root 1 ml PO DAILY RF: 0 Discharge Orders: Discharge Order (Routine); Ordered 03/21/21 Ordered By: Melecio Barrientos Referrals: Debbie Remy, INGRID [Primary Care Provider] - 03/28/21 11:20 am Discharge Diet: Cardiac and Diabetic Discharge Activity: Resume usual activity Patient Instructions: Benzonatate (By mouth), Amlodipine (By mouth), Metformin (By mouth), Dexamethasone (By mouth), Pantoprazole (By mouth), Fluticasone/Salmeterol (By breathing), Tiotropium (By breathing), Apixaban (By mouth), Pulmonary Embolism (GEN), Hypoxia (GEN), Opioid Safety, Using Oxygen at Home Activity Restrictions/Additional Instructions: Please follow-up with your primary care provider within next 1 week. As discussed she can start her Eliquis again in 1 week on March 28. He will need to be on Eliquis for next 6 months at the least. After starting Eliquis recheck hemoglobin in 1 week. Advised to take inhalation treatment with Advair and Spiriva daily. Advised to continue working with incentive spirometry and flutter valve while at home. Advised to continue taking dexamethasone 3 mg for next 7 days. Advised to follow-up with his primary care provider within the next 4 to 7 days. Can take his COVID-19 vaccination in 3 months. Advised to continue following social distancing and isolation protocol for next 10 days. Advised to come back to the ER if fever of more than 101 Fahrenheit, more difficulty breathing than usual or requiring higher oxygen supplementation. Please try not to lift weight more than 10 lbs for next 2 weeks Discharge Attestations Time Spent in Discharge Care*: greater than 30 min Specific Discharge Activities: educating patient, educating and/or supporting family/caregiver, discussing with pcp/other providers, discussing with case supervisor/social workers/dc planners, documenting/other paperwork and evaluating patient/reviewing data Status at Discharge: Cognitive status at discharge: cognitively intact , Behavioral status at discharge: cooperative , Functional status at discharge: uses cane/walker Overall status at discharge: patient is progressing back to baseline Quality Metrics Clinical Quality Measures During this hospital stay, did patient experience: VTE Contraindication to Overlap Therapy: Treatment Delay - patient VTE Discharge Education: Education about anticoagulant therapy/Care Notes given Deep Vein Thrombosis/Pulmonary Embolism Present on Admission: Yes Documentation of Mechanical Device: Class I compression hosiery Coding Level of Care Code Acute Chg FW DC note Diagnoses Acute respiratory failure with hypoxia J96.01 Pneumonia due to 2019-nCoV U07.1; J12.82 Pulmonary embolism I26.99 Anemia D64.9 Rectus sheath hematoma S30.1XXA Rhabdomyolysis M62.82 Essential (primary) hypertension I10 Transaminitis R74.01 Obesity, morbid, BMI 50 or higher E66.01
[2021-03-21 12:08] LABS: Glucose Point of Care 296 mg/dL (70-110)
--- NOTE | 2021-03-22 11:17 | PC.SOCIAL ---
discharge follow up call made, spoke with patient. new medications picked up from the pharmacy, patient is taking as directed. patient is aware to not start taking Eliquis until 03-28, and that she will need to take for 6 months, and to have hemoglobin drawn 1 week after she starts taking eliquis. she will have labs drawn with pcp. patient is aware of date and time for follow up with pcp. discussed social distancing and quarantine for the next 10 days. discussed not lifting more than 10 lbs for the next 2 weeks. patient is using o2 at 3l, reports o2 99% at rest.
--- NOTE | 2021-03-23 11:21 | PC.SOCIAL ---
Patient called with questions regarding amlodipine once called her back she felt she understood. We discussed meds further and she did not realize she was to be taking the 80mg of Valsartan instead of 160mg. verified with pharmacy that these can not be scored so called in 30 days supply of Valsartan 80mg once daily as ordered. Patient educated any meds that will continue will need new scripts by PCP. Also we discussed again regarding the Eliquis and after it is restarted need Hemoglobin in one week. She verbalized understanding. We reviewed the herbal meds were stopped and not to start taking them again unless reviewed by a provider. She voiced understanding.
== END 2021-03-21 14:11 | disposition home or self-care (01) | DRG 177 ==
LOC: ER 03:06 → MEDSURG 03:41 → ICU 03-10 20:51 → MEDSURG 03-17 16:50
PROVIDERS: Family Medicine; Internal Medicine; Admitting Provider Student in an Organized Health Care Education/Training Program; Emergency Provider Emergency Medicine; PCP Nurse Practitioner; Visit Provider Student in an Organized Health Care Education/Training Program
DX: U07.1 COVID-19 (principal); J12.82 Pneumonia due to coronavirus disease 2019; I26.99 Other pulmonary embolism without acute cor pulmonale; J80 Acute respiratory distress syndrome; N17.0 Acute kidney failure with tubular necrosis; Z68.43 Body mass index [BMI] 50.0-59.9, adult; M62.82 Rhabdomyolysis; D62 Acute posthemorrhagic anemia; J45.909 Unspecified asthma, uncomplicated; I12.9 Hypertensive chronic kidney disease with stage 1 through stage 4 chronic kidney disease, or unspecified chronic kidney disease; N18.9 Chronic kidney disease, unspecified; Z87.442 Personal history of urinary calculi; E66.01 Morbid (severe) obesity due to excess calories; G47.33 Obstructive sleep apnea (adult) (pediatric); Z96.651 Presence of right artificial knee joint; Z87.891 Personal history of nicotine dependence; N30.81 Other cystitis with hematuria; I25.10 Atherosclerotic heart disease of native coronary artery without angina pectoris; I95.9 Hypotension, unspecified; S30.1XXA Contusion of abdominal wall, initial encounter; X58.XXXA Exposure to other specified factors, initial encounter
CPT/HCPCS: 36415; 36416; 36430; 36600; 51702; 71045; 71275; 74176; 76770; 80053; 80202; 82274; 82550; 82728; 82803; 82962; 83036; 83540; 83550; 83605; 83630; 83735; 83880; 84100; 84145; 84443; 85007; 85014; 85018; 85025; 85378; 85610; 85651; 86140; 86803; 86850; 86900; 86920; 87340; 87493; 87506; 87641; 87806; 93306; 94640; 94660; 96372; 96374; 97116; 97161; 99285; J0360; J0456; J0692; J0696; J1100; J1650; J1815; J1940; J1956; J2060; J2405; J3262; J3370; J3535; J7030; J7050; J7626; J8540; P9016; Q9967

== ENCOUNTER → 2021-03-28 12:09 | Outpatient (BNVA) | payer SELFPAY | PROVIDERS: PCP Nurse Practitioner; Visit Provider Nurse Practitioner | DX: D64.9 Anemia, unspecified (principal); I26.99 Other pulmonary embolism without acute cor pulmonale | CPT/HCPCS: 80048; 85025 ==

== ENCOUNTER 2021-03-31 10:03 | Emergency (ER) | payer OTHER, SELFPAY ==
[2021-03-31] VITALS (7 sets, daily range): BP systolic 131–170; BP diastolic 73–98; PULSE 82–110; RESP 15–22; TEMP 36–36.8; O2SAT 95–98; BMI 51.5
[2021-03-31 11:32] LABS: Basophils % 0.2 %; Eosinophils # 0.5 10^3/uL (0.0-0.8); Eosinophils % 4.5 %; Hematocrit 34.6 % (37.0-47.0); Hemoglobin 10.9 g/dL (11.5-15.3); Lymphocytes # 1.5 10^3/uL (0.8-4.8); Lymphocytes % 14.1 %; Mean Corpuscular HGB Conc 31.5 g/dL (30.0-36.0); Mean Corpuscular Hemoglobin 32.5 pg (28.0-34.0); Mean Corpuscular Volume 103.3 fl (81-99); Mean Platelet Volume 9.6 fL (7.4-10.4); Monocytes # 0.8 10^3/uL (0.2-0.9); Monocytes % 7.5 %; Neutrophils # 7.71 10^3/uL (1.8-7.7); Neutrophils % 72.7 %; Nucleated Red Blood Cells % 0 %; Platelet Count 149 10^3/cmm (130-400); Red Blood Count 3.35 10^6/uL (4.1-5.3); Red Cell Distribution Width 21.6 % (12.1-15.1); White Blood Count 10.6 10^3/uL (4.0-10.0)
[2021-03-31 11:58] LABS: Alanine Aminotransferase 35 U/L (0-33); Albumin Level 3.9 g/dL (3.5-5.2); Alkaline Phosphatase 100 IU/L (35-105); Aspartate Amino Transferase 18 U/L (0-32); Blood Urea Nitrogen 14 mg/dL (6-20); Carbon Dioxide 27 mmol/L (22-29); Chloride 103 mmol/L (98-107); Globulin 2.1 g/dL (1.3-4.6); Glomerular Filtration Rate 130.6 mL/min (90-130); Glucose 133 mg/dL (65-115); Lipase 80 U/L (13-60); NT Pro B Type Natriuretic Pept 49 pg/mL (0-125); Osmolality Calculated 292 mOsm/kg (285-295); Sodium 140 mmol/L (136-145); Total Bilirubin 0.8 mg/dL (0.15-1.2)
--- NOTE | 2021-03-31 12:10 | XRR_ITS ---
PROCEDURE INFORMATION: Exam: XR Chest Exam date and time: 03/31/2021 12:10 PM Age: 50 years old Clinical indication: Dyspnea TECHNIQUE: Imaging protocol: XR of the chest. Views: 1 view. COMPARISON: CR XR chest 1V portable [id number] 03/20/2021 6:48 PM FINDINGS: Lungs: Multifocal patchy bilateral pulmonary infiltrates appear mildly less prominent when compared to the prior study. Pleural spaces: Unremarkable. No pleural effusion. No pneumothorax. Heart/Mediastinum: Unremarkable. No cardiomegaly. Bones/joints: Unremarkable. XR/XR chest 1V portable [id number] IMPRESSION: Multifocal patchy bilateral pulmonary infiltrates are less prominent when compared to the prior study.
--- NOTE | 2021-03-31 12:10 | ECG_ITS ---
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1970 Requested By: Jessica Dickerson Order Number: [id number] Reading MD: CHARO YAO Measurements Intervals [place] Rate: 82 P: 36 MO: 138 QRS: -27 QRSD: 133 T: -5 QT: 341 QTc: 400 Interpretive Statements SINUS RHYTHM BORDERLINE LEFT AXIS DEVIATION [QRS AXIS < -20] RIGHT BUNDLE BRANCH BLOCK [120+ ms QRS DURATION, UPRIGHT V1, 40+ ms S IN I/aVL/V4/V5/V6] MODERATE VOLTAGE CRITERIA FOR LVH, CONSIDER NORMAL VARIANT [MEETS CRITERIA IN ONE OF: R(aVL), S(V1), R(V5), R(V5/V6)+S(V1)] Compared to ECG 03/07/2021 14:04:58 No significant changes Electronically Signed On 03-31-2021 18:24:32 CDT by CHARO YAO [id number]
--- NOTE | 2021-03-31 12:10 | CTR_ITS ---
PROCEDURE INFORMATION: Exam: CT Abdomen And Pelvis With Contrast Exam date and time: 03/31/2021 12:10 PM Age: 50 years old Clinical indication: Abdominal pain; Prior surgery; Surgery type: Appy; Additional info: Evluate for abd pain TECHNIQUE: Imaging protocol: Computed tomography of the abdomen and pelvis with contrast. Radiation optimization: All CT scans at this facility use at least one of these dose optimization techniques: automated exposure control; mA and/or kV adjustment per patient size (includes targeted exams where dose is matched to clinical indication); or iterative reconstruction. Contrast material: OMNI 300; Contrast volume: 95 ml; Contrast route: INTRAVENOUS (IV); COMPARISON: CT abdomen pelvis wo con [id number] 03/17/2021 5:02 PM RADIATION DOSE METRICS: Total DLP (mGy-cm): 1822.12 FINDINGS: Lungs: Multifocal patchy opacities at the lung bases are less prominent when compared to the prior CT scan. Liver: There are benign-appearing calcifications in the liver. Liver is enlarged measuring 21.5 cm.There is a diffuse decrease in hepatic parenchymal density, consistent with fatty infiltration. Gallbladder and bile ducts: Normal. No calcified stones. No ductal dilation. Pancreas: Normal. No ductal dilation. Spleen: Normal. No splenomegaly. Adrenal glands: There is a 10 mm focal hypodense mass in the right adrenal gland, consistent in appearance and density with a benign adrenal adenoma. This is unchanged from the prior study. Kidneys and ureters: Left renal scarring. Bilateral nonobstructing renal calculi. Stomach and bowel: Unremarkable. No obstruction. No mucosal thickening. Appendix: No evidence of appendicitis. Intraperitoneal space: Unremarkable. No free air. No significant fluid collection. Vasculature: Unremarkable. No abdominal aortic aneurysm. Lymph nodes: Unremarkable. No enlarged lymph nodes. Urinary bladder: Bladder wall is somewhat ill-defined and there is minimal stranding in the pericystic fat. Reproductive: Unremarkable as visualized. Bones/joints: Unremarkable. No acute fracture. Soft tissues: Right side rectus sheath hematoma have decreased in size when compared to the prior study. Edema and/or hematoma is present in the surrounding subcutaneous soft tissues. CT/CT abdomen pelvis w con* [id number] IMPRESSION: 1. Right side rectus sheath hematoma has decreased in size when compared to the prior study. There is edema and/or hematoma in the surrounding subcutaneous soft tissues. 2. Bladder wall is somewhat ill-defined and there is minimal stranding in the pericystic fat. Please correlate clinically if there is suspicion for acute cystitis. 3. Multifocal patchy opacities at the lung bases have improved when compared to the prior CT scan. Differential includes residual pneumonia and/or scarring. 4. Hepatomegaly with fatty infiltration of the liver. COMMENTS: Consistent with the [employer]'s Incidental Findings Committee white paper (J Am Mike Radiol 2017): Any incidental adrenal lesion less than or equal to 1 cm is likely benign. No follow-up imaging is recommended for these lesions per consensus recommendations based on imaging criteria. Further lab evaluation could be pursued if warranted based on clinical findings. Radiation Dose CTDIVOL = (mGy): DLP = 1822.12 (mGy-cm)
--- NOTE | 2021-03-31 12:22 | ED_ITS ---
HPI - General Adult General: Chief complaint: COVID symptoms Stated complaint: Covid+ Time Seen by Provider: 03/31/21 10:06 History of Present Illness: HPI narrative: Patient is a 50-year-old female w/ hx of obesity, recurrent kidney stones who was recently discharged from the ICU 03/21/2021 for Covid pneumonia presenting to the emergency room with 1 days of lower extremity swelling, decreased urination, cough, dyspnea at night, and right-sided abdominal pain. Patient says that all the symptoms started yesterday and she is worried that she may be decompensating from Covid again. She has no other focal complaints. Of note, when patient was admitted to hospital for Covid pneumonia, she was found to have significant right-sided abdominal bruise and intraabdominal bleeding. Today, she is concerned that she may have more bleeding given the spasming type pain that she is experiencing since this morning. Onset: 1 day ago Duration:1 day Location:home Severity:moderate Review of Systems Narrative: Constitutional: No fever, no chills. HEENT: No vision changes CV: No chest pain, no palpitations PULM: no cough, no dyspnea. GI: No abdominal pain, no N/V/D. : No dysuria MSKEL: No muscle pain SKIN: No new rashes, no lesions. NEURO: No headache, no focal weakness. HEME: No visible bruises PSYCH: Normal mood PFSH ED PFSH: Medical History Asthma Cystitis cystica Essential (primary) hypertension History of stent insertion of renal artery BILATERAL Hydroureteronephrosis Left ureteral calculus Obesity, morbid, BMI 50 or higher SUZIE on CPAP Pneumonia due to 2018- Renal calculus Retained ureteral stent Surgical History History of knee replacement Right 2000 Hx of appendectomy Family History Other Adopted No pertinent family history Social History Second hand smoke exposure: No Smoking risk assessment/counseling performed?: No Alcohol intake: current Alcohol intake frequency: holidays/special occasions only Desire information about alcohol rehabilitation?: No Counseling given: No Desire information about substance/drug rehabilitation?: No Counseling given: No Adopted: No Caregiver/support person: No Lives independently: Yes Household members: spouse Housing: House Marital status: Number of children: 2 service: No Current occupational status: unemployed Current occupation: Works from home History of recent travel: No Current gender identity: Female Special ching needs: Yes Female Reproductive History: Date of last menstrual period: 01/28/17 Physical Exam Narrative: EXAM NARRATIVE: Head: Atraumatic Eyes: PERRL, conjunctiva without injection ENT: Mucous membrane moist NECK: Supple, ROM intact LUNGS: +Coarse breath sounds b/l CV: RRR ABDOMEN: Soft, nontender in all quadrants EXTREMITY: Normal ROM, 1+ pitting edema b/l below the knees SKIN: No rash or erythema NEURO: Awake and alert, no focal motor deficits PSYCH: Normal mood and affect Course Vital Signs: Vital signs: Vital Signs Temperature 96.8 F L 03/31/21 12:26 Pulse Rate 97 03/31/21 15:52 Respiratory Rate 18 03/31/21 15:52 Blood Pressure 170/98 03/31/21 15:52 Pulse Oximetry 98 03/31/21 15:52 MDM - General Adult MDM Narrative: Medical decision making narrative: Patient is a 50-year-old female who presents the emergency room with decreased urinary output, cough, dyspnea at night, lower extremity swelling. On exam, patient has 2+ pitting edema bilaterally. Lung appear coarse. Work-up today showed lipase of 86, chronic changes including lung infiltrates, rectus sheath hematoma improved from prior changes. Creatinine within normal limit today. proBNP also appears to be within normal limit. Is unclear what is the source of ankle swelling at this point time. In the ER, patient tolerated PO without any difficulties. Continues to HDS without any desaturations. From imaging standpoint, findings are improving and patient elects to go home. Has some bladder sandra-cystitic changes. However patient has no urinary symptoms and UA is negative. Will not treat as UTI today. Disposition: Discharge. Patient is given strict return precautions for any worsening nausea/vomiting, fever/chills, or any new or concerning complaints. Lab Data: Labs: Lab Results 03/31/21 03/31/21 03/31/21 11:20 11:20 11:20 WBC 10.6 10^3/uL H 10 ^3/uL (4.0-10.0) RBC 3.35 10^6/uL L 10 ^6/uL (4.1-5.3) Hgb 10.9 g/dL L g/dL (11.5-15.3) Hct 34.6 % L % (37.0-47.0) MCV 103.3 fl H fl (81-99) MCH 32.5 pg pg (28.0-34.0) MCHC 31.5 g/dL g/dL (30.0-36.0) RDW 21.6 % H % (12.1-15.1) Plt Count 149 10^3/cmm 10^3 /cmm (130-400) MPV 9.6 fL fL (7.4-10.4) Neut % (Auto) 72.7 % % Lymph % (Auto) 14.1 % % [place] % (Auto) 7.5 % % Eos % (Auto) 4.5 % % Baso % (Auto) 0.2 % % Neut # (Auto) 7.71 10^3/uL H 10 ^3/uL (1.8-7.7) Lymph # (Auto) 1.5 10^3/uL 10^3/ uL (0.8-4.8) Ellsworth # (Auto) 0.8 10^3/uL 10^3/ uL (0.2-0.9) Eos # (Auto) 0.5 10^3/uL 10^3/ uL (0.0-0.8) Baso # (Auto) 0.0 10^3/uL 10^3/ uL (0.0-0.1) Nucleated RBC % (a uto) 0 % % Nucleated RBCs # 0.0 /100WBC /100W BC Sodium 140 mmol/L mmol/L (136-145) Potassium 4.0 mmol/L mmol/L (3.5-5.1) Chloride 103 mmol/L mmol/L (98-107) Carbon Dioxide 27 mmol/L mmol/L (22-29) Anion Gap 14.0 (5-19) BUN 14 mg/dL mg/dL (6-20) Creatinine 0.5 mg/dL mg/dL (0.5-0.9) GFR Calculation 130.6 mL/min H mL /min (90-130) Glucose 133 mg/dL H mg/dL (65-115) Calculated Osmolal ity 292 mOsm/kg mOsm/ kg (285-295) Calcium 9.0 mg/dL mg/dL (8.5-10.5) Total Bilirubin 0.8 mg/dL mg/dL (0.15-1.2) AST 18 U/L U/L (0-32) ALT 35 U/L H U/L (0-33) Alkaline Phosphata se 100 IU/L IU/L (35-105) NT-Pro-B Natriuret Pep 49 pg/mL pg/mL Cancelled (0-125) Total Protein 6.0 g/dL L g/dL (6.6-8.7) Albumin 3.9 g/dL g/dL (3.5-5.2) Globulin 2.1 g/dL g/dL (1.3-4.6) Lipase 80 U/L H U/L (13-60) Urine Color Urine Appearance Urine pH Ur Specific Gravit y Urine Protein Urine Glucose (UA) Urine Ketones Urine Blood Urine Nitrate Urine Bilirubin Urine Urobilinogen Ur Leukocyte Lolly ase 03/31/21 15:30 WBC RBC Hgb Hct MCV MCH MCHC RDW Plt Count MPV Neut % (Auto) Lymph % (Auto) Ellsworth % (Auto) Eos % (Auto) Baso % (Auto) Neut # (Auto) Lymph # (Auto) Ellsworth # (Auto) Eos # (Auto) Baso # (Auto) Nucleated RBC % (a uto) Nucleated RBCs # Sodium Potassium Chloride Carbon Dioxide Anion Gap BUN Creatinine GFR Calculation Glucose Calculated Osmolal ity Calcium Total Bilirubin AST ALT Alkaline Phosphata se NT-Pro-B Natriuret Pep Total Protein Albumin Globulin Lipase Urine Color Yellow (Yellow) Urine Appearance Clear (CLEAR) Urine pH 5 (5-7) Ur Specific Gravit y 1.010 (1.005-1.030) Urine Protein Neg (Negative) Urine Glucose (UA) Norm (Normal) Urine Ketones Negative (Negative) Urine Blood Neg (Negative) Urine Nitrate Negative (Negative) Urine Bilirubin Neg (Negative) Urine Urobilinogen Norm mg/dL mg/dL (Negative) Ur Leukocyte Lolly ase Negative (Negative) Imaging Data^: Other Imaging: Radiologist's impression: [id number].[place], [place] [address]LI Scan ReportSigned Patient: Neeta Valencia #: [id number]: 1970Acct#:[id number]/Sex: 50 / FADM Date: 03/31/21Loc: ERRoom/Bed:Attending Dr: Ordering Provider/Ordering MD: Jessica Dickerson MD Date of Service: 03/31/21 Procedure(s): CT abdomen pelvis w con* [id number] Accession Number(s): [id number] Report Number: [id number] PROCEDURE INFORMATION: Exam: CT Abdomen And Pelvis With Contrast Exam date and time: 03/31/2021 12:10 PM Age: 50 years old Clinical indication: Abdominal pain; Prior surgery; Surgery type: Appy; Additional info: Evluate for abd pain TECHNIQUE: Imaging protocol: Computed tomography of the abdomen and pelvis with contrast. Radiation optimization: All CT scans at this facility use at least one of these dose optimization techniques: automated exposure control; mA and/or kV adjustment per patient size (includes targeted exams where dose is matched to clinical indication); or iterative reconstruction. Contrast material: OMNI 300; Contrast volume: 95 ml; Contrast route: INTRAVENOUS (IV); COMPARISON: CT abdomen pelvis wo con [id number] 03/17/2021 5:02 PM RADIATION DOSE METRICS: Total DLP (mGy-cm): 1822.12 FINDINGS: Lungs: Multifocal patchy opacities at the lung bases are less prominent when compared to the prior CT scan. Liver: There are benign-appearing calcifications in the liver. Liver is enlarged measuring 21.5 cm.There is a diffuse decrease in hepatic parenchymal density, consistent with fatty infiltration. Gallbladder and bile ducts: Normal. No calcified stones. No ductal dilation. Pancreas: Normal. No ductal dilation. Spleen: Normal. No splenomegaly. Adrenal glands: There is a 10 mm focal hypodense mass in the right adrenal gland, consistent in appearance and density with a benign adrenal adenoma. This is unchanged from the prior study. Kidneys and ureters: Left renal scarring. Bilateral nonobstructing renal calculi. Stomach and bowel: Unremarkable. No obstruction. No mucosal thickening. Appendix: No evidence of appendicitis. Intraperitoneal space: Unremarkable. No free air. No significant fluid collection. Vasculature: Unremarkable. No abdominal aortic aneurysm. Lymph nodes: Unremarkable. No enlarged lymph nodes. Urinary bladder: Bladder wall is somewhat ill-defined and there is minimal stranding in the pericystic fat. Reproductive: Unremarkable as visualized. Bones/joints: Unremarkable. No acute fracture. Soft tissues: Right side rectus sheath hematoma have decreased in size when compared to the prior study. Edema and/or hematoma is present in the surrounding subcutaneous soft tissues. CT/CT abdomen pelvis w con* [id number] IMPRESSION: 1. Right side rectus sheath hematoma has decreased in size when compared to the prior study. There is edema and/or hematoma in the surrounding subcutaneous soft tissues. 2. Bladder wall is somewhat ill-defined and there is minimal stranding in the pericystic fat. Please correlate clinically if there is suspicion for acute cystitis. 3. Multifocal patchy opacities at the lung bases have improved when compared to the prior CT scan. Differential includes residual pneumonia and/or scarring. 4. Hepatomegaly with fatty infiltration of the liver. COMMENTS: Consistent with the [employer]'s Incidental Findings Committee white paper (J Am Mike Radiol 2017): Any incidental adrenal lesion less than or equal to 1 cm is likely benign. No follow-up imaging is recommended for these lesions per consensus recommendations based on imaging criteria. Further lab evaluation could be pursued if warranted based on clinical findings. Radiation Dose CTDIVOL = (mGy): DLP = 1822.12 (mGy-cm) Dictated By:Amparo Mckee MDSigned By:Amparo Mckee MDSigned Date/Time:03/31/21 1452DD/ [address] [id number] ReportSigned Patient: Neeta Valencia #: [id number]: [id number]#:[id number]/Sex: 50 / FADM Date: 03/31/21Loc: ERRoom/Bed:Attending Dr: Ordering Provider/Ordering MD: Jessica Dickerson MD Date of Service: 03/31/21 Procedure(s): XR chest 1V portable [id number] Accession Number(s): [id number] Report Number: [id number] PROCEDURE INFORMATION: Exam: XR Chest Exam date and time: 03/31/2021 12:10 PM Age: 50 years old Clinical indication: Dyspnea TECHNIQUE: Imaging protocol: XR of the chest. Views: 1 view. COMPARISON: CR XR chest 1V portable [id number] 03/20/2021 6:48 PM FINDINGS: Lungs: Multifocal patchy bilateral pulmonary infiltrates appear mildly less prominent when compared to the prior study. Pleural spaces: Unremarkable. No pleural effusion. No pneumothorax. Heart/Mediastinum: Unremarkable. No cardiomegaly. Bones/joints: Unremarkable. XR/XR chest 1V portable [id number] IMPRESSION: Multifocal patchy bilateral pulmonary infiltrates are less prominent when compared to the prior study. Dictated By:Amparo Mckee MDSigned By:Amparo Mckee MDSigned Date/Time:03/31/21 1441DD/ 1439 Discharge Plan Discharge Patient Disposition: Home Clinical Impression: Abdominal pain, Leg swelling, COVID-19 Condition: Stable Prescriptions: No Action Micro-C Tabs 1 tab PO DAILY RF: 0 Vitamin B-12 1 tab PO DAILY RF: 0 Zinc Suspension 2 ml PO DAILY RF: 0 Zofran 4 mg tablet 4 mg PO Q8H PRN (Reason: Nausea And Vomiting) RF: 0 aspirin 81 mg Tablet,Delayed Release (Dr/Ec) 81 mg PO PRN PRN (Reason: Pain) RF: 0 amlodipine 10 mg Tablet 10 mg PO DAILY 30 Days Qty: 30 RF: 0 Eliquis 5 mg Tablet 5 mg PO BID@0900,2100 30 Days Qty: 60 RF: 0 Advair Diskus 250-50 mcg/dose Blister With Device 1 puff inhalation BID.RESPIRATORY 14 Days Qty: 28 RF: 0 Vitamin C 500 mg Tablet 500 mg PO BID 14 Days Qty: 28 RF: 0 benzonatate 100 mg Capsule 200 mg PO TID 14 Days Qty: 84 RF: 0 pantoprazole 40 mg Tablet,Delayed Release (Dr/Ec) 40 mg PO BID 14 Days Qty: 28 RF: 0 Spiriva with HandiHaler 18 mcg capsule, w/inhalation device 1 cap inhalation DAILY 14 Days Qty: 14 RF: 0 valsartan 160 mg tablet 80 mg PO DAILY Qty: 0 RF: 0 metformin 850 mg tablet 850 mg PO DAILY Qty: 30 RF: 0 Discharge Orders: Discharge ED (Routine); Ordered 03/31/21 Ordered By: Jessica Dickerson Referrals: Debbie Remy, [employer] [Primary Care Provider] - Discharge Diet: Advance as tolerated Discharge Activity: Resume usual activity Patient Instructions: SARS (Severe Acute Respiratory Syndrome) (ED), Abdominal Pain (ED) Activity Restrictions/Additional Instructions: Come back to the emergency room if your symptoms worsen, have any shortness of breath, fever/chills, dehydration, inability tolerate p.o., any difficulty breathing, or any new or concerning complaints. Coding Level of Care Code ED Bariatric Physician for Paco Gill
[2021-03-31] MEDS: sodium chloride 0.9% 1,000 ML 999 ML IV (12:58)
[2021-03-31] MEDS: sodium chloride 0.9% 500 ML IV (12:58)
[2021-03-31] MEDS: iohexol 300 mg/mL 100 mL Btl IV (14:01)
[2021-03-31 15:35] LABS: Add Urine Microscopic? NO; Charge for UA Resulting for Rev
[2021-03-31 15:45] LABS: Bilirubin Urine Neg (Negative); Blood Urine Neg (Negative); Glucose Urine UA Norm (Normal); Ketones Urine Negative (Negative); Leukocyte Esterase Urine Negative (Negative); Nitrate Urine Negative (Negative); Protein Urine Neg (Negative); Urine Appearance Clear (CLEAR); Urine Color Yellow (Yellow); Urobilinogen Urine Norm (Negative); pH Urine 5 (5-7)
== END 2021-03-31 15:58 | disposition home or self-care (01) ==
PROVIDERS: Emergency Provider Emergency Medicine; PCP Nurse Practitioner
DX: M79.89 Other specified soft tissue disorders (principal); R10.9 Unspecified abdominal pain; U07.1 COVID-19; Z79.01 Long term (current) use of anticoagulants; Z79.84 Long term (current) use of oral hypoglycemic drugs; Z79.82 Long term (current) use of aspirin; I10 Essential (primary) hypertension
CPT/HCPCS: 71045; 74177; 80053; 81003; 83690; 83880; 85025; 93005; 96360; 96361; 99284; J7030; J7040; Q9967

== ENCOUNTER 2022-10-17 12:11 | Emergency (ER) | payer SELFPAY ==
[2022-10-17 12:19] VITALS: BP 278/155; PULSE 101; RESP 14; TEMP 36.8; O2SAT 97; BMI 51.5
--- NOTE | 2022-10-17 12:27 | XRR_ITS ---
PROCEDURE INFORMATION: Exam: XR Chest Exam date and time: 10/17/2022 12:46 PM Age: 52 years old Clinical indication: Cough and dyspnea; Additional info: Dyspnea/cough TECHNIQUE: Imaging protocol: Radiologic exam of the chest. Views: 1 view. COMPARISON: CR XR chest 1V portable [id number] 03/31/2021 1:53 PM FINDINGS: Lungs: Lungs are clear. Pleural spaces: There is no pleural effusion or pneumothorax. Heart/Mediastinum: There is mild enlargement of the cardiac silhouette. Bones/joints: Bones are unremarkable. XR/XR chest 1V portable [id number] IMPRESSION: No acute findings.
--- NOTE | 2022-10-17 12:27 | CT_ITS ---
WS: [id number] CT HEAD NONCONTRAST HISTORY: HTN TECHNIQUE: Contiguous axial imaging performed through the brain in 2.5 mm imaging. Bone and soft tiss ue windows. Sagittal and coronal reformats reviewed. All CT scans at [facility] use at least one of these dose optimization techniques: automated exposure control; mA and/or kV adjustment per pa tient size (includes targeted exams where dose is matched to clinical indication); or iterative recon struction. DLP: 1071.48 mGy.cm COMPARISON: None available. No acute intracranial hemorrhage, midline shift or mass effect. No atrophy or prior infarcts or herniation. Calcification adjacent to the LEFT frontal lobe. No mass effect upon the frontal lobe. Ventricles: Normal size with no hydrocephalus. Paranasal sinuses: As visualized are clear. Mastoid air cells: Well pneumatized. Calvarium and scalp: Skull is intact with no soft tissue edema or swelling. CT/CT head wo con* [id number] IMPRESSION: Negative head CT.
--- NOTE | 2022-10-17 12:31 | W.ED.RECABL ---
HPI - Recheck/Abnormal Lab/Rx General: Chief Complaint: Recheck/Abnormal Lab/Rx Stated Complaint: High blood pressure, Blurry and shadowy vision Time Seen by Provider: 10/17/22 12:26 Source: patient Mode of arrival: ambulatory History of Present Illness: 52-year-old female presents emergency room complaining of elevated blood pressure lightheaded and dizzy. At home her blood pressure was 237/14. She had a headache. She has no difficulty speech or swallowing but has had a little bit of blurry vision she denies any chest pain. No nausea vomiting or diarrhea. Has not had any falls. She has not noticed difficulty with balance or gait. Description of abnormal result: Elevated blood pressure Associated symptoms: none Treatments prior to arrival: other medications Review of Systems Const: Denies: fever(s), chills, body aches, change in appetite, fatigue or malaise ENMT: Denies: throat pain, ear or mastoid pain, nasal discharge or nasal congestion Card: Denies: chest pain, edema, dyspnea on exertion or orthopnea Resp: Denies: dyspnea, productive cough or non-productive cough GI: Denies: abdominal pain, nausea, vomiting, hematemesis, coffee ground emesis, diarrhea, constipation, bloating, hematochezia or melena : Denies: flank pain, difficulty voiding, dysuria, urinary frequency or urinary urgency Skin/Breast: Denies: rash or pruritus PFSH ED PFSH: Medical History Asthma Cystitis cystica Essential (primary) hypertension History of stent insertion of renal artery BILATERAL Hydroureteronephrosis Left ureteral calculus Obesity, morbid, BMI 50 or higher SUZIE on CPAP Pneumonia due to Renal calculus Retained ureteral stent Surgical History History of knee replacement Right 2000 Hx of appendectomy Family History Other Adopted No pertinent family history Social History Second hand smoke exposure: No Smoking risk assessment/counseling performed?: No Alcohol intake: current Alcohol intake frequency: holidays/special occasions only Desire information about alcohol rehabilitation?: No Counseling given: No Substance/Drug Use: never Desire information about substance/drug rehabilitation?: No Counseling given: No Adopted: No Caregiver/support person: No Lives independently: Yes Household members: spouse Housing: House Marital status: Number of children: 2 service: No Current occupational status: unemployed Current occupation: Works from home Do you think of yourself as: Straight/Heterosexual Current gender identity: Female Special ching needs: Yes Physical Exam Const: GENERAL APPEARANCE: cooperative and comfortable ORIENTATION/CONSCIOUSNESS: Yes awake, Yes oriented to person, Yes oriented to place and Yes oriented to time HENMT: COMMON NORMALS: normocephalic, atraumatic and hearing grossly normal bilaterally HEAD & SCALP: normocephalic and atraumatic Resp: COMMON NORMALS: normal respiratory effort, No retractions, No use of accessory muscles and clear to auscultation bilaterally AUSCULTATION: clear to auscultation bilaterally Cardio: COMMON NORMALS: regular rhythm and No murmurs present (Cardio) RATE: tachycardic RHYTHM: regular rhythm GI: COMMON NORMALS: Soft to palpation and No hepatosplenomegaly present AUSCULTATION: Yes normoactive bowel sounds PALPATION: Yes Soft to palpation, No Tenderness to palpation present (GI), No Guarding due to palpation present (GI) and Yes No hepatosplenomegaly present Extremity: COMMON NORMALS: normal to inspection, capillary refill normal, no clubbing, cyanosis or edema, no calf tenderness and no pedal edema Neuro: SENSORIUM/ORIENTATION: Yes oriented to person, Yes oriented to place and Yes oriented to time Skin: COMMON NORMALS: no rashes or lesions noted GENERAL SKIN EXAM: no rashes or lesions noted Course Vital Signs: Vital signs: Vital Signs Temperature 98.2 F 10/17/22 12:19 Pulse Rate 99 10/17/22 14:15 Respiratory Rate 14 10/17/22 12:19 Blood Pressure 161/105 10/17/22 14:15 Pulse Oximetry 96 10/17/22 14:15 Oxygen Delivery Me thod Room Air 10/17/22 12:19 MDM - Recheck/Abnormal Lab/Rx Medical Decision Making Labs imaging and EKGs reviewed as found in the chart no acute EKG changes are noted. Increase amlodipine to 10 mg daily. Add Toprol 50 mg daily. Recheck with primary care doctor within the next 5 to 7 days return if is further problems. Medical Records I reviewed the patient's medical records. Lab Data I reviewed the patient's lab results. 10/17/22 12:56 10/17/22 12:56 Radiology Impressions Chest X-Ray 10/17/22 12:27 IMPRESSION: No acute findings. Head CT 10/17/22 12:27 IMPRESSION: Negative head CT. Laboratory Results WBC 10.8 10^3/uL (4.0-10.0) H 10/17/22 12:56 RBC 5.00 10^6/uL (4.1-5.3) 10/17/22 12:56 Hgb 14.3 g/dL (11.5-15.3) 10/17/22 12:56 Hct 44.9 % (37.0-47.0) 10/17/22 12:56 MCV 89.8 fl (81-99) 10/17/22 12:56 MCH 28.6 pg (28.0-34.0) 10/17/22 12:56 MCHC 31.8 g/dL (30.0-36.0) 10/17/22 12:56 RDW 13.4 % (12.1-15.1) 10/17/22 12:56 Plt Count 220 10^3/cmm (130-400) 10/17/22 12:56 MPV 9.8 fL (7.4-10.4) 10/17/22 12:56 Neut % (Auto) 66.5 % 10/17/22 12:56 Lymph % (Auto) 23.9 % 10/17/22 12:56 [place] % (Auto) 5.6 % 10/17/22 12:56 Eos % (Auto) 2.8 % 10/17/22 12:56 Baso % (Auto) 0.5 % 10/17/22 12:56 Neut # (Auto) 7.21 10^3/uL (1.8-7.7) 10/17/22 12:56 Lymph # (Auto) 2.6 10^3/uL (0.8-4.8) 10/17/22 12:56 [place] # (Auto) 0.6 10^3/uL (0.2-0.9) 10/17/22 12:56 Eos # (Auto) 0.3 10^3/uL (0.0-0.8) 10/17/22 12:56 Baso # (Auto) 0.1 10^3/uL (0.0-0.1) 10/17/22 12:56 Nucleated RBC % (auto) 0 % 10/17/22 12:56 Nucleated RBCs # 0.0 /100WBC 10/17/22 12:56 Sodium 133 mmol/L (136-145) L 10/17/22 12:56 Potassium 3.7 mmol/L (3.5-5.1) 10/17/22 12:56 Chloride 96 mmol/L (98-107) L 10/17/22 12:56 Carbon Dioxide 23 mmol/L (22-29) 10/17/22 12:56 Anion Gap 17.7 (5-19) 10/17/22 12:56 BUN 8 mg/dL (6-20) 10/17/22 12:56 Creatinine 0.6 mg/dL (0.5-0.9) 10/17/22 12:56 GFR Calculation 105.0 mL/min (90-130) 10/17/22 12:56 Glucose 239 mg/dL (65-115) H 10/17/22 12:56 Calculated Osmolality 282 mOsm/kg (285-295) L 10/17/22 12:56 Calcium 9.2 mg/dL (8.5-10.5) 10/17/22 12:56 Total Bilirubin 0.5 mg/dL (0.15-1.2) 10/17/22 12:56 AST 58 U/L (0-32) H 10/17/22 12:56 ALT 58 U/L (0-33) H 10/17/22 12:56 Alkaline Phosphatase 151 U/L (35-105) H 10/17/22 12:56 Total Protein 7.2 g/dL (6.6-8.7) 10/17/22 12:56 Albumin 4.0 g/dL (3.5-5.2) 10/17/22 12:56 Globulin 3.2 g/dL (1.3-4.6) 10/17/22 12:56 Urine Color Yellow (Yellow) 10/17/22 14:57 Urine Appearance Sl hazy (CLEAR) A 10/17/22 14:57 Urine pH 5 (5-7) 10/17/22 14:57 Ur Specific [place] 1.020 (1.005-1.030) 10/17/22 14:57 Urine Protein Trace (Negative) 10/17/22 14:57 Urine Glucose (UA) 2+ (Normal) H 10/17/22 14:57 Urine Ketones Negative (Negative) 10/17/22 14:57 Urine Blood Neg (Negative) 10/17/22 14:57 Urine Nitrate Negative (Negative) 10/17/22 14:57 Urine Bilirubin Neg (Negative) 10/17/22 14:57 Urine Urobilinogen Norm mg/dL (Negative) 10/17/22 14:57 Ur Leukocyte Esterase Negative (Negative) 10/17/22 14:57 Urine RBC None /hpf (0-2) 10/17/22 14:57 Urine WBC 0-4 /hpf (0-5) H 10/17/22 14:57 Ur Squamous Epith Cells 0-4 /hpf (0-5) H 10/17/22 14:57 Amorphous Sediment Not Reportable 10/17/22 14:57 Urine Bacteria Trace /hpf (NONE) 10/17/22 14:57 Hyaline Casts Rare /lpf 10/17/22 14:57 Urine Mucus Trace /hpf 10/17/22 14:57 Discharge Plan Discharge Patient Disposition: Home Clinical Impression: Accelerated hypertension Condition: Stable Prescriptions: New Toprol XL 50 mg tablet extended release 24 hr 50 mg PO DAILY Qty: 30 0RF amlodipine 10 mg tablet 10 mg PO DAILY Qty: 30 0RF Discontinued amlodipine [Norvasc] 5 mg tablet 5 mg PO DAILY PRN (Reason: Blood Pressure) No Action Aspir-81 81 mg Tablet,Delayed Release (Dr/Ec) 81 mg PO DAILY Vitamin C 500 mg Tablet 500 mg PO DAILY PRN (Reason: Cold Symptoms) valsartan 320 mg tablet 320 mg PO DAILY PRN (Reason: Blood Pressure) Discharge Orders: Discharge ED (Routine); Ordered 10/17/22 Ordered By: Oneil Shanks Referrals: Debbie Remy, SECURITY INVESTIGATOR-C [Primary Care Provider] - Discharge Diet: Usual diet Discharge Activity: Resume usual activity Patient Instructions: Opioid Safety, Pain Management Activity Restrictions/Additional Instructions: You were seen today for accelerated hypertension. Your blood pressure improved with the medications you were given. Coding Level of Care Code ED Refuge Worker for Paco Gill
[2022-10-17 13:05] LABS: Basophils # 0.1 10^3/uL (0.0-0.1); Basophils % 0.5 %; Eosinophils # 0.3 10^3/uL (0.0-0.8); Eosinophils % 2.8 %; Hematocrit 44.9 % (37.0-47.0); Hemoglobin 14.3 g/dL (11.5-15.3); Lymphocytes # 2.6 10^3/uL (0.8-4.8); Lymphocytes % 23.9 %; Mean Corpuscular HGB Conc 31.8 g/dL (30.0-36.0); Mean Corpuscular Hemoglobin 28.6 pg (28.0-34.0); Mean Corpuscular Volume 89.8 fl (81-99); Mean Platelet Volume 9.8 fL (7.4-10.4); Monocytes # 0.6 10^3/uL (0.2-0.9); Monocytes % 5.6 %; Neutrophils # 7.21 10^3/uL (1.8-7.7); Neutrophils % 66.5 %; Nucleated Red Blood Cells % 0 %; Platelet Count 220 10^3/cmm (130-400); Red Cell Distribution Width 13.4 % (12.1-15.1); White Blood Count 10.8 10^3/uL (4.0-10.0)
[2022-10-17] MEDS: amlodipine 5 mg Tablet PO (13:09)
[2022-10-17 13:16] VITALS: BP 190/123; O2SAT 96
[2022-10-17 13:22] LABS: Alanine Aminotransferase 58 U/L (0-33); Alkaline Phosphatase 151 U/L (35-105); Anion Gap 17.7 (5-19); Aspartate Amino Transferase 58 U/L (0-32); Blood Urea Nitrogen 8 mg/dL (6-20); Calcium 9.2 mg/dL (8.5-10.5); Carbon Dioxide 23 mmol/L (22-29); Chloride 96 mmol/L (98-107); Creatinine Clr Calc Pharmacy 151.0738; Globulin 3.2 g/dL (1.3-4.6); Glucose 239 mg/dL (65-115); Osmolality Calculated 282 mOsm/kg (285-295); Potassium 3.7 mmol/L (3.5-5.1); Sodium 133 mmol/L (136-145); Total Bilirubin 0.5 mg/dL (0.15-1.2); Total Protein 7.2 g/dL (6.6-8.7)
[2022-10-17 13:30] VITALS: BP 190/123; O2SAT 96
[2022-10-17 13:45] VITALS: BP 189/123; O2SAT 97
--- NOTE | 2022-10-17 13:52 | PC.NURSE ---
Pt placed on continuous bedside cardiac monitoring.
[2022-10-17 14:00] VITALS: BP 173/122; PULSE 102; O2SAT 95
[2022-10-17] MEDS: hyDRALAzine 20 mg/mL INJ 1 mL IVP (14:02)
[2022-10-17] MEDS: labetalol 5 mg/mL SDV 20mL 10 MG IVP (14:02)
[2022-10-17 14:15] VITALS: BP 161/105; PULSE 99; O2SAT 96
--- NOTE | 2022-10-17 14:43 | PC.PHAR ---
pt states she takes no medications regularly-pt states she took her last amlodipine 5mg today rx bottle dated 06/07/2021-pt states she also took a valsartan 320mg tab today rx bottle dated 06/25/2021-pt states she hasnt taken an 81mg aspirin in 2-3 weeks-notes are made in the pharmacy comments
[2022-10-17 15:46] LABS: Add Urine Microscopic? YES; Bacteria Urine TRACE /hpf; Bilirubin Urine Neg (Negative); Blood Urine Neg (Negative); Glucose Urine UA 2+ (Normal); Ketones Urine Negative (Negative); Leukocyte Esterase Urine Negative (Negative); Mucus Urine TRACE /hpf; Nitrate Urine Negative (Negative); Protein Urine Trace (Negative); Squamous Epithelial Cell Urine 0-4 /hpf (0-5); Urine Appearance SL Hazy (CLEAR); Urine Color Yellow (Yellow); Urobilinogen Urine Norm (Negative); WBC Urine 0-4 /hpf (0-5); pH Urine 5 (5-7)
[2022-10-17 15:47] LABS: Add Urine Culture? No; Hyaline Casts Urine RARE /lpf
== END 2022-10-17 15:58 | disposition home or self-care (01) ==
PROVIDERS: Emergency Provider Family Medicine; PCP Nurse Practitioner
DX: I10 Essential (primary) hypertension (principal); Z79.82 Long term (current) use of aspirin
CPT/HCPCS: 36415; 70450; 71045; 80053; 81001; 85025; 96374; 96375; 99285; J0360; J3490

== ENCOUNTER 2022-10-23 11:17 | Emergency (ER) | payer SELFPAY ==
[2022-10-23 12:02] VITALS: BP 184/102; PULSE 85; RESP 16; TEMP 36.9; O2SAT 93; BMI 52.3
[2022-10-23 13:04] LABS: Add Urine Microscopic? NO; Charge for UA Resulting for Rev
[2022-10-23 13:22] LABS: Urine Appearance Clear (CLEAR); Urine Color Yellow (Yellow)
[2022-10-23 13:23] LABS: Bilirubin Urine Neg (Negative); Blood Urine Neg (Negative); Glucose Urine UA 4+ (Normal); Ketones Urine Negative (Negative); Leukocyte Esterase Urine Negative (Negative); Nitrate Urine Negative (Negative); Protein Urine Neg (Negative); Specific Gravity, Urine 1.015 (1.005-1.030); Urobilinogen Urine Neg (Negative); pH Urine 7 (5-7)
--- NOTE | 2022-10-23 13:39 | CT_ITS ---
WS: [id number] CT ABDOMEN PELVIS TECHNIQUE: Noncontrast CT of the abdomen and pelvis with coronal and sagittal reformatted images. CLINICAL INFORMATION: right flank pain, hx stones COMPARISON: 2020 DLP: 1255.[address] scans at [facility] use at least one of these dose optimization techniques: automated e xposure control; mA and/or kV adjustment per patient size (includes targeted exams where dose is matc hed to clinical indication); or iterative reconstruction. FINDINGS: Hepatomegaly. Diffuse fatty infiltration liver. Lung bases are well aerated. Areas of focal fatty spa ring in the liver. Normal noncontrast spleen. Normal GE junction. Adrenal glands are normal. Noncontr ast pancreas is normal. Normal caliber abdominal aorta. Tiny RIGHT adrenal nodule likely adenoma. LEFT adrenal gland is normal. No hydronephrosis in either k [place]. No obstructing renal or ureteral calculi. Pelvic phleboliths. No free fluid in the abdomen or pelvis. A few nonobstructing RIGHT calyceal calculi. Largest measures 6 mm. Tiny fat-containing umbil ical hernia. CT/CT kidney stone [id number] IMPRESSION: 1. No obstructing renal or ureteral calculi. No hydronephrosis in either kidne y. A few nonobstructing RIGHT calyceal calculi the largest measuring 6 mm. 2. Hepatomegaly with diffuse fatty infiltration liver. 3. Sigmoid diverticulosis. No evidence of acute diverticulitis. 4. No other acute findings.
--- NOTE | 2022-10-23 14:11 | W.ED.FEMALGU ---
HPI - Female Genitourinary General: Chief complaint: Urogenital-Female Stated complaint: urinary pains Time Seen by Provider: 10/23/22 13:23 History of Present Illness: Patient presents to the ER with complaints of chronic right kidney pain. Patient does have a history of multiple stones in the past. Patient states his pain is right flank pain and does not radiate. Patient also complains dark cloudy and odorous urine. MD elicited complaint: flank pain Pertinent past history: other (Multiple kidney stones) Onset (ago): day(s) Location of symptoms: flank (Right flank) and other Severity: mild Female Urogenital Radiation: Non-Radiating Quality of pain: cramping and aching Consistency: intermittent Review of Systems General: Reports: 10 or more systems reviewed and unremarkable except in HPI and below PFSH ED PFSH: Medical History Asthma Cystitis cystica Essential (primary) hypertension History of stent insertion of renal artery BILATERAL Hydroureteronephrosis Left ureteral calculus Obesity, morbid, BMI 50 or higher SUZIE on CPAP Pneumonia due to 2019-nCoV Renal calculus Retained ureteral stent Surgical History History of knee replacement Right 2000 Hx of appendectomy Family History Other Adopted No pertinent family history Social History Second hand smoke exposure: No Smoking risk assessment/counseling performed?: No Alcohol intake: current Alcohol intake frequency: holidays/special occasions only Desire information about alcohol rehabilitation?: No Counseling given: No Substance/Drug Use: never Desire information about substance/drug rehabilitation?: No Counseling given: No Adopted: No Caregiver/support person: No Lives independently: Yes Household members: spouse Housing: House Marital status: Number of children: 2 service: No Current occupational status: unemployed Current occupation: Works from home Do you think of yourself as: Straight/Heterosexual Current gender identity: Female Special ching needs: Yes Physical Exam Const: COMMON NORMALS: no acute distress, average body habitus, patient oriented x3, no limitations, healthy appearing, alert and well nourished HENMT: COMMON NORMALS: normocephalic, atraumatic, hearing grossly normal bilaterally, external ears normal, Normal external nose present and moist oral mucous membranes HEAD & SCALP: normocephalic and atraumatic NOSE: Normal external nose present EXTERNAL EAR: Yes external ears normal Eye: COMMON NORMALS: Equal, round and reactive pupils present, EOMs intact bilaterally, conjunctivae normal and no scleral icterus CONJUNCTIVA: Yes conjunctivae normal PUPIL: Yes Equal, round and reactive pupils present Neck/C-Spine: COMMON NORMALS: full ROM, no lymphadenopathy, supple, no meningeal signs, no JVD and Thyroid normal THYROID: Thyroid normal Lymph: LYMPHATIC: no lymphadenopathy noted Chest: COMMONS NORMALS: normal inspection of the chest and normal palpation of entire chest wall Resp: COMMON NORMALS: normal respiratory effort, No retractions, No use of accessory muscles and clear to auscultation bilaterally AUSCULTATION: clear to auscultation bilaterally Cardio: COMMON NORMALS: no JVD, regular rate, regular rhythm, S1 normal heart sound present, S2 normal heart sound present, No gallops present (Cardio), No clicks present (Cardio) and No murmurs present (Cardio) RATE: regular rate RHYTHM: regular rhythm HEART SOUNDS: S1 normal heart sound present and S2 normal heart sound present GI: COMMON NORMALS: Normal to inspection, nondistended, normoactive bowel sounds present, Soft to palpation, non-tender, No hepatosplenomegaly present and no masses PALPATION: Yes Soft to palpation and Yes No hepatosplenomegaly present Neuro: COMMON NORMALS: patient oriented x3 SENSORIUM/ORIENTATION: Yes alert MENINGEAL SIGNS: Yes no meningeal signs Course Vital Signs: Vital signs: Vital Signs Temperature 98.4 F 10/23/22 12:02 Pulse Rate 85 10/23/22 12:02 Respiratory Rate 18 10/23/22 14:34 Blood Pressure 184/102 10/23/22 12:02 Pulse Oximetry 97 10/23/22 14:34 Oxygen Delivery Me thod Room Air 10/23/22 14:34 MDM - Female Medical Decision Making Patient presents to the ER with complaints of right flank pain. Patient is a known chronic kidney stone pot washer. Patient had lab work which showed a white count of 10.8 hemoglobin hematocrit of 15.5 and 46 and rest of her metabolic panel essentially benign other than a blood sugar 187. Patient CT scan showed multiple nonobstructing right calculi measuring the largest 6 mm. Patient will be discharged on antispasmodic per her request and will be told to follow-up with her PCP and/or urologist in preferably next week. Differential Diagnosis Likely abdominal pain and calculus of kidney; Unlikely acute appendicitis, constipation, diverticulitis, endometriosis, gastroenteritis, pancreatitis or small bowel obstruction Medical Records I reviewed the patient's medical records. Lab Data I reviewed the patient's lab results. 10/23/22 14:27 10/23/22 14:27 Radiology Impressions Abdomen/Pelvis CT 10/23/22 13:39 IMPRESSION: 1. No obstructing renal or ureteral calculi. No hydronephrosis in either kidney. A few nonobstructing RIGHT calyceal calculi the largest measuring 6 mm. 2. Hepatomegaly with diffuse fatty infiltration liver. 3. Sigmoid diverticulosis. No evidence of acute diverticulitis. 4. No other acute findings. Laboratory Results WBC 10.8 10^3/uL (4.0-10.0) H 10/23/22 14: RBC 5.33 10^6/uL (4.1-5.3) H 10/23/22 14:27 Hgb 15.5 g/dL (11.5-15.3) H 10/23/22 14: Hct 48.6 % (37.0-47.0) H 10/23/22 14: MCV 91.2 fl (81-99) 10/23/22 14: MCH 29.1 pg (28.0-34.0) 10/23/22 14: MCHC 31.9 g/dL (30.0-36.0) 10/23/22 14: RDW 13.4 % (12.1-15.1) 10/23/22 14: Plt Count 281 10^3/cmm (130-400) 10/23/22 14: MPV 10.2 fL (7.4-10.4) 10/23/22 14: Neut % (Auto) 65.3 % 10/23/22 14: Lymph % (Auto) 25.0 % 10/23/22 14: [place] % (Auto) 5.8 % 10/23/22 14: Eos % (Auto) 2.8 % 10/23/22 14:27 Baso % (Auto) 0.6 % 10/23/22 14:27 Neut # (Auto) 7.06 10^3/uL (1.8-7.7) 10/23/22 14:27 Lymph # (Auto) 2.7 10^3/uL (0.8-4.8) 10/23/22 14:27 [place] # (Auto) 0.6 10^3/uL (0.2-0.9) 10/23/22 14:27 Eos # (Auto) 0.3 10^3/uL (0.0-0.8) 10/23/22 14:27 Baso # (Auto) 0.1 10^3/uL (0.0-0.1) 10/23/22 14:27 Nucleated RBC % (auto) 0 % 10/23/22 14: Nucleated RBCs # 0.0 /100WBC 10/23/22 14:27 Sodium 138 mmol/L (136-145) 10/23/22 14: Potassium 4.4 mmol/L (3.5-5.1) 10/23/22 14: Chloride 99 mmol/L (98-107) 10/23/22 14: Carbon Dioxide 25 mmol/L (22-29) 10/23/22 14:27 Anion Gap 18.4 (5-19) 10/23/22 14:27 BUN 10 mg/dL (6-20) 10/23/22 14:27 Creatinine 0.7 mg/dL (0.5-0.9) 10/23/22 14:27 GFR Calculation 87.9 mL/min (90-130) L 10/23/22 14:27 Glucose 187 mg/dL (65-115) H 10/23/22 14:27 Calculated Osmolality 290 mOsm/kg (285-295) 10/23/22 14:27 Calcium 9.7 mg/dL (8.5-10.5) 10/23/22 14:27 Total Bilirubin 0.3 mg/dL (0.15-1.2) 10/23/22 14:27 AST 60 U/L (0-32) H 10/23/22 14:27 ALT 69 U/L (0-33) H 10/23/22 14:27 Alkaline Phosphatase 160 U/L (35-105) H 10/23/22 14:27 Total Protein 7.7 g/dL (6.6-8.7) 10/23/22 14:27 Albumin 4.5 g/dL (3.5-5.2) 10/23/22 14:27 Globulin 3.2 g/dL (1.3-4.6) 10/23/22 14:27 Urine Color Yellow (Yellow) 10/23/22 12:49 Urine Appearance Clear (CLEAR) 10/23/22 12:49 Urine pH 7 (5-7) 10/23/22 12:49 Ur Specific [place] 1.015 (1.005-1.030) 10/23/22 12:49 Urine Protein Neg (Negative) 10/23/22 12:49 Urine Glucose (UA) 4+ (Normal) H 10/23/22 12:49 Urine Ketones Negative (Negative) 10/23/22 12:49 Urine Blood Neg (Negative) 10/23/22 12:49 Urine Nitrate Negative (Negative) 10/23/22 12:49 Urine Bilirubin Neg (Negative) 10/23/22 12:49 Urine Urobilinogen Neg mg/dL (Negative) 10/23/22 12:49 Ur Leukocyte Esterase Negative (Negative) 10/23/22 12:49 Discharge Plan Discharge Patient Disposition: Home Clinical Impression: Kidney stone, Acute hyperglycemia Condition: Stable Prescriptions: New ketorolac 10 mg tablet 10 mg PO Q8H PRN (Reason: pain) 3 Days Qty: 9 0RF oxybutynin chloride 5 mg tablet 5 mg PO TID PRN (Reason: bladder spasms) Qty: 14 0RF No Action aspirin [Aspir-81] 81 mg Tablet,Delayed Release (Dr/Ec) 81 mg PO DAILY ascorbic acid (vitamin C) [Vitamin C] 500 mg Tablet 500 mg PO DAILY PRN (Reason: Cold Symptoms) valsartan 320 mg tablet 320 mg PO DAILY PRN (Reason: Blood Pressure) metoprolol succinate [Toprol XL] 50 mg tablet extended release 24 hr 50 mg PO DAILY Qty: 30 0RF amlodipine 10 mg tablet 10 mg PO DAILY Qty: 30 0RF Discharge Orders: Discharge ED (Routine); Ordered 10/23/22 Ordered By: Jarrod Scales Referrals: Debbie Remy, TEST ENGINEERING MANAGER-C [Primary Care Provider] - 1 week Patient Instructions: Hyperglycemia, Kidney Stones Coding Level of Care Code ED Electronic Scanner Operator for Chg Jairo
[2022-10-23 14:34] VITALS: RESP 18; O2SAT 97
[2022-10-23 14:36] LABS: Basophils # 0.1 10^3/uL (0.0-0.1); Basophils % 0.6 %; Eosinophils # 0.3 10^3/uL (0.0-0.8); Eosinophils % 2.8 %; Hematocrit 48.6 % (37.0-47.0); Hemoglobin 15.5 g/dL (11.5-15.3); Lymphocytes # 2.7 10^3/uL (0.8-4.8); Mean Corpuscular HGB Conc 31.9 g/dL (30.0-36.0); Mean Corpuscular Hemoglobin 29.1 pg (28.0-34.0); Mean Corpuscular Volume 91.2 fl (81-99); Mean Platelet Volume 10.2 fL (7.4-10.4); Monocytes # 0.6 10^3/uL (0.2-0.9); Monocytes % 5.8 %; Neutrophils # 7.06 10^3/uL (1.8-7.7); Neutrophils % 65.3 %; Nucleated Red Blood Cells % 0 %; Platelet Count 281 10^3/cmm (130-400); Red Blood Count 5.33 10^6/uL (4.1-5.3); Red Cell Distribution Width 13.4 % (12.1-15.1); White Blood Count 10.8 10^3/uL (4.0-10.0)
[2022-10-23 14:54] LABS: Alanine Aminotransferase 69 U/L (0-33); Albumin Level 4.5 g/dL (3.5-5.2); Alkaline Phosphatase 160 U/L (35-105); Anion Gap 18.4 (5-19); Aspartate Amino Transferase 60 U/L (0-32); Blood Urea Nitrogen 10 mg/dL (6-20); Calcium 9.7 mg/dL (8.5-10.5); Carbon Dioxide 25 mmol/L (22-29); Chloride 99 mmol/L (98-107); Globulin 3.2 g/dL (1.3-4.6); Glomerular Filtration Rate 87.9 mL/min (90-130); Glucose 187 mg/dL (65-115); Osmolality Calculated 290 mOsm/kg (285-295); Potassium 4.4 mmol/L (3.5-5.1); Sodium 138 mmol/L (136-145); Total Bilirubin 0.3 mg/dL (0.15-1.2); Total Protein 7.7 g/dL (6.6-8.7)
== END 2022-10-23 15:28 | disposition home or self-care (01) ==
PROVIDERS: Emergency Provider Emergency Medicine; PCP Nurse Practitioner
DX: N20.0 Calculus of kidney (principal); R73.9 Hyperglycemia, unspecified; Z79.82 Long term (current) use of aspirin; I10 Essential (primary) hypertension; Z87.442 Personal history of urinary calculi
CPT/HCPCS: 36415; 74176; 80053; 81003; 85025; 99285

== ENCOUNTER → 2022-11-14 14:04 | Outpatient (BNVA) | payer SELFPAY | PROVIDERS: PCP Nurse Practitioner; Visit Provider Nurse Practitioner | DX: E11.65 Type 2 diabetes mellitus with hyperglycemia (principal) | CPT/HCPCS: 83036 ==

== ENCOUNTER → 2023-01-15 11:17 | Outpatient (BNVA) | payer SELFPAY | PROVIDERS: PCP Nurse Practitioner; Visit Provider Nurse Practitioner | DX: E11.65 Type 2 diabetes mellitus with hyperglycemia (principal) | CPT/HCPCS: 80053; 81000; 83036 ==

== ENCOUNTER → 2023-04-09 11:11 | Outpatient (BNVA) | payer SELFPAY | PROVIDERS: PCP Nurse Practitioner; Visit Provider Nurse Practitioner | DX: I10 Essential (primary) hypertension (principal); R00.0 Tachycardia, unspecified; E11.65 Type 2 diabetes mellitus with hyperglycemia; Z79.4 Long term (current) use of insulin | CPT/HCPCS: 80053; 83036 ==

== ENCOUNTER → 2023-09-08 12:53 | Outpatient (BNVA) | payer SELFPAY | PROVIDERS: PCP Nurse Practitioner; Visit Provider Nurse Practitioner | DX: E11.65 Type 2 diabetes mellitus with hyperglycemia (principal); Z79.4 Long term (current) use of insulin; E11.9 Type 2 diabetes mellitus without complications | CPT/HCPCS: 80053; 80061; 83036 ==

== ENCOUNTER 2024-05-23 13:29 | Emergency (ER) | payer SELFPAY ==
[2024-05-23 13:31] VITALS: BP 182/116; PULSE 82; RESP 18; TEMP 36.7; O2SAT 97; BMI 51.5
--- NOTE | 2024-05-23 13:53 | XRR_ITS ---
PROCEDURE INFORMATION: Exam: XR Lumbosacral Spine Exam date and time: 05/23/2024 2:34 PM Age: 54 years old Clinical indication: Low back pain; Additional info: [place] a pop while bent over intense left-sided pain TECHNIQUE: Imaging protocol: Radiologic exam of the lumbosacral spine. Views: 2 or 3 views. COMPARISON: CR (PELVIS, ) 05/23/2024 2:34 PM FINDINGS: Bones/joints: Moderate facet joint arthritic changes at L5/S1 level No acute fracture. Normal alignment. Soft tissues: Moderate volume of stool in the visualized right colon noted. XR/XR lumbar spine 2-3V* [id number] IMPRESSION: No acute findings.
--- NOTE | 2024-05-23 13:53 | XRR_ITS ---
PROCEDURE INFORMATION: Exam: XR Left Hip Exam date and time: 05/23/2024 2:34 PM Age: 54 years old Clinical indication: Hip pain; Left hip; Additional info: Bent a pop while bent over intense left-sided pain TECHNIQUE: Imaging protocol: Radiologic exam of the left hip. Views: 2 or 3 views hip with pelvis when performed. COMPARISON: CT kidney stone [id number] 10/23/2022 1:53 PM FINDINGS: Bones/joints: No acute fracture or dislocation identified. Minimal osteoarthritic changes. Bony prominence at the junction of superior aspect neck and head of the femur noted, developmental variant. Sclerotic changes superior aspect right acetabulum noted. Soft tissues: Unremarkable. XR/XR hip LT 2-3V wo/w pel* [id number] IMPRESSION: No acute findings.
[2024-05-23] MEDS: ketorolac 30 mg/mL INJ IVP (14:26)
[2024-05-23] MEDS: orphenadrine 30 mg/mL Inj 2 mL 60 MG IVP (14:26)
--- NOTE | 2024-05-23 14:30 | ED_ITS ---
HPI - Back Pain/Injury General: Chief Complaint: Back Pain/Injury Stated Complaint: low back pain Time Seen by Provider: 05/23/24 13:30 History of Present Illness: Patient presents to the ER after she was in the shower bent over felt a pop in her left lower back. Patient states the pain is from her left flank down to her left hip radiates to the groin. Hurts worse with movement. Related Data Home Medications Medication Instructions Recorded Confirmed ascorbic acid (vitamin C) 500 mg 500 mg PO DAILY PRN Cold Symptoms 10/17/22 05/23/24 tablet (Vitamin C) aspirin 81 mg tablet,delayed 81 mg PO DAILY 10/17/22 05/23/24 release metoprolol succinate 100 mg 100 mg PO QPM 05/23/24 05/23/24 tablet,extended release 24 hr (Toprol XL) Previous Rx's Medication Instructions Recorded acarbose 50 mg tablet 50 mg PO TID #90 tabs 06/12/23 furosemide 20 mg tablet (Lasix) 20 mg PO QAM #30 tabs 09/08/23 insulin glargine 100 See Rx Instructions SUBCUT QAM #15 09/08/23 unit-lixisenatide 33 mcg/mL mL subcutaneous pen (Soliqua 100/33) sertraline 50 mg tablet (Zoloft) 50 mg PO DAILY #30 tabs 09/08/23 valsartan 320 mg tablet 320 mg PO DAILY Blood Pressure #30 09/08/23 tabs pravastatin 20 mg tablet 20 mg PO DAILY #30 tabs 09/13/23 clonidine HCl 0.1 mg tablet 0.1 mg PO TID PRN hypertensive 11/24/23 emergency #90 tabs hydralazine 50 mg tablet 50 mg PO BID #60 tabs 12/02/23 Allergies Allergy/AdvReac Type Severity Reaction Status Date / Time metformin Allergy Severe ADR-Gastrointestinal Verified 05/23/24 13:41 Upset amlodipine [From Norvasc] AdvReac Severe Swelling Verified 05/23/24 13:41 hydromorphone [From Dilaudid] AdvReac DOES NOT Verified 05/23/24 13:41 RESPOND TO THIS PAIN MED morphine AdvReac DOES NOT Verified 05/23/24 13:41 RESPOND TO THIS PAIN MED Review of Systems General: Reports: 10 or more systems reviewed and unremarkable except in HPI and below PFSH ED PFSH: Medical History Diabetes mellitus with hyperglycemia, with long-term current use of insulin Tachycardia Pneumonia due to 2019-nCoV SUZIE on CPAP Obesity, morbid, BMI 50 or higher Asthma Renal calculus Essential (primary) hypertension Retained ureteral stent Cystitis cystica Hydroureteronephrosis History of stent insertion of renal artery BILATERAL Left ureteral calculus Surgical History Hx of appendectomy History of knee replacement Right 2000 Family History Other Adopted No pertinent family history Social History Second hand smoke exposure: No Alcohol intake: current Alcohol intake frequency: holidays/special occasions only Substance/Drug Use: never Adopted: No Caregiver/support person: No Lives independently: Yes Household members: spouse Housing: House Marital status: Number of children: 2 service: No Current occupational status: unemployed Current occupation: Works from home Do you think of yourself as: Straight/Heterosexual Current gender identity: Female Special ching needs: Yes Physical Exam Const: COMMON NORMALS: no acute distress, average body habitus, patient oriented x3, no limitations, healthy appearing, alert and well nourished HENMT: COMMON NORMALS: normocephalic, atraumatic, hearing grossly normal bilaterally, external ears normal, Normal external nose present and moist oral mucous membranes HEAD & SCALP: normocephalic and atraumatic NOSE: Normal external nose present EXTERNAL EAR: Yes external ears normal Neck/C-Spine: COMMON NORMALS: full ROM, no lymphadenopathy, supple, no meningeal signs, no JVD and Thyroid normal THYROID: Thyroid normal Chest: COMMONS NORMALS: normal inspection of the chest and normal palpation of entire chest wall Resp: COMMON NORMALS: normal respiratory effort, No retractions, No use of accessory muscles and clear to auscultation bilaterally AUSCULTATION: clear to auscultation bilaterally Cardio: COMMON NORMALS: no JVD, regular rate, regular rhythm, S1 normal heart sound present, S2 normal heart sound present, No gallops present (Cardio), No clicks present (Cardio) and No murmurs present (Cardio) RATE: regular rate RHYTHM: regular rhythm HEART SOUNDS: S1 normal heart sound present and S2 normal heart sound present GI: COMMON NORMALS: Normal to inspection, nondistended, normoactive bowel sounds present, Soft to palpation, non-tender, No hepatosplenomegaly present, no masses and no bruits PALPATION: Yes Soft to palpation and Yes No hepatosplenomegaly present Back/Pelvis: OTHER: Tender over left paraspinal lumbar musculature Neuro: COMMON NORMALS: patient oriented x3 SENSORIUM/ORIENTATION: Yes alert MENINGEAL SIGNS: Yes no meningeal signs Course Vital Signs: Vital signs: Vital Signs Temperature 98.0 F 05/23/24 13:31 Pulse Rate 82 05/23/24 13:31 Respiratory Rate 18 05/23/24 13:31 Blood Pressure 182/116 05/23/24 13:31 Pulse Oximetry 97 05/23/24 13:31 Oxygen Delivery Me thod Room Air 05/23/24 13:31 MDM - Back Pain/Injury Medical Decision Making Patient had x-rays of her hip and lumbar spine both read office negative, patient was given Toradol and Norflex, patient said it made the pain feel better. Patient be discharged. Patient declined pain medicine she said she will use her red root coconut water. Medical Records I reviewed the patient's medical records. Labs I reviewed the patient's lab results. Radiology Impressions Hip/Pelvis X-Ray 05/23/24 13:53 IMPRESSION: No acute findings. Lumbar Spine X-Ray 05/23/24 13:53 IMPRESSION: No acute findings. All radiology interpretation(s) finalized by discharge Discharge Plan Discharge Patient Disposition: Home Clinical Impression: Strain of lumbar region Qualifiers: Encounter type: initial encounter Qualified Code(s): S39.012A - Strain of muscle, fascia and tendon of lower back, initial encounter Condition: Stable Prescriptions: No Action Soliqua 100/33 100 unit-33 mcg/mL insulin pen See Rx Instructions SUBCUT QAM Qty: 15 2RF Rx Instructions: up to 50 subcutaneously every morning; valsartan 320 mg tablet 320 mg PO DAILY Qty: 30 2RF furosemide [Lasix] 20 mg tablet 20 mg PO QAM Qty: 30 2RF sertraline [Zoloft] 50 mg tablet 50 mg PO DAILY Qty: 30 2RF acarbose 50 mg tablet 50 mg PO TID Qty: 90 5RF pravastatin 20 mg tablet 20 mg PO DAILY Qty: 30 2RF clonidine HCl 0.1 mg tablet 0.1 mg PO TID PRN (Reason: hypertensive emergency) Qty: 90 2RF Rx Instructions: SBP>170 or DBP>90 hydralazine 50 mg tablet 50 mg PO BID Qty: 60 2RF metoprolol succinate [Toprol XL] 100 mg tablet extended release 24 hr 100 mg PO QPM aspirin [Aspir-81] 81 mg Tablet,Delayed Release (Dr/Ec) 81 mg PO DAILY ascorbic acid (vitamin C) [Vitamin C] 500 mg Tablet 500 mg PO DAILY PRN (Reason: Cold Symptoms) Discharge Orders: Discharge ED (Routine); Ordered 05/23/24 Ordered By: Jarrod Scales Referrals: Debbie Remy, [employer] [Primary Care Provider] - 1 week Patient Instructions: Low Back Strain (ED) Activity Restrictions/Additional Instructions: He had your low back, lumbar spine and left hip pelvis x-rayed. He did not show any acute fractures. Please continue with your coconut water and red with root to help with your pain and spasms. Please follow-up with your family practice physician within next 7 days for further evaluation and treatment as needed. Coding Level of Care Code ED [employer] Intelligence Officer Chief for Paco Gill
--- NOTE | 2024-05-23 15:06 | PC.PHAR ---
Pt states went to [place] for several months and PCP would only refill meds out of state one time so she just quit taking them all together. Medications left on pt chart with last fill dates in pharmacy notes.
[2024-05-23 16:08] VITALS: BP 156/94; PULSE 80; O2SAT 98
== END 2024-05-23 16:11 | disposition home or self-care (01) ==
PROVIDERS: Emergency Provider Emergency Medicine; PCP Nurse Practitioner
DX: S39.012A Strain of muscle, fascia and tendon of lower back, initial encounter (principal); Z79.82 Long term (current) use of aspirin; E11.65 Type 2 diabetes mellitus with hyperglycemia; I10 Essential (primary) hypertension; X58.XXXA Exposure to other specified factors, initial encounter
CPT/HCPCS: 72100; 73502; 96374; 96375; 99284; J1885; J2360

== ENCOUNTER 2024-06-04 12:17 | Emergency (ER) | payer SELFPAY ==
--- NOTE | 2024-06-04 12:17 | XR_ITS ---
WS: [id number] XR knee RT 3V* [id number] REASON FOR EXAM: injury FINDINGS: No fracture or focal bone lesion. Medial knee joint space is intact and relatively well preserved with mild subchondral sclerosis and m ild osteophytosis. There is mild narrowing of the lateral knee joint space with mild there is narrowing of the patellofe moral joint space with mild to moderate subchondral sclerosis and osteophytosis of the patella. Moder ate opposing femoral osteophytes. Subchondral sclerosis and minimal osteophytosis. XR/XR knee RT 3V* [id number] IMPRESSION: No acute abnormality. Mild osteoarthritis.
[2024-06-04 13:08] VITALS: BP 174/113; PULSE 109; RESP 17; TEMP 36.8; O2SAT 95
[2024-06-04 14:40] VITALS: BP 117/78; PULSE 107; RESP 18; O2SAT 94
[2024-06-04 15:00] VITALS: BP 175/124; PULSE 104; RESP 14; O2SAT 92
--- NOTE | 2024-06-04 15:04 | ED_ITS ---
HPI - Extremity Problem General: Chief complaint: Extremity Injury, Lower Stated complaint: RT knee inj Time Seen by Provider: 06/04/24 14:44 Source: patient Mode of arrival: wheelchair Limitations: no limitations History of Present Illness: Patient is a 54-year-old female presents to ED today with complaint of right knee pain. Patient states she was seen here 2 weeks ago after she bent over and heard a pop in her back. She has had some left hip pain following this and has been using a walker and has been overcompensating on the right side and now has right knee pain. She has noticed a small amount of swelling. Reports previous ACL repair in the knee many decades ago. She has not noticed any redness or warmth to the knee. No known injury or trauma. MD Complaint: joint swelling and joint pain Onset (ago): day(s) Pain Consistency: constant Location: right and knee Radiation: none Relieving factors: immobilization Exacerbating factors: range of motion, weight bearing, walking and palpation Associated symptoms: Reports no associated symptoms; Deny chest pain or fever(s) Related Data Home Medications Medication Instructions Recorded Confirmed ascorbic acid (vitamin C) 500 mg 500 mg PO DAILY PRN Cold Symptoms 10/17/22 05/23/24 tablet (Vitamin C) aspirin 81 mg tablet,delayed 81 mg PO DAILY 10/17/22 05/23/24 release metoprolol succinate 100 mg 100 mg PO QPM 05/23/24 05/23/24 tablet,extended release 24 hr (Toprol XL) Previous Rx's Medication Instructions Recorded acarbose 50 mg tablet 50 mg PO TID #90 tabs 06/12/23 furosemide 20 mg tablet (Lasix) 20 mg PO QAM #30 tabs 09/08/23 insulin glargine 100 See Rx Instructions SUBCUT QAM #15 09/08/23 unit-lixisenatide 33 mcg/mL mL subcutaneous pen (Soliqua 100/33) sertraline 50 mg tablet (Zoloft) 50 mg PO DAILY #30 tabs 09/08/23 valsartan 320 mg tablet 320 mg PO DAILY Blood Pressure #30 09/08/23 tabs pravastatin 20 mg tablet 20 mg PO DAILY #30 tabs 09/13/23 clonidine HCl 0.1 mg tablet 0.1 mg PO TID PRN hypertensive 11/24/23 emergency #90 tabs hydralazine 50 mg tablet 50 mg PO BID #60 tabs 12/02/23 Allergies Allergy/AdvReac Type Severity Reaction Status Date / Time metformin Allergy Severe ADR-Gastrointestinal Verified 05/23/24 13:41 Upset amlodipine [From Norvasc] AdvReac Severe Swelling Verified 05/23/24 13:41 hydromorphone [From Dilaudid] AdvReac DOES NOT Verified 05/23/24 13:41 RESPOND TO THIS PAIN MED morphine AdvReac DOES NOT Verified 05/23/24 13:41 RESPOND TO THIS PAIN MED Review of Systems Const: Denies: fever(s), chills, body aches, fatigue or malaise Card: Denies: chest pain Resp: Denies: dyspnea Musc: Reports: joint pain (R knee) and joint swelling (R knee) Neuro: Denies: numbness in extremities, weakness in extremities or sensory changes PFSH ED PFSH: Medical History Diabetes mellitus with hyperglycemia, with long-term current use of insulin Tachycardia Pneumonia due to 2019-nCoV SUZIE on CPAP Obesity, morbid, BMI 50 or higher Asthma Renal calculus Essential (primary) hypertension Retained ureteral stent Cystitis cystica Hydroureteronephrosis History of stent insertion of renal artery BILATERAL Left ureteral calculus Surgical History Hx of appendectomy History of knee replacement Right 2000 Family History Other Adopted No pertinent family history Social History Second hand smoke exposure: No Alcohol intake: current Alcohol intake frequency: holidays/special occasions only Substance/Drug Use: never Adopted: No Caregiver/support person: No Lives independently: Yes Household members: spouse Housing: House Marital status: Number of children: 2 service: No Current occupational status: unemployed Current occupation: Works from home Do you think of yourself as: Straight/Heterosexual Current gender identity: Female Special ching needs: Yes Physical Exam Const: COMMON NORMALS: no acute distress, patient oriented x3, no limitations, alert and well nourished GENERAL APPEARANCE: cooperative NUTRITIONAL APPEARANCE: obese morbidly obese (BMI 46.5) Extremity: COMMON NORMALS: capillary refill normal, no calf tenderness and no pedal edema GENERAL: Yes normal exam except as noted RIGHT LOWER EXTREMITY: Yes knee joint (TTP to medial R knee; mild edema) Right knee: Yes ROM (fairly normal ROM) and Yes neurovascular exam (normal) Neuro: COMMON NORMALS: patient oriented x3, moves all extremities, no focal motor deficits and no sensory deficits noted SENSORIUM/ORIENTATION: Yes alert Course Vital Signs: Vital signs: Vital Signs Temperature 98.2 F 06/04/24 13:08 Pulse Rate 107 H 06/04/24 14:40 Respiratory Rate 18 06/04/24 14:40 Blood Pressure 117/78 06/04/24 14:40 Pulse Oximetry 94 06/04/24 14:40 Oxygen Delivery Me thod Room Air 06/04/24 14:40 MDM - Extremity (Nontraumatic) Medical Decision Making XR of the right knee unremarkable. She has not had any known direct injury or trauma. Most likely knee exacerbated due to overcompensation from her back and left hip pain. Recommend she follow-up with her primary care provider. I do not have any concern for septic arthritis or other emergent etiology at this time for her knee discomfort. Lab Data Radiology Impressions Knee X-Ray 06/04/24 12:17 IMPRESSION: No acute abnormality. Mild osteoarthritis. All radiology interpretation(s) finalized by discharge Discharge Plan Discharge Patient Disposition: Home Clinical Impression: Knee pain, right Condition: Stable Prescriptions: No Action Soliqua 100/33 100 unit-33 mcg/mL insulin pen See Rx Instructions SUBCUT QAM Qty: 15 2RF Rx Instructions: up to 50 subcutaneously every morning; valsartan 320 mg tablet 320 mg PO DAILY Qty: 30 2RF furosemide [Lasix] 20 mg tablet 20 mg PO QAM Qty: 30 2RF sertraline [Zoloft] 50 mg tablet 50 mg PO DAILY Qty: 30 2RF acarbose 50 mg tablet 50 mg PO TID Qty: 90 5RF pravastatin 20 mg tablet 20 mg PO DAILY Qty: 30 2RF clonidine HCl 0.1 mg tablet 0.1 mg PO TID PRN (Reason: hypertensive emergency) Qty: 90 2RF Rx Instructions: SBP>170 or DBP>90 hydralazine 50 mg tablet 50 mg PO BID Qty: 60 2RF metoprolol succinate [Toprol XL] 100 mg tablet extended release 24 hr 100 mg PO QPM aspirin [Aspir-81] 81 mg Tablet,Delayed Release (Dr/Ec) 81 mg PO DAILY ascorbic acid (vitamin C) [Vitamin C] 500 mg Tablet 500 mg PO DAILY PRN (Reason: Cold Symptoms) Discharge Orders: Discharge ED (Routine); Ordered 06/04/24 Ordered By: Phyllis Patterson Referrals: Debbie Remy, [employer]THOPEDIC RADIOLOGIC TECHNOLOGIST[facility] [Primary Care Provider] - Coding Level of Care Code ED Choir Member for Paco Gill
[2024-06-04 15:46] VITALS: BP 183/122; PULSE 107; RESP 16; O2SAT 93
== END 2024-06-04 15:48 | disposition home or self-care (01) ==
PROVIDERS: Emergency Provider Physician Assistant; PCP Nurse Practitioner
DX: M25.561 Pain in right knee (principal); I10 Essential (primary) hypertension; Z79.82 Long term (current) use of aspirin; E11.65 Type 2 diabetes mellitus with hyperglycemia
CPT/HCPCS: 73562; 99283

== ENCOUNTER 2024-06-17 09:56 | Emergency (ER) | payer SELFPAY ==
[2024-06-17 10:03] VITALS: BP 186/111; PULSE 95; TEMP 36.8; O2SAT 96; BMI 46.3
[2024-06-17 11:29] VITALS: BP 182/112; PULSE 85; O2SAT 93
--- NOTE | 2024-06-17 11:30 | ED_ITS ---
HPI - Skin/Abscess/Foreign Bdy 2 General: Chief complaint: Skin/Abscess/Foreign Body Stated complaint: lump on leg Time Seen by Provider: 06/17/24 11:10 History of Present Illness: 54-year-old female presents to the emerg ency department reporting a lump in her left inguinal region surrounded by redness and notes that it is very tender. Patient does have a history of morbid obesity, diabetes, severely elevated blood pressure. Patient reports she has lost 40 pounds. She has stopped taking all of her medications. She reports she is having an ongoing yeast infection. She is unsure what her hemoglobin A1c is. She has noticed this lump over the last couple days and has reported some subjective fever. Associated symptoms: Deny vomiting Related Data Home Medications Medication Instructions Recorded Confirmed ascorbic acid (vitamin C) 500 mg 500 mg PO DAILY PRN Cold Symptoms 10/17/22 05/23/24 tablet (Vitamin C) aspirin 81 mg tablet,delayed 81 mg PO DAILY 10/17/22 05/23/24 release Previous Rx's Medication Instructions Recorded furosemide 20 mg tablet (Lasix) 20 mg PO QAM #30 tabs 09/08/23 sertraline 50 mg tablet (Zoloft) 50 mg PO DAILY #30 tabs 09/08/23 pravastatin 20 mg tablet 20 mg PO DAILY #30 tabs 09/13/23 clonidine HCl 0.1 mg tablet 0.1 mg PO TID PRN hypertensive 11/24/23 emergency #90 tabs acarbose 50 mg tablet 50 mg PO TID #90 tabs 06/17/24 doxycycline hyclate 100 mg tablet 100 mg PO BID 10 days #20 tabs 06/17/24 fluconazole 100 mg tablet 100 mg PO Q48H 14 days #7 tabs 06/17/24 hydralazine 50 mg tablet 50 mg PO BID #60 tabs 06/17/24 insulin glargine 100 unit/mL (3 20 unit (0.2 mL) SUBCUT QAM #15 mL 06/17/24 mL) subcutaneous pen (Basaglar KwikPen U-100 Insulin) metoprolol succinate 100 mg 100 mg PO QPM 30 days #30 tabs 06/17/24 tablet,extended release 24 hr (Toprol XL) Allergies Allergy/AdvReac Type Severity Reaction Status Date / Time metformin Allergy Severe ADR-Gastrointestinal Verified 06/17/24 10:07 Upset amlodipine [From Norvasc] AdvReac Severe Swelling Verified 06/17/24 10:07 hydromorphone [From Dilaudid] AdvReac DOES NOT Verified 06/17/24 10:07 RESPOND TO THIS PAIN MED morphine AdvReac DOES NOT Verified 06/17/24 10:07 RESPOND TO THIS PAIN MED Review of Systems 2 General: Reports: 10 or more systems reviewed and unremarkable except in HPI and below Narrative: Yeast infection, suspected abscess in the left inguinal region, reports chronically uncontrolled blood pressure Eyes: Denies: change in vision ENMT: Denies: throat pain Card: Denies: chest pain, edema or syncope Resp: Denies: dyspnea or productive cough GI: Denies: abdominal pain, vomiting or diarrhea : Denies: flank pain, dysuria or urinary frequency Musc: Denies: neck pain, back pain, extremity pain or extremity swelling Neuro: Denies: headache(s), numbness in extremities, weakness in extremities, lack of coordination or difficulty walking PFSH ED 2 PFSH: Medical History Diabetes mellitus with hyperglycemia, with long-term current use of insulin Tachycardia Pneumonia due to 2019-V SUZIE on CPAP Obesity, morbid, BMI 50 or higher Asthma Renal calculus Essential (primary) hypertension Retained ureteral stent Cystitis cystica Hydroureteronephrosis History of stent insertion of renal artery BILATERAL Left ureteral calculus Surgical History Hx of appendectomy History of knee replacement Right 2000 Family History Other Adopted No pertinent family history Social History Second hand smoke exposure: No Alcohol intake: current Alcohol intake frequency: holidays/special occasions only Substance/Drug Use: never Adopted: No Caregiver/support person: No Lives independently: Yes Household members: spouse Housing: House Marital status: Number of children: 2 service: No Current occupational status: unemployed Current occupation: Works from home Do you think of yourself as: Straight/Heterosexual Current gender identity: Female Special ching needs: Yes Physical Exam 2 Narrative: EXAM NARRATIVE: There is a fluctuant mass in the left inguinal region. It is not consistent with hernia. It is consistent with abscess. There are some erythema in the immediate surrounding area. It is tender and warm to the touch. Skin is intact with no discharge. Const: COMMON NORMALS: no limitations, alert and well nourished EXAM LIMITATIONS: no altered mental status HENMT: COMMON NORMALS: normocephalic, atraumatic and external ears normal H EAD & SCALP: normocephalic and atraumatic EXTERNAL EAR: Yes external ears normal MOUTH: no muffled voice Eye: COMMON NORMALS: conjunctivae normal and no scleral icterus C ONJUNCTIVA: Yes conjunctivae normal Neck/C-Spine: GENERAL: Yes normal visual inspection and Yes trachea midline Resp: COMMON NORMALS: normal respiratory effort and No use of accessory muscles Cardio: COMMON NORMALS: regular rhythm RHYTHM: regular rhythm GI: COMMON NORMALS: Soft to palpation and non-tender PALPATION: Yes Soft to palpation and No Guarding due to palpation present (GI) Extremity: COMMON NORMALS: normal to inspection Neuro: COMMON NORMALS: moves all extremities, no focal motor deficits and no sensory deficits noted SENSORIUM/ORIENTATION: Yes alert SPEECH: speech normal Psych: COMMON NORMALS: mental status grossly normal, Normal thought process present, cooperative, normal affect and speech normal SPEECH: Yes normal speech THOUGHT PROCESS: Normal thought process present Skin: COMMON NORMALS: turgor normal and no jaundice GENERAL SKIN EXAM: t urgor normal Procedures Abscess I/D Site: other (Groin left) Side (if applicable): left Sedation/analgesia: none Local Anesthetic: lidocaine 1% (With epi) and bupivacaine 0.5% Amount of anesthesia used (mL): 20 Technique: incised with #11 blade Amount of fluid expressed (mL): 4 Irrigation: No Packing used?: none Course 2 Vital Signs: Vital signs: Vital Signs Temperature 98.2 F 06/17/24 10:03 Pulse Rate 90 06/17/24 13:37 Blood Pressure 157/107 06/17/24 13:37 Pulse Oximetry 94 06/17/24 13:37 Oxygen Delivery Me thod Room Air 06/17/24 10:03 MDM - Skin/Abscess/Foreign Bdy Medicial Decision Making Patient presents with left inguinal abscess. The patient is diabetic and has not been taking any medications for it. She likely has an uncontrolled A1c which is led to her yeast infection and this abscess. We will go ahead and check her A1c and blood sugar today. The patient is not opposed to getting back on diabetes medications while she works towards diet and exercise. Patient also has extremely elevated blood pressure and is asymptomatic. She reports 200/1 20s is actually pretty low for her. She is not opposed to getting back on blood pressure medication until she can continue to lose weight and control at with diet. Plan to perform I&D of the abscess. Patient drove herself here. She would like to try some nonopiate and nonnarcotic pain medication and then use local anesthesia for the I&D. Will go ahead and put her on doxycycline. She has not had anything to eat or drink today and doxycycline is irritating to the stomach so we will give her a dose of IV rather than oral at this time. The discharge from the abscess will be sent for culture. Update I&D was performed. Purulent discharge was drained. Culture was sent. Glucose 361 without signs of DKA. White count borderline elevated at 10.5. Patient is not septic. Patient's blood pressure improved to 157/107; this is still high but it is dramatically improved. Patient will be prescribed metoprolol and hydralazine for blood pressure, Lantus and acarbose for diabetes, and doxycycline for abscess. Diflucan for her yeast infection. Patient encouraged to follow-up with her PCP promptly as she needs ongoing treatment. I do think that diet and exercise are the best treatment but I encouraged her to continue taking medications until she achieves those goals. Lab Data 06/17/24 11:35 06/17/24 11:35 Laboratory Results WBC 10.53 10^3/uL (3.29-11.43) 06/17/24 11:35 RBC 4.92 10^6/uL (3.85-5.65) 06/17/24 11:35 Hgb 14.50 g/dL (11.27-16.99) 06/17/24 11:35 Hct 44.9 % (36-47) 06/17/24 11:35 MCV 91.3 fl (85-98) 06/17/24 11:35 MCH 29.5 pg (27-33) 06/17/24 11:35 MCHC 32.3 g/dL (30-55) 06/17/24 11:35 RDW 13.0 % (12.1-15.1) 06/17/24 11:35 Plt Count 242 10^3/cmm (157-399) 06/17/24 11:35 MPV 9.5 fL (7.4-10.4) 06/17/24 11:35 Neut % (Auto) 66.8 % 06/17/24 11:35 Lymph % (Auto) 23.8 % 06/17/24 11:35 [place] % (Auto) 5.3 % 06/17/24 11:35 Eos % (Auto) 2.9 % 06/17/24 11:35 Baso % (Auto) 0.5 % 06/17/24 11:35 Neut # (Auto) 7.03 10^3/uL (1.8-7.7) 06/17/24 11:35 Lymph # (Auto) 2.5 10^3/uL (0.8-4.8) 06/17/24 11:35 [place] # (Auto) 0.6 10^3/uL (0.2-0.9) 06/17/24 11:35 Eos # (Auto) 0.3 10^3/uL (0.0-0.8) 06/17/24 11:35 Baso # (Auto) 0.1 10^3/uL (0.0-0.1) 06/17/24 11:35 Nucleated RBC % (auto) 0 % 06/17/24 11:35 Nucleated RBCs # 0.0 /100WBC 06/17/24 11:35 Sodium 136 mmol/L (136-145) 06/17/24 11:35 Potassium 4.1 mmol/L (3.5-5.1) 06/17/24 11:35 Chloride 99 mmol/L (98-107) 06/17/24 11:35 Carbon Dioxide 25 mmol/L (22-29) 06/17/24 11:35 Anion Gap 16.1 (5-19) 06/17/24 11:35 BUN 6 mg/dL (6-20) 06/17/24 11:35 Creatinine 0.5 mg/dL (0.5-0.9) 06/17/24 11:35 GFR Calculation 128.6 mL/min (90-130) 06/17/24 11:35 Glucose 361 mg/dL (65-115) H 06/17/24 11:35 Estimat Average Glucose 315 06/17/24 11:35 Hemoglobin A1c 12.6 % (4.0-6.0) H 06/17/24 11:35 Calculated Osmolality 294 mOsm/kg (285-295) 06/17/24 11:35 Calcium 9.4 mg/dL (8.5-10.5) 06/17/24 11:35 No radiology studies performed this visit Discharge Plan Discharge Patient Disposition: Home Clinical Impression: Abscess of groin, left, Hypertension, uncontrolled, Uncontrolled diabetes mellitus, Vaginal yeast infection Condition: Stable Prescriptions: New insulin glargine [Basaglar KwikPen U-100 Insulin] 100 unit/mL (3 mL) insulin pen 20 unit SUBCUT QAM Qty: 15 0RF doxycycline hyclate 100 mg tablet 100 mg PO BID 10 Days Qty: 20 0RF fluconazole 100 mg tablet 100 mg PO Q48H 14 Days Qty: 7 0RF Continued metoprolol succinate [Toprol XL] 100 mg tablet extended release 24 hr 100 mg PO QPM 30 Days Qty: 30 1RF acarbose 50 mg tablet 50 mg PO TID Qty: 90 1RF hydralazine 50 mg tablet 50 mg PO BID Qty: 60 2RF Discontinued Soliqua 100/33 100 unit-33 mcg/mL insulin pen See Rx Instructions SUBCUT QAM Qty: 15 2RF Rx Instructions: up to 50 subcutaneously every morning; valsartan 320 mg tablet 320 mg PO DAILY Qty: 30 2RF No Action furosemide [Lasix] 20 mg tablet 20 mg PO QAM Qty: 30 2RF sertraline [Zoloft] 50 mg tablet 50 mg PO DAILY Qty: 30 2RF pravastatin 20 mg tablet 20 mg PO DAILY Qty: 30 2RF clonidine HCl 0.1 mg tablet 0.1 mg PO TID PRN (Reason: hypertensive emergency) Qty: 90 2RF Rx Instructions: SBP>170 or DBP>90 aspirin [Aspir-81] 81 mg Tablet,Delayed Release (Dr/Ec) 81 mg PO DAILY ascorbic acid (vitamin C) [Vitamin C] 500 mg Tablet 500 mg PO DAILY PRN (Reason: Cold Symptoms) Discharge Orders: Discharge ED (Routine); Ordered 06/17/24 Ordered By: Saul Buck Referrals: Debbie Remy FNP-C [Primary Care Provider] - 4-7 days (Follow-up high blood sugar, vaginal yeast infection, chronic hypertension, and abscess s/p I&D) Discharge Diet: Diabetic Patient Instructions: Abscess (ED), Hypertension (ED), Diabetic Hyperglycemia (ED), Diabetes and Your Skin (ED), Hypertension and Diabetes (ED) Activity Restrictions/Additional Instructions: You have been prescribed hydralazine and metoprolol for your blood pressure. You have been prescribed acarbose and glargine for your diabetes. You have been prescribed doxycycline for your abscess. You have been prescribed fluconazole for your yeast infection. Please take probiotics from [id number]. It is extremely important that you follow-up with your doctor in the next 4 to 7 days to see how your blood sugar, blood pressure and abscess are doing. If you are unable to get a hold of your doctor because of the holiday, you may have to follow-up in urgent care or emergent care. Coding Level of Care Code ED Clinical Research Associate for Paco Gill
[2024-06-17] MEDS: labetalol 5 mg/mL SDV 20mL 20 MG IVP (11:36)
[2024-06-17 11:38] VITALS: BP 204/125
[2024-06-17] MEDS: losartan 50 mg Tablet PO (11:38)
[2024-06-17] MEDS: acetaminophen 1,000 MG/100 ML PIGGYBACK 400 MG IV (11:39)
[2024-06-17] MEDS: doxycycline 100 MG in sodium chloride 0.9% (plus) 100 ML IV (11:40)
[2024-06-17 11:58] LABS: Basophils # 0.1 10^3/uL (0.0-0.1); Basophils % 0.5 %; Eosinophils # 0.3 10^3/uL (0.0-0.8); Eosinophils % 2.9 %; Hematocrit 44.9 % (36-47); Lymphocytes # 2.5 10^3/uL (0.8-4.8); Lymphocytes % 23.8 %; Mean Corpuscular HGB Conc 32.3 g/dL (30-55); Mean Corpuscular Hemoglobin 29.5 pg (27-33); Mean Corpuscular Volume 91.3 fl (85-98); Mean Platelet Volume 9.5 fL (7.4-10.4); Monocytes # 0.6 10^3/uL (0.2-0.9); Monocytes % 5.3 %; Neutrophils # 7.03 10^3/uL (1.8-7.7); Neutrophils % 66.8 %; Nucleated Red Blood Cells % 0 %; Platelet Count 242 10^3/cmm (157-399); Red Blood Count 4.92 10^6/uL (3.85-5.65); White Blood Count 10.53 10^3/uL (3.29-11.43)
[2024-06-17 12:09] LABS: Anion Gap 16.1 (5-19); Blood Urea Nitrogen 6 mg/dL (6-20); Calcium 9.4 mg/dL (8.5-10.5); Carbon Dioxide 25 mmol/L (22-29); Chloride 99 mmol/L (98-107); Creatinine Clr Calc Pharmacy 166.1157; Glomerular Filtration Rate 128.6 mL/min (90-130); Glucose 361 mg/dL (65-115); Osmolality Calculated 294 mOsm/kg (285-295); Potassium 4.1 mmol/L (3.5-5.1); Sodium 136 mmol/L (136-145)
[2024-06-17 12:11] LABS: Estmated Average Glucose 315; Hemoglobin A1C 12.6 % (4.0-6.0)
[2024-06-17] MEDS: BUPivacaine 0.5% INJ 30 mL INJECTION (12:26)
[2024-06-17] MEDS: lidocaine-epi 1% 20 mL INJ INJECTION (12:27)
[2024-06-17 13:37] VITALS: BP 157/107; PULSE 90; O2SAT 94
== END 2024-06-17 13:50 | disposition home or self-care (01) ==
PROVIDERS: Emergency Provider Emergency Medicine; PCP Nurse Practitioner
DX: L02.214 Cutaneous abscess of groin (principal); E11.65 Type 2 diabetes mellitus with hyperglycemia; I10 Essential (primary) hypertension; B37.31 Acute candidiasis of vulva and vagina; Z79.82 Long term (current) use of aspirin
CPT/HCPCS: 10060; 80048; 83036; 85025; 87070; 87075; 87205; 96365; 96375; 99284; J0131; J3490

== ENCOUNTER 2024-06-24 11:58 | Emergency (ER) | payer SELFPAY ==
[2024-06-24 12:14] VITALS: BP 177/95; PULSE 76; RESP 18; TEMP 36.8; O2SAT 92; BMI 46.3
--- NOTE | 2024-06-24 13:21 | US_ITS ---
WS: [id number] ULTRASOUND SOFT TISSUES LEFT groin HISTORY: left groin, cellulitis potential abscess COMPARISON: None available. TECHNIQUE: 2-D and color Doppler imaging is submitted. Ultrasound performed in the LEFT groin. There is a complex fluid collection with low-level echoes. Th is is not a well-formed collection and there is no hyperemic wall. Focal collection measures 1.3 x 1. 5 x 1.4 cm. Small reactive lymph node in the LEFT groin also. US/US soft tissue/extremity [id number] IMPRESSION: Phlegmonous collection in the LEFT groin with low-level echoes. Collection avis ures 1.3 x 1.5 x 1.4 cm. No well-formed abscess.
--- NOTE | 2024-06-24 13:24 | ED_ITS ---
HPI - Skin/Abscess/Foreign Bdy General: Chief complaint: Skin/Abscess/Foreign Body Stated complaint: lump on groin Time Seen by Provider: 06/24/24 13:06 Source: patient Mode of arrival: ambulatory Limitations: no limitations History of Present Illness: Patient is a 54-year-old female with past medical history of diabetes uncontrolled who presents the emergency department with recurrent left groin str ain. She was seen on 06/17 where she had a left inguinal abscess incised and drained, this was subsequently cultured and grew out group A strep. She was started on doxycycline, states that she has been taking this as prescribed. She has not followed up with primary care and has not been tracking her blood sugars. States that this was more painful, and seems more hard and erythematous than the prior 1 which was more squishy. She is not reporting any abdominal pain, nausea or vomiting, or systemic signs of illness. She also has been being treated for a vaginal yeast infection. She does clarify that this is a different lesion, farther up than the prior 1 drained a week ago. MD complaint: abscess/boil Onset (ago): week(s) Location: genitals Pain Consistency: constant Relieving factors: none Context: recent antibiotic and other (Recent adjacent abscess drained) Associated symptoms: Deny chills, fever(s), nausea or vomiting Treatments prior to arrival: antibiotic Related Data Previous Rx's Medication Instructions Recorded acarbose 50 mg tablet 50 mg PO TID #90 tabs 06/17/24 fluconazole 100 mg tablet 100 mg PO Q48H 14 days #7 tabs 06/17/24 hydralazine 50 mg tablet 50 mg PO BID #60 tabs 06/17/24 insulin glargine 100 unit/mL (3 20 unit (0.2 mL) SUBCUT QAM #15 mL 06/17/24 mL) subcutaneous pen (Basaglar KwikPen U-100 Insulin) metoprolol succinate 100 mg 100 mg PO QPM 30 days #30 tabs 06/17/24 tablet,extended release 24 hr (Toprol XL) sulfamethoxazole 800 1 tab PO BID 10 days #20 tabs 06/24/24 mg-trimethoprim 160 mg tablet (Bactrim DS) Allergies Allergy/AdvReac Type Severity Reaction Status Date / Time metformin Allergy Severe ADR-Gastrointestinal Verified 06/24/24 12:17 Upset amlodipine [From Norvasc] AdvReac Severe Swelling Verified 06/24/24 12:17 hydromorphone [From Dilaudid] AdvReac DOES NOT Verified 06/24/24 12:17 RESPOND TO THIS PAIN MED morphine AdvReac DOES NOT Verified 06/24/24 12:17 RESPOND TO THIS PAIN MED Review of Systems General: Reports: 10 or more systems reviewed and unremarkable except in HPI and below Const: Denies: fever(s) or chills Card: Denies: chest pain Resp: Denies: dyspnea GI: Denies: abdominal pain, nausea, vomiting or diarrhea Musc: Denies: extremity pain or joint pain Skin/Breast: Reports: erythema, skin pain, skin tenderness and new lesions; Denies: rash Neuro: Denies: headache(s) PFSH ED PFSH: Medical History Diabetes mellitus with hyperglycemia, with long-term current use of insulin Tachycardia Pneumonia due to 2019-nCoV SUZIE on CPAP Obesity, morbid, BMI 50 or higher Asthma Renal calculus Essential (primary) hypertension Retained ureteral stent Cystitis cystica Hydroureteronephrosis History of stent insertion of renal artery BILATERAL Left ureteral calculus Surgical History Hx of appendectomy History of knee replacement Right 2000 Family History Other Adopted No pertinent family history Social History Second hand smoke exposure: No Alcohol intake: current Alcohol intake frequency: holidays/special occasions only Substance/Drug Use: never Adopted: No Caregiver/support person: No Lives independently: Yes Household members: spouse Housing: House Marital status: Number of children: 2 service: No Current occupational status: unemployed Current occupation: Works from home Do you think of yourself as: Straight/Heterosexual Current gender identity: Female Special ching needs: Yes Physical Exam Const: COMMON NORMALS: no acute distress, average body habitus, patient oriented x3, no limitations, healthy appearing, alert and well nourished HENMT: COMMON NORMALS: normocephalic and atraumatic HEAD & SCALP: normocephalic and atraumatic Neck/C-Spine: COMMON NORMALS: full ROM, no lymphadenopathy, supple and no meningeal signs Resp: COMMON NORMALS: normal respiratory effort, No use of accessory muscles and clear to auscultation bilaterally AUSCULTATION: clear to auscultation bilaterally Cardio: COMMON NORMALS: regular rate and regular rhythm RATE: regular rate RHYTHM: regular rhythm Extremity: COMMON NORMALS: full ROM and capillary refill normal Neuro: COMMON NORMALS: patient oriented x3 SENSORIUM/ORIENTATION: Yes alert MENINGEAL SIGNS: Yes no meningeal signs Skin: COMMON NORMALS: turgor normal NARRATIVE SKIN EXAM: Large area of erythema to left groin region. Large circumferential palpable area of induration, no appreciated fluctuance at this time or active drainage. The entire area is damp and there is a soaked pad of gauze between patient's pannus and left thigh. GENERAL SKIN EXAM: turgor normal Course Vital Signs: Vital signs: Vital Signs Temperature 98.2 F 06/24/24 12:14 Pulse Rate 76 06/24/24 12:14 Respiratory Rate 18 06/24/24 12:14 Blood Pressure 177/95 06/24/24 12:14 Pulse Oximetry 92 06/24/24 12:14 Oxygen Delivery Me thod Room Air 06/24/24 12:14 MDM - Skin/Abscess/Foreign Bdy Medicial Decision Making Patient was here a week ago where she had an abscess drained, was started on Doxy. Wound culture has since grown out group B strep. Presented with a new area of erythema just superior to this, as well as area of induration. Ult rasound was obtained, it did not demonstrate any drainable abscess but did show signs of a cellulitis/phlegmon formation. Will treat with a more appropriate antibiotic, Bactrim. She is diabetic and stating her sugars have been much more controlled after starting medication, I have no concern for Selena's gangrene at this time but I do believe that the delayed infection healing related to her diabetes. Because of this I instructed her to please follow-up with her primary care provider for routine reevaluation at her earliest convenience. And if she begins to develop any severe worsening of redness, pain, or uncontrolled sugars to return to the emergency department immediately. Patient agrees with this plan, discharged home at this time. There was also evidence of insufficient wound care as it was very damp in the intertriginous region where the redness was, just below her pannus. Informed her to keep this area dry to allow for proper healing, as I believe there may have been some delay in healing from the prior 1 due to the damp environment. Lab Data Radiology Impressions Soft Tissue Ultrasound 06/24/24 13:21 IMPRESSION: Phlegmonous collection in the LEFT groin with low-level echoes. Collection measures 1.3 x 1.5 x 1.4 cm. No well-formed abscess. All radiology interpretation(s) finalized by discharge Discharge Plan Discharge Patient Disposition: Home Clinical Impression: Cellulitis of groin, left Condition: Stable Prescriptions: New sulfamethoxazole-trimethoprim [Bactrim DS] 800-160 mg tablet 1 tab PO BID 10 Days Qty: 20 0RF Discontinued doxycycline hyclate 100 mg tablet 100 mg PO BID 10 Days Qty: 20 0RF No Action insulin glargine [Basaglar KwikPen U-100 Insulin] 100 unit/mL (3 mL) insulin pen 20 unit SUBCUT QAM Qty: 15 0RF metoprolol succinate [Toprol XL] 100 mg tablet extended release 24 hr 100 mg PO QPM 30 Days Qty: 30 1RF acarbose 50 mg tablet 50 mg PO TID Qty: 90 1RF hydralazine 50 mg tablet 50 mg PO BID Qty: 60 2RF fluconazole 100 mg tablet 100 mg PO Q48H 14 Days Qty: 7 0RF Discharge Orders: Discharge ED (Routine); Ordered 06/24/24 Ordered By: David Munguia Referrals: Debbie Remy, L[employer] SUG[employer] CUTTER-C [Primary Care Provider] - Patient Instructions: Cellulitis (ED) Activity Restrictions/Additional Instructions: See attached patient instructions for further education. Make sure that the area is dry as this will allow for proper healing. Begin taking Bactrim, stop taking your doxycycline. Follow-up with your primary care provider. If redness or swelling continues to worsen, if your blood sugars get too elevated, or any other concerning systemic signs of illness, please return immediately to the emergency department. Coding Level of Care Code ED Acid Pumper for Paco Gill
[2024-06-24 14:37] VITALS: BP 141/73; PULSE 76; O2SAT 98
== END 2024-06-24 14:38 | disposition home or self-care (01) ==
PROVIDERS: Emergency Provider Physician Assistant; PCP Nurse Practitioner
DX: L03.314 Cellulitis of groin (principal); Z79.4 Long term (current) use of insulin; E11.9 Type 2 diabetes mellitus without complications; I10 Essential (primary) hypertension
CPT/HCPCS: 76882; 99284

== ENCOUNTER 2024-06-29 12:16 | Emergency (ER) | payer SELFPAY ==
[2024-06-29 12:25] VITALS: BP 164/105; PULSE 74; TEMP 36.7; O2SAT 96
[2024-06-29 13:12] VITALS: BP 171/108; PULSE 75; RESP 16; O2SAT 95
--- NOTE | 2024-06-29 13:20 | CT_ITS ---
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 Findings: The ventricular system is normal without shift. No recent infarct or hemorrhage is seen. There are no abnormal intracerebral masses. 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 The cerebellum and brainstem are not remarkable. Bony windows of the skull and skull base show no fractures or erosions. The mastoid air cells, equine internship al auditory canals, sella turcica, intraorbital contents, and paranasal sinuses are unremarkable. CT/CT head wo con* [id number] Impression: Negative CT scan of the head
--- NOTE | 2024-06-29 13:20 | CTR_ITS ---
PROCEDURE INFORMATION: Exam: CTA Head With Contrast, Arteriography Exam date and time: 06/29/2024 2:09 PM Age: 54 years old Clinical indication: Pain; Patient HX: Hypertension with headache. Blurry vision. PT reports having a HX of cerebral aneurysm with rupture states no treatment or intervention; Additional info: Reported HX of cerebral aneurism with rupture, C/O current HTN with WANG TECHNIQUE: Imaging protocol: Computed tomographic angiography of the head with contrast. Exam focused on the arteries. 3D rendering (Not supervised by radiologist): MIP and/or 3D reconstructed images were created by the technologist. Radiation optimization: All CT scans at this facility use at least one of these dose optimization techniques: automated exposure control; mA and/or kV adjustment per patient size (includes targeted exams where dose is matched to clinical indication); or iterative reconstruction. Contrast material: OMNI 350; Contrast volume: 100 ml; Contrast route: INTRAVENOUS (IV); COMPARISON: CT head wo con* [id number] 06/29/2024 2:06 PM RADIATION DOSE METRICS: Total DLP (mGy-cm): 530.65 FINDINGS: ANTERIOR CIRCULATION: Right internal carotid artery: Intracranial segment is patent with no significant stenosis. No aneurysm. Right middle cerebral artery: No occlusion or significant stenosis. No aneurysm. Right anterior cerebral artery: No occlusion or significant stenosis. No aneurysm. Left internal carotid artery: Intracranial segment is patent with no significant stenosis. No aneurysm. Left middle cerebral artery: No occlusion or significant stenosis. No aneurysm. Left anterior cerebral artery: No occlusion or significant stenosis. No aneurysm. POSTERIOR CIRCULATION: Right vertebral artery: No occlusion or significant stenosis. No aneurysm. Left vertebral artery: No occlusion or significant stenosis. No aneurysm. Basilar artery: No occlusion or significant stenosis. No aneurysm. Right posterior cerebral artery: No occlusion or significant stenosis. No aneurysm. Left posterior cerebral artery: No occlusion or significant stenosis. No aneurysm. Brain: No definite mass, mass effect, or midline shift. Cerebral ventricles: No ventriculomegaly. Bones/joints: Unremarkable. No acute fracture. Soft tissues: Unremarkable. PROCEDURE INFORMATION: Exam: CTA Neck With Contrast Exam date and time: 06/29/2024 2:09 PM Age: 54 years old Clinical indication: Pain; Patient HX: Hypertension with headache. Blurry vision. PT reports having a HX of cerebral aneurysm with rupture states no treatment or intervention; Additional info: Reported HX of cerebral aneurism with rupture, C/O current HTN with WANG TECHNIQUE: Imaging protocol: Computed tomographic angiography of the neck with contrast. Exam focused on the cervical segments of the vasculature. 3D rendering (Not supervised by radiologist): MIP and/or 3D reconstructed images were created by the technologist. Radiation optimization: All CT scans at this facility use at least one of these dose optimization techniques: automated exposure control; mA and/or kV adjustment per patient size (includes targeted exams where dose is matched to clinical indication); or iterative reconstruction. Contrast material: OMNI 350; Contrast volume: 100 ml; Contrast route: INTRAVENOUS (IV); COMPARISON: CT head wo con* [id number] 06/29/2024 2:06 PM RADIATION DOSE METRICS: Total DLP (mGy-cm): 530.65 FINDINGS: Right common carotid artery: No significant stenosis. No dissection or occlusion. Right internal carotid artery: Extracranial segment is patent with no significant stenosis. No dissection or occlusion. Right external carotid artery: No occlusion or significant stenosis. Left common carotid artery: No significant stenosis. No dissection or occlusion. Left internal carotid artery: Extracranial segment is patent with no significant stenosis. No dissection or occlusion. Left external carotid artery: No occlusion or significant stenosis. Right vertebral artery: No significant stenosis. No dissection or occlusion. Left vertebral artery: No significant stenosis. No dissection or occlusion. Soft tissues: No significant soft tissue swelling. Bones/joints: No acute fracture. CT/CT angio headneck* [id number] IMPRESSION: No large vessel stenosis or occlusion. No obvious aneurysm. IMPRESSION: No carotid stenosis. REFERENCES: NASCET CRITERIA. The degree of stenosis in the cervical segment of the internal carotid artery is based on NASCET criteria. Normal is no stenosis. Mild is less than 50% stenosis. Moderate is 50-69% stenosis. Severe is 70% to 99% stenosis. Total occlusion is no detectable patent lumen.
--- NOTE | 2024-06-29 13:20 | XR_ITS ---
WS: [id number] Portable AP upright chest, 06/29/2024 Clinical Data: htn Comparison: Portable chest, 10/17/2022 Findings: No nodules, masses or effusions are seen. The heart is normal. The pulmonary vascularity is not increased. No pneumonia or pneumothorax is seen. The aortic arch and descending thoracic aorta s how tortuosity. XR/XR chest 1V portable [id number] Impression: Atherosclerosis.
--- NOTE | 2024-06-29 13:25 | ECG_ITS ---
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 Measurements Intervals Whitney Rate: 72 P: 62 CT: 167 QRS: -38 QRSD: 136 T: 20 QT: 394 QTc: 433 Interpretive Statements SINUS RHYTHM LEFT AXIS DEVIATION [QRS AXIS < -30] RIGHT BUNDLE BRANCH BLOCK [120+ ms QRS DURATION, UPRIGHT V1, 40+ ms S IN I/aVL/V4/V5/V6] MINIMAL VOLTAGE CRITERIA FOR LVH, CONSIDER NORMAL VARIANT [MEETS CRITERIA IN ONE OF: R(aVL), S(V1), R(V5), R(V5/V6)+S(V1)] Compared to ECG 03/31/2021 10:24:22 No significant changes Electronically Signed On 06-29-2024 17:48:04 NUTRITION SERVICES AIDE by Brien Box M.D. [email or web address]
--- NOTE | 2024-06-29 13:42 | W.ED.RECABL ---
HPI - Recheck/Abnormal Lab/Rx General: Chief Complaint: Recheck/Abnormal Lab/Rx Stated Complaint: seeing double Time Seen by Provider: 06/29/24 13:07 History of Present Illness: 54-year-old female presents to the emergency department chief complaint of headache as well as extremely high blood pressure patient endorses she has been previously seen by cardiology. She reports that she is on hydralazine knocks on the medication for high blood pressure she reports a pre-existing history of reported cerebral aneurysm with rupture that happened over a year ago. The patient reports that her blood pressure prior to arrival was 220s over 100 she does endorse having a headache due to the high blood pressure that is within proved she does report when her blood pressure was extremely elevated she was having double vision that has not since resolved she reported no other focal neurodeficits or any other concerns. The patient reported no chest pain palpitations or shortness of breath or any other associated symptoms. Related Data Previous Rx's Medication Instructions Recorded acarbose 50 mg tablet 50 mg PO TID #90 tabs 06/17/24 fluconazole 100 mg tablet 100 mg PO Q48H 14 days #7 tabs 06/17/24 hydralazine 50 mg tablet 50 mg PO BID #60 tabs 06/17/24 insulin glargine 100 unit/mL (3 20 unit (0.2 mL) SUBCUT QAM #15 mL 06/17/24 mL) subcutaneous pen (Basaglar KwikPen U-100 Insulin) metoprolol succinate 100 mg 100 mg PO QPM 30 days #30 tabs 06/17/24 tablet,extended release 24 hr (Toprol XL) sulfamethoxazole 800 1 tab PO BID 10 days #20 tabs 06/24/24 mg-trimethoprim 160 mg tablet (Bactrim DS) clonidine HCl 0.1 mg tablet 0.1 mg PO Q6H PRN hypertensive 06/29/24 emergency 24 hours #20 tabs Allergies Allergy/AdvReac Type Severity Reaction Status Date / Time metformin Allergy Severe ADR-Gastrointestinal Verified 06/29/24 12:29 Upset amlodipine [From Norvasc] AdvReac Severe Swelling Verified 06/29/24 12:29 hydromorphone [From Dilaudid] AdvReac DOES NOT Verified 06/29/24 12:29 RESPOND TO THIS PAIN MED morphine AdvReac DOES NOT Verified 06/29/24 12:29 RESPOND TO THIS PAIN MED Review of Systems General: Reports: 10 or more systems reviewed and unremarkable except in HPI and below Const: Denies: fever(s), chills, fatigue or malaise Eyes: Reports: change in vision; Denies: blurry vision Card: Denies: chest pain or palpitations Resp: Denies: dyspnea or productive cough GI: Denies: abdominal pain, nausea or vomiting : Denies: flank pain Musc: Denies: extremity pain or extremity swelling Skin/Breast: Denies: rash or pruritus Neuro: Reports: headache(s) Psych: Denies: anxiety or depression Jameson/Lymph: Denies: easy bleeding All/Imm: Denies: urticaria, throat swelling or facial swelling PFSH ED PFSH: Medical History Diabetes mellitus with hyperglycemia, with long-term current use of insulin Tachycardia Pneumonia due to 2018- SUZIE on CPAP Obesity, morbid, BMI 50 or higher Asthma Renal calculus Essential (primary) hypertension Retained ureteral stent Cystitis cystica Hydroureteronephrosis History of stent insertion of renal artery BILATERAL Left ureteral calculus Surgical History Hx of appendectomy History of knee replacement Right 2000 Family History Other Adopted No pertinent family history Social History Second hand smoke exposure: No Alcohol intake: current Alcohol intake frequency: holidays/special occasions only Substance/Drug Use: never Adopted: No Caregiver/support person: No Lives independently: Yes Household members: spouse Housing: House Marital status: Number of children: 2 service: No Current occupational status: unemployed Current occupation: Works from home Do you think of yourself as: Straight/Heterosexual Current gender identity: Female Special ching needs: Yes Physical Exam Narrative: EXAM NARRATIVE: No focal neurodeficit appreciated GCS of 15 NIH of 0 Const: COMMON NORMALS: no acute distress, patient oriented x3 and healthy appearing HENMT: COMMON NORMALS: normocephalic and atraumatic HEAD & SCALP: normocephalic and atraumatic Eye: COMMON NORMALS: Equal, round and reactive pupils present and EOMs intact bilaterally PUPIL: Yes Equal, round and reactive pupils present Neck/C-Spine: COMMON NORMALS: full ROM, supple and no JVD Lymph: LYMPHATIC: no lymphadenopathy noted Chest: COMMONS NORMALS: normal inspection of the chest and normal palpation of entire chest wall Resp: COMMON NORMALS: normal respiratory effort, No retractions and clear to auscultation bilaterally EFFORT & INSPECTION: Yes able to speak in complete sentences and Yes symmetric chest movement AUSCULTATION: clear to auscultation bilaterally Cardio: COMMON NORMALS: no JVD, regular rate and regular rhythm RATE: regular rate RHYTHM: regular rhythm GI: COMMON NORMALS: Normal to inspection, nondistended, normoactive bowel sounds present, Soft to palpation and non-tender INSPECTION: Yes normal to inspection PALPATION: Yes Soft to palpation : COMMON NORMALS: Yes no CVA tenderness BLADDER/KIDNEY EXAM: Yes no CVA tenderness Back/Pelvis: COMMON NORMALS: no CVA tenderness Extremity: COMMON NORMALS: normal to inspection and full ROM Neuro: COMMON NORMALS: patient oriented x3, CN's II-XII intact bilaterally, moves all extremities and no focal motor deficits Psych: COMMON NORMALS: mental status grossly normal, Normal thought process present, cooperative and normal affect THOUGHT PROCESS: Normal thought process present Skin: COMMON NORMALS: no rashes or lesions noted GENERAL SKIN EXAM: no rashes or lesions noted Course Vital Signs: Vital signs: Vital Signs Temperature 98.1 F 06/29/24 12:25 Pulse Rate 86 06/29/24 15:31 Respiratory Rate 16 06/29/24 15:31 Blood Pressure 143/95 06/29/24 15:31 Pulse Oximetry 94 06/29/24 15:31 Oxygen Delivery Me thod Room Air 06/29/24 15:31 MDM - Recheck/Abnormal Lab/Rx Medical Decision Making Due to patient's symptoms and condition lab work and imaging will be obtained we will continue to follow. Imaging has come back unremarkable CT of the head with and without contrast did not reveal any obvious cerebral aneurysms or rupture or any other concerning findings patient is currently asymptomatic blood pressure is currently 142/78 patient is stable for discharge home at this time we will be providing her some Catapres for breakthrough high blood pressure advised further follow-up with primary care in 2 to 3 days and was to return in the interim if any of her symptoms persist or worse. Lab Data 06/29/24 13:53 06/29/24 13:53 Radiology Impressions Chest X-Ray 06/29/24 13:20 Impression: Atherosclerosis. Head CT 06/29/24 13:20 Impression: Negative CT scan of the head Head/Neck CTA 06/29/24 13:20 IMPRESSION: No large vessel stenosis or occlusion. No obvious aneurysm. IMPRESSION: No carotid stenosis. REFERENCES: NASCET CRITERIA. The degree of stenosis in the cervical segment of the internal carotid artery is based on NASCET criteria. Normal is no stenosis. Mild is less than 50% stenosis. Moderate is 50-69% stenosis. Severe is 70% to 99% stenosis. Total occlusion is no detectable patent lumen. Laboratory Results WBC 12.03 10^3/uL (3.29-11.43) H 06/29/24 13:53 RBC 4.98 10^6/uL (3.85-5.65) 06/29/24 13:53 Hgb 14.40 g/dL (11.27-16.99) 06/29/24 13:53 Hct 44.9 % (36-47) 06/29/24 13:53 MCV 90.2 fl (85-98) 06/29/24 13:53 MCH 28.9 pg (27-33) 06/29/24 13:53 MCHC 32.1 g/dL (30-55) 06/29/24 13:53 RDW 13.2 % (12.1-15.1) 06/29/24 13:53 Plt Count 312 10^3/cmm (157-399) 06/29/24 13:53 MPV 9.6 fL (7.4-10.4) 06/29/24 13:53 Neut % (Auto) 59.1 % 06/29/24 13:53 Lymph % (Auto) 31.5 % 06/29/24 13:53 [place] % (Auto) 5.0 % 06/29/24 13:53 Eos % (Auto) 3.0 % 06/29/24 13:53 Baso % (Auto) 0.7 % 06/29/24 13:53 Neut # (Auto) 7.12 10^3/uL (1.8-7.7) 06/29/24 13:53 Lymph # (Auto) 3.8 10^3/uL (0.8-4.8) 06/29/24 13:53 [place] # (Auto) 0.6 10^3/uL (0.2-0.9) 06/29/24 13:53 Eos # (Auto) 0.4 10^3/uL (0.0-0.8) 06/29/24 13:53 Baso # (Auto) 0.1 10^3/uL (0.0-0.1) 06/29/24 13:53 Nucleated RBC % (auto) 0 % 06/29/24 13:53 Nucleated RBCs # 0.0 /100WBC 06/29/24 13:53 PT 12.60 SECONDS (12.1-14.9) 06/29/24 13:53 INR 0.92 (0.8-1.2) 06/29/24 13:53 APTT 28.0 SECONDS (23.9-36.7) 06/29/24 13:53 Sodium 131 mmol/L (136-145) L 06/29/24 13:53 Potassium 4.5 mmol/L (3.5-5.1) 06/29/24 13:53 Chloride 96 mmol/L (98-107) L 06/29/24 13:53 Carbon Dioxide 22 mmol/L (22-29) 06/29/24 13:53 Anion Gap 17.5 (5-19) 06/29/24 13:53 BUN 11 mg/dL (6-20) 06/29/24 13:53 Creatinine 0.6 mg/dL (0.5-0.9) 06/29/24 13:53 GFR Calculation 104.2 mL/min (90-130) 06/29/24 13:53 Glucose 268 mg/dL (65-115) H 06/29/24 13:53 Calculated Osmolality 281 mOsm/kg (285-295) L 06/29/24 13:53 Calcium 9.6 mg/dL (8.5-10.5) 06/29/24 13:53 Total Bilirubin 0.4 mg/dL (0.15-1.2) 06/29/24 13:53 AST 68 U/L (0-32) H 06/29/24 13:53 ALT 78 U/L (0-33) H 06/29/24 13:53 Alkaline Phosphatase 170 U/L (35-105) H 06/29/24 13:53 Troponin T Baseline 10 ng/L (0-10) 06/29/24 13:53 Troponin T 120 Minute 12.44 ng/L (0-10) H 06/29/24 15:25 Delta Troponin T 2.44 ABS# (0-10) 06/29/24 15:25 C-Reactive Protein 23.7 mg/L (0.0-4.9) H 06/29/24 13:53 NT-Pro-B Natriuret Pep 64 pg/mL (0-125) 06/29/24 13:53 Total Protein 6.8 g/dL (6.6-8.7) 06/29/24 13:53 Albumin 4.2 g/dL (3.5-5.2) 06/29/24 13:53 Globulin 2.6 g/dL (1.3-4.6) 06/29/24 13:53 Urine Color Yellow (Yellow) 06/29/24 13:42 Urine Appearance Clear (CLEAR) 06/29/24 13:42 Urine pH 6.0 (5-7) 06/29/24 13:42 Ur Specific [place] 1.015 (1.005-1.030) 06/29/24 13:42 Urine Protein Negative (Negative) 06/29/24 13:42 Urine Glucose (UA) Trace (Normal) H 06/29/24 13:42 Urine Ketones Negative (Negative) 06/29/24 13:42 Urine Blood Trace (Negative) A 06/29/24 13:42 Urine Nitrate Negative (Negative) 06/29/24 13:42 Urine Bilirubin Negative (Negative) 06/29/24 13:42 Urine Urobilinogen 0.2 mg/dL (Negative) 06/29/24 13:42 Ur Leukocyte Esterase Negative (Negative) 06/29/24 13:42 Urine RBC 6-10 /hpf (0-2) 06/29/24 13:42 Urine WBC 0-5 /hpf (0-5) 06/29/24 13:42 Ur Squamous Epith Cells 6-10 /hpf (0-5) 06/29/24 13:42 Amorphous Sediment Not Reportable 06/29/24 13:42 Urine Bacteria None seen /hpf (NONE) 06/29/24 13:42 Hyaline Casts 0-4 /lpf H 06/29/24 13:42 Urine Opiates Screen Negative ng/mL (Negative) 06/29/24 13:42 Ur Barbiturates Screen Negative ng/mL (Negative) 06/29/24 13:42 Ur Phencyclidine Scrn Negative ng/mL (Negative) 06/29/24 13:42 Ur Amphetamines Screen Negative ng/mL (Negative) 06/29/24 13:42 U Benzodiazepines Scrn Positive ng/mL (Negative) H 06/29/24 13:42 Urine Cocaine Screen Negative ng/mL (Negative) 06/29/24 13:42 U Marijuana (THC) Screen Negative ng/mL (Negative) 06/29/24 13:42 All radiology interpretation(s) finalized by discharge Discharge Plan Discharge Patient Disposition: Home Clinical Impression: Headache due to hypertension, Transient diplopia, Essential (primary) hypertension Condition: Stable Prescriptions: New clonidine HCl 0.1 mg tablet 0.1 mg PO Q6H PRN (Reason: hypertensive emergency) 1 Days Qty: 20 0RF No Action insulin glargine [Basaglar KwikPen U-100 Insulin] 100 unit/mL (3 mL) insulin pen 20 unit SUBCUT QAM Qty: 15 0RF metoprolol succinate [Toprol XL] 100 mg tablet extended release 24 hr 100 mg PO QPM 30 Days Qty: 30 1RF acarbose 50 mg tablet 50 mg PO TID Qty: 90 1RF hydralazine 50 mg tablet 50 mg PO BID Qty: 60 2RF fluconazole 100 mg tablet 100 mg PO Q48H 14 Days Qty: 7 0RF sulfamethoxazole-trimethoprim [Bactrim DS] 800-160 mg tablet 1 tab PO BID 10 Days Qty: 20 0RF Discharge Orders: Discharge ED (Routine); Ordered 06/29/24 Ordered By: Nadir Wilson Referrals: Debbie Remy, [facility] [Primary Care Provider] - 4-7 days Discharge Diet: Cardiac Discharge Activity: Increase activity as tolerated Patient Instructions: Hypertensive Crisis (ED), Hypertension (ED) Activity Restrictions/Additional Instructions: Take your medications as prescribed please be mindful of how much salt containing products you add in your diet please for the follow-up primary care in 2 to 3 days your lab work and imaging of all come back unremarkable you are not found to have any intracranial abnormalities such as but not limited to an aneurysm or other concerning findings. Please return the interim if any of your symptoms persist or worse take the medication as prescribed for your breakthrough high blood pressure. 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
[2024-06-29 14:01] LABS: Basophils # 0.1 10^3/uL (0.0-0.1); Basophils % 0.7 %; Eosinophils # 0.4 10^3/uL (0.0-0.8); Hematocrit 44.9 % (36-47); Lymphocytes # 3.8 10^3/uL (0.8-4.8); Lymphocytes % 31.5 %; Mean Corpuscular HGB Conc 32.1 g/dL (30-55); Mean Corpuscular Hemoglobin 28.9 pg (27-33); Mean Corpuscular Volume 90.2 fl (85-98); Mean Platelet Volume 9.6 fL (7.4-10.4); Monocytes # 0.6 10^3/uL (0.2-0.9); Neutrophils # 7.12 10^3/uL (1.8-7.7); Neutrophils % 59.1 %; Nucleated Red Blood Cells % 0 %; Platelet Count 312 10^3/cmm (157-399); Red Blood Count 4.98 10^6/uL (3.85-5.65); Red Cell Distribution Width 13.2 % (12.1-15.1); White Blood Count 12.03 10^3/uL (3.29-11.43)
[2024-06-29 14:08] LABS: Bilirubin Urine Negative (Negative); Blood Urine Trace (Negative); Glucose Urine UA Trace (Normal); Ketones Urine Negative (Negative); Leukocyte Esterase Urine Negative (Negative); Nitrate Urine Negative (Negative); Protein Urine Negative (Negative); Specific Gravity, Urine 1.015 (1.005-1.030); Urine Appearance Clear (CLEAR); Urine Color Yellow (Yellow); Urobilinogen Urine 0.2 mg/dL (Negative)
[2024-06-29] MEDS: iohexol 350 mg/mL 500 mL Btl (per mL) IV (14:11)
[2024-06-29 14:13] LABS: Add Urine Microscopic? YES; Bacteria Urine None Seen /hpf; Hyaline Casts Urine 0-4 /lpf; WBC Urine 0-5 /hpf (0-5)
[2024-06-29 14:15] LABS: Amphetamines Screen Urine Negative (Negative); Barbiturates Screen Urine Negative (Negative); Benzodiazepines Screen Urine Positive (Negative); Cocaine Screen Urine Negative (Negative); Opiate Screen Urine Negative (Negative); PCP Screen Urine Negative (Negative); THC Screen Urine Negative (Negative)
[2024-06-29 14:16] LABS: INR 0.92 (0.8-1.2)
[2024-06-29 14:21] LABS: Troponin(5th) Baseline 10 ng/L (0-10)
[2024-06-29 14:25] VITALS: BP 176/111; PULSE 75; RESP 16; O2SAT 93
[2024-06-29] MEDS: hyDRALAzine 20 mg/mL INJ 1 mL 10 MG IVP (14:27)
[2024-06-29 14:37] LABS: Alanine Aminotransferase 78 U/L (0-33); Albumin Level 4.2 g/dL (3.5-5.2); Alkaline Phosphatase 170 U/L (35-105); Anion Gap 17.5 (5-19); Aspartate Amino Transferase 68 U/L (0-32); Blood Urea Nitrogen 11 mg/dL (6-20); C Reactive Protein 23.7 mg/L (0.0-4.9); Calcium 9.6 mg/dL (8.5-10.5); Carbon Dioxide 22 mmol/L (22-29); Chloride 96 mmol/L (98-107); Creatinine Clr Calc Pharmacy 137.8158; Globulin 2.6 g/dL (1.3-4.6); Glomerular Filtration Rate 104.2 mL/min (90-130); Glucose 268 mg/dL (65-115); NT Pro B Type Natriuretic Pept 64 pg/mL (0-125); Osmolality Calculated 281 mOsm/kg (285-295); Potassium 4.5 mmol/L (3.5-5.1); Sodium 131 mmol/L (136-145); Total Bilirubin 0.4 mg/dL (0.15-1.2); Total Protein 6.8 g/dL (6.6-8.7)
[2024-06-29 15:31] VITALS: BP 143/95; PULSE 86; RESP 16; O2SAT 94
[2024-06-29 16:06] LABS: Troponin 5 2HR 12.44 ng/L (0-10); Troponin 5 2HR Delta 2.44 ABS# (0-10)
[2024-06-29 17:01] VITALS: BP 164/89; PULSE 83; RESP 16; O2SAT 94
== END 2024-06-29 17:03 | disposition home or self-care (01) ==
PROVIDERS: Emergency Provider Emergency Medicine; PCP Nurse Practitioner
DX: I10 Essential (primary) hypertension (principal); H53.2 Diplopia; Z79.4 Long term (current) use of insulin; E11.9 Type 2 diabetes mellitus without complications
CPT/HCPCS: 36415; 70450; 70496; 70498; 71045; 80053; 80306; 81001; 83880; 84484; 85025; 85610; 85730; 86140; 93005; 96374; 99285; J0360